=== PATIENT | female | born 1990 | race American Indian/Alaskan Native ===

== ENCOUNTER 2017-01-27 16:36 | Emergency (ER) | payer MEDICAID, OTHER ==
[2017-01-27 17:01] VITALS: BP 126/85
--- NOTE | 2017-01-27 17:51 | Emergency Department Report ---
ED ENT HPI - General Chief complaint: Earache Stated complaint: BILAT EARACHE Time Seen by Provider: 01/27/17 17:47 Source: patient Mode of arrival: Ambulatory Limitations: No Limitations - History of Present Illness Initial comments: Patient complains of bilateral ear pain that started one month ago complaint: ear pain (bilateral) Onset/Timin -: month(s) Location: R ear, L ear Severity: severe Severity scale (0 -10): 9 Quality: aching Consistency: constant Improves with: none Worsens with: swallowing, eating Context-Epistaxis: other (none) Context- Dental: poor dental care, other Context- Ear: other (none) Associated Symptoms: denies: fever, cough, gum swelling, toothache, pain with swallowing, sore throat, tinnitus, hearing loss, discharge from ear, rhinorrhea - Related Data Previous Rx's Medication Instructions Recorded Last Taken Type Ferrous Sulfate [Feosol 325 MG tab] 325 mg PO BID #60 tablet 09/03/15 Unknown Rx HYDROcodone/APAP 5-325 [[place] 1 each PO Q6HR PRN #30 tablet 09/03/15 Unknown Rx 5/325] Ibuprofen [Motrin] 800 mg PO Q8HR PRN #30 tablet 09/03/15 Unknown Rx Vit W-Ca,Fe,FA(<1 mg) 1 each PO DAILY #30 tablet 09/03/15 Unknown Rx [ Vitamins] Acetaminophen/Codeine [Tylenol #3] 1 tab PO Q6H PRN #15 tab 09/10/15 Unknown Rx Penicillin Vk [Veetids TAB] 500 mg PO TID #30 tablet 09/10/15 Unknown Rx Amoxicillin [Amoxicillin TAB] 875 mg PO BID #20 tablet 01/27/17 Unknown Rx Ibuprofen [Motrin 800 MG tab] 800 mg PO Q8HR PRN #30 tablet 01/27/17 Unknown Rx Allergies Allergy/AdvReac Type Severity Reaction Status Date / Time beeswax Allergy Swelling Verified 09/10/15 11:35 sun Allergy Swelling Uncoded 09/10/15 11:35 ED Dental HPI - General Chief complaint: Earache Stated complaint: BILAT EARACHE Source: patient Mode of arrival: Ambulatory Limitations: No Limitations - Related Data Previous Rx's Medication Instructions Recorded Last Taken Type Ferrous Sulfate [Feosol 325 MG tab] 325 mg PO BID #60 tablet 09/03/15 Unknown Rx HYDROcodone/APAP 5-325 [[place] 1 each PO Q6HR PRN #30 tablet 09/03/15 Unknown Rx 5/325] Ibuprofen [Motrin] 800 mg PO Q8HR PRN #30 tablet 09/03/15 Unknown Rx Vit W-Ca,Fe,FA(<1 mg) 1 each PO DAILY #30 tablet 09/03/15 Unknown Rx [ Vitamins] Acetaminophen/Codeine [Tylenol #3] 1 tab PO Q6H PRN #15 tab 09/10/15 Unknown Rx Penicillin Vk [Veetids TAB] 500 mg PO TID #30 tablet 09/10/15 Unknown Rx Amoxicillin [Amoxicillin TAB] 875 mg PO BID #20 tablet 01/27/17 Unknown Rx Ibuprofen [Motrin 800 MG tab] 800 mg PO Q8HR PRN #30 tablet 01/27/17 Unknown Rx Allergies Allergy/AdvReac Type Severity Reaction Status Date / Time beeswax Allergy Swelling Verified 09/10/15 11:35 sun Allergy Swelling Uncoded 09/10/15 11:35 ED Review of Systems ROS: Stated complaint: BILAT EARACHE Other details as noted in HPI Constitutional: denies: chills, diaphoresis, fever, malaise, weakness Eyes: denies: eye pain, eye discharge, vision change ENT: ear pain (bilateral). denies: throat pain, dental pain, hearing loss, epistaxis, congestion Respiratory: denies: cough, orthopnea, shortness of breath, SOB with exertion, SOB at rest, stridor, wheezing Cardiovascular: denies: chest pain, palpitations, dyspnea on exertion, orthopnea , edema, syncope, paroxysmal nocturnal dyspnea Skin: denies: rash, lesions, change in color, change in hair/nails, pruritus Neurological: denies: headache, weakness, numbness, paresthesias, confusion ED Past Medical Hx - Past Medical History Hx Hypertension: Yes (txtd with Labetolol 100mg BID) Hx Diabetes: ("borderline") Hx Deep Vein Thrombosis: No Hx Renal Disease: No Hx Sickle Cell Disease: No Hx Seizures: No Hx Asthma: No Hx HIV: No Additional medical history: anemia - Surgical History Additional Surgical History: csection X 2 - Social History Smoking Status: Never Smoker Substance Use Type: None - Medications Home Medications: Home Medications Medication Instructions Recorded Confirmed Last Taken Type Ferrous Sulfate [Feosol 325 MG tab] 325 mg PO BID #60 tablet 09/03/15 Unknown Rx HYDROcodone/APAP 5-325 [[place] 1 each PO Q6HR PRN #30 tablet 09/03/15 Unknown Rx 5/325] Ibuprofen [Motrin] 800 mg PO Q8HR PRN #30 tablet 09/03/15 Unknown Rx Vit W-Ca,Fe,FA(<1 mg) 1 each PO DAILY #30 tablet 09/03/15 Unknown Rx [ Vitamins] Acetaminophen/Codeine [Tylenol #3] 1 tab PO Q6H PRN #15 tab 09/10/15 Unknown Rx Penicillin Vk [Veetids TAB] 500 mg PO TID #30 tablet 09/10/15 Unknown Rx Amoxicillin [Amoxicillin TAB] 875 mg PO BID #20 tablet 01/27/17 Unknown Rx Ibuprofen [Motrin 800 MG tab] 800 mg PO Q8HR PRN #30 tablet 01/27/17 Unknown Rx ED Physical Exam - General Limitations: No Limitations General appearance: alert, in no apparent distress - Head Head exam: Present: atraumatic, normocephalic, normal inspection - Eye Eye exam: Present: normal appearance, PERRL, EOMI Pupils: Present: normal accommodation - ENT ENT exam: Present: normal orophraynx, mucous membranes moist. Absent: mucous membranes dry - Expanded ENT Exam Expanded Ear exam: Present: normal external inspection. Absent: auricular hematoma, auricular trauma TM/Canal exam: Erythema: Right TM, Canal Tenderness: Left TM Mouth exam: Present: normal external inspection, tongue normal. Absent: drooling, trismus, muffled voice, tongue elevation, laceration Teeth exam: Present: normal inspection Throat exam: Positive: normal inspection. Negative: tonsillar erythema, tonsillomegaly, tonsillar exudate, R peritonsillar mass, L peritonsillar mass - Neck Neck exam: Present: normal inspection, full ROM. Absent: tenderness, meningismus, lymphadenopathy, thyromegaly - Respiratory Respiratory exam: Present: normal lung sounds bilaterally. Absent: respiratory distress, wheezes, rales, rhonchi, stridor, chest wall tenderness, accessory muscle use, decreased breath sounds, prolonged expiratory - Cardiovascular Cardiovascular Exam: Present: regular rate, normal rhythm, normal heart sounds. Absent: systolic murmur, diastolic murmur, rubs, gallop, clicks, JVD, S3 - Extremities Exam Extremities exam: Present: normal inspection, full ROM, normal capillary refill. Absent: pedal edema, joint swelling - Back Exam Back exam: Present: normal inspection, full ROM - Neurological Exam Neurological exam: Present: alert, oriented X3, CN II-XII intact, normal gait, reflexes normal. Absent: motor sensory deficit - Psychiatric Psychiatric exam: Present: normal affect, normal mood. Absent: depressed, agitated - Skin Skin exam: Present: warm, dry, intact, normal color. Absent: rash ED Course Vital Signs 01/27/17 16:59 Temperature 98.3 F Pulse Rate 94 H Respiratory 18 Rate Blood Pressure 126/85 O2 Sat by Pulse 100 Oximetry ED Medical Decision Making - Lab Data Vital Signs 01/27/17 16:59 Temperature 98.3 F Pulse Rate 94 H Respiratory 18 Rate Blood Pressure 126/85 O2 Sat by Pulse 100 Oximetry - Medical Decision Making During the course of ED, all other systems are unremarkable except for documentation in HPI. Patient was sent home with prescriptions for Ibuprofen and Amoxicillin, instructed to follow up with the selective referral given at discharge, she verbalized understanding - Differential Diagnosis Otitis Media, Otitis Externa, URI Critical care attestation.: If time is entered above; I have spent that time in minutes in the direct care of this critically ill patient, excluding procedure time. ED Disposition Clinical Impression: Otitis media Qualifiers: Otitis media type: suppurative Chronicity: acute Laterality: right Recurrence: not specified as recurrent Spontaneous tympanic membrane rupture: without spontaneous rupture Qualified Code(s): H66.001 - Acute suppurative otitis media without spontaneous rupture of ear drum, right ear Otitis externa Qualifiers: Otitis externa type: unspecified type Chronicity: acute Laterality: left Qualified Code(s): H60.502 - Unspecified acute noninfective otitis externa, left ear Disposition: - TO HOME OR SELFCARE Is pt being admited?: No Does the pt Need Aspirin: No Condition: Stable Instructions: Otitis Media (ED), Otitis Externa (ED) Additional Instructions: Take medication as directed. Follow up with the selective referral given at discharge Prescriptions: Amoxicillin [Amoxicillin TAB] 875 mg PO BID #20 tablet Ibuprofen [Motrin 800 MG tab] 800 mg PO Q8HR PRN #30 tablet PRN Reason: Pain Referrals: ANNE DURÁN MD [Staff Physician] - 3-5 Days KATELYN SILVEIRA MD [Staff Physician] - 3-5 Days FREE,JOE Kelsey MD [Staff Physician] - 3-5 Days Forms: Work/School Release Form(ED) Time of Disposition: 17:53
== END 2017-01-27 18:06 | disposition home or self-care (01) ==
LOC: ED 16:36
DX: H66.001 Acute suppurative otitis media without spontaneous rupture of ear drum, right ear (principal); H60.502 Unspecified acute noninfective otitis externa, left ear; E11.9 Type 2 diabetes mellitus without complications; D64.9 Anemia, unspecified; Z88.8 Allergy status to other drugs, medicaments and biological substances
CPT/HCPCS: 99282

== ENCOUNTER 2017-04-21 02:07 | Emergency (ER) | payer SELFPAY ==
[2017-04-21 03:09] LABS: Basophils % (Auto) 0.7 % (0.0-1.8); Eosinophils % (Auto) 2.3 % (0.0-4.3); Hematocrit 38.6 % (30.3-42.9); Hemoglobin 12.9 gm/dl (10.1-14.3); Mean Corpuscular HGB Conc 34 % (30-34); Mean Corpuscular Hemoglobin 28 pg (28-32); Mean Corpuscular Volume 85 fl (79-97); Platelet Count 260 K/mm3 (140-440); Red Blood Count 4.56 M/mm3 (3.65-5.03); Red Cell Distribution Width 15.2 % (13.2-15.2); White Blood Count 5.8 K/mm3 (4.5-11.0)
[2017-04-21 03:22] LABS: Anion Gap 17 mmol/L; BUN/Creatinine Ratio 15; Blood Urea Nitrogen 9 mg/dL (7-17); Carbon Dioxide 22 mmol/L (22-30); Chloride 101.4 mmol/L (98-107); Glucose 106 mg/dL (65-100); Potassium 3.7 mmol/L (3.6-5.0); Sodium 137 mmol/L (137-145)
[2017-04-21 03:51] LABS: Bilirubin,Urine NEG (Negative); Blood,Urine MOD (Negative); Ketones,Urine NEG (Negative); Leukocyte Esterase,Urine SM (Negative); Mucus,Urine FEW /HPF; Nitrite,Urine NEG (Negative); Protein,Urine <15 mg/dL mg/dL (Negative)
--- NOTE | 2017-04-21 06:06 | Ultrasound Report ---
FINAL REPORT PROCEDURE: US OB < = 14 WEEKS FETUS TECHNIQUE: Real-time transabdominal sonography of the uterus, placenta, amniotic fluid, adnexa, and fetus was performed with image documentation. Measurements were obtained to determine age/size. M-mode Doppler was used to document heartbeat. CPT 08343 HISTORY: vag bleeding COMPARISON: No prior studies are available for comparison. FINDINGS: Gestational Sac: Gestational sac measures 10.4 millimeters corresponding to estimated gestational age of 5 weeks and 5 days. There is a yolk sac. There is no visible pole or cardiac activity. Amniotic fluid: Normal. Cervix: Normal. Right Ovary: Normal. Left Ovary: Normal. Estimated delivery date: 12/17/2017 Uterus and adnexa: Normal. IMPRESSION: Probable normal early intrauterine gestation at 5 weeks and 5 days although at this time no pole or cardiac activity is detected. Followup is recommended.
--- NOTE | 2017-04-21 06:11 | Ultrasound Report ---
FINAL REPORT PROCEDURE: US OB TRANSVAGINAL TECHNIQUE: Real-time transvaginal sonography of the uterus, placenta, amniotic fluid, adnexa, and fetus was performed with image documentation. Measurements were obtained to determine age/size. M-mode Doppler was used to document heartbeat. CPT 23960 HISTORY: vag bleeding COMPARISON: No prior studies are available for comparison. FINDINGS: Gestational Sac: Gestational sac measures 10.4 millimeters corresponding to estimated gestational age of 5 weeks and 5 days. There is a yolk sac. There is no visible pole or cardiac activity. Amniotic fluid: Normal. Cervix: Normal. Right Ovary: Normal. Left Ovary: Normal. Estimated delivery date: 12/17/2017 Uterus and adnexa: Normal. IMPRESSION: Probable normal early intrauterine gestation at 5 weeks and 5 days although at this time no pole or cardiac activity is detected. Followup is recommended.
--- NOTE | 2017-04-21 09:23 | Emergency Department Report ---
HPI - General Chief Complaint: Vaginal Bleeding Time Seen by Provider: 04/21/17 09:12 - HPI HPI: Room 8 The patient is a 27-year-old female presenting with a chief complaint of vaginal bleeding. The patient states she is but has not yet seen an OB /[facility] for this . The patient states she had intercourse last night and then developed a small amount of vaginal bleeding. Patient states the vaginal bleeding stopped when she arrived to the ED. Patient denies abdominal pain. Patient currently denies any complaints Location: Pelvis Duration: [See above] Quality: Painless vaginal bleeding Severity: Mild Modifying factors: [see above] Context: [see above] Mode of transportation: Unknown. Visitor at bedside lying on stretcher with patient ED Past Medical Hx - Past Medical History Previous Medical History?: Yes Hx Hypertension: Yes (txtd with Labetolol 100mg BID) Hx Diabetes: ("borderline") Additional medical history: anemia - Surgical History Past Surgical History?: Yes Additional Surgical History: csection X 2 - Family History Family history: no significant - Social History Smoking Status: Current Some Day Smoker Substance Use Type: None (denies illicit drug use) - Medications Home Medications: Home Medications Medication Instructions Recorded Confirmed Last Taken Type Ferrous Sulfate [Feosol 325 MG tab] 325 mg PO BID #60 tablet 09/03/15 Unknown Rx HYDROcodone/APAP 5-325 [[place] 1 each PO Q6HR PRN #30 tablet 09/03/15 Unknown Rx 5/325] Ibuprofen [Motrin] 800 mg PO Q8HR PRN #30 tablet 09/03/15 Unknown Rx Vit Calc,Iron,Folic 1 each PO DAILY #30 tablet 09/03/15 Unknown Rx [ Vitamins] Acetaminophen/Codeine [Tylenol #3] 1 tab PO Q6H PRN #15 tab 09/10/15 Unknown Rx Penicillin Vk [Veetids TAB] 500 mg PO TID #30 tablet 09/10/15 Unknown Rx Amoxicillin [Amoxicillin TAB] 875 mg PO BID #20 tablet 01/27/17 Unknown Rx Ibuprofen [Motrin 800 MG tab] 800 mg PO Q8HR PRN #30 tablet 01/27/17 Unknown Rx ED Review of Systems ROS: Stated complaint: Vaginal Bleeding Other details as noted in HPI Comment: All other systems reviewed and negative Constitutional: denies: chills, fever Eyes: denies: eye pain, eye discharge, vision change ENT: denies: ear pain, throat pain Respiratory: denies: cough, shortness of breath, wheezing Cardiovascular: denies: chest pain, palpitations Endocrine: no symptoms reported Gastrointestinal: denies: abdominal pain Genitourinary: abnormal menses Musculoskeletal: denies: back pain, joint swelling, arthralgia Skin: denies: rash, lesions Neurological: denies: headache, weakness, paresthesias Psychiatric: denies: anxiety, depression Hematological/Lymphatic: denies: easy bleeding, easy bruising Physical Exam - Physical Exam Vital Signs: Vital Signs 04/21/17 04/21/17 02:12 07:24 Temperature 98.7 F 98.4 F Pulse Rate 92 H 74 Respiratory 17 16 Rate Blood Pressure 125/64 Blood Pressure 105/59 [Left] O2 Sat by Pulse 99 100 Oximetry Physical Exam: GENERAL: The patient is well-developed well-nourished female sleeping on stretcher not appearing to be in acute distress. And easily awakened and in no acute distress HEENT: Normocephalic. Atraumatic. Extraocular motions are intact. Patient has moist mucous membranes. NECK: Supple. Trachea midline CHEST/LUNGS: Clear to auscultation. There is no respiratory distress noted. HEART/CARDIOVASCULAR: Regular. There is no tachycardia. There is no gallop rub or murmur. ABDOMEN: Abdomen is soft, nontender. Patient has normal bowel sounds. There is no abdominal distention. SKIN: There is no rash. There is no edema. There is no diaphoresis. NEURO: The patient is awake, alert, and oriented. The patient is cooperative. The patient has normal speech MUSCULOSKELETAL: There is no evidence of acute injury. ED Course Vital Signs 04/21/17 04/21/17 02:12 07:24 Temperature 98.7 F 98.4 F Pulse Rate 92 H 74 Respiratory 17 16 Rate Blood Pressure 125/64 Blood Pressure 105/59 [Left] O2 Sat by Pulse 99 100 Oximetry ED Medical Decision Making - Lab Data Result diagrams: 04/21/17 02:53 04/21/17 02:53 Laboratory Tests 04/21/17 04/21/17 04/21/17 02:53 02:53 02:53 WBC 5.8 RBC 4.56 Hgb 12.9 Hct 38.6 MCV 85 MCH 28 MCHC 34 RDW 15.2 Plt Count 260 Lymph % (Auto) 38.2 H [place] % (Auto) 7.8 H Eos % (Auto) 2.3 Baso % (Auto) 0.7 Lymph # 2.2 [place] # 0.5 Eos # 0.1 Baso # 0.0 Seg Neutrophils % 51.0 Seg Neutrophils # 3.0 Sodium 137 Potassium 3.7 Chloride 101.4 Carbon Dioxide 22 Anion Gap 17 BUN 9 Creatinine 0.6 L Estimated GFR > 60 BUN/Creatinine Ratio 15 Glucose 106 H Calcium 9.0 HCG, Quant 04285 H Urine Color Urine Turbidity Urine pH Ur Specific Brock Urine Protein Urine Glucose (UA) Urine Ketones Urine Blood Urine Nitrite Urine Bilirubin Urine Urobilinogen Ur Leukocyte Esterase Urine WBC (Auto) Urine RBC (Auto) U Epithel Cells (Auto) Urine Mucus Blood Type Antibody Screen 04/21/17 04/21/17 02:53 Unknown WBC RBC Hgb Hct MCV MCH MCHC RDW Plt Count Lymph % (Auto) [place] % (Auto) Eos % (Auto) Baso % (Auto) Lymph # [place] # Eos # Baso # Seg Neutrophils % Seg Neutrophils # Sodium Potassium Chloride Carbon Dioxide Anion Gap BUN Creatinine Estimated GFR BUN/Creatinine Ratio Glucose Calcium HCG, Quant Urine Color Yellow Urine Turbidity Clear Urine pH 5.0 Ur Specific [place] 1.020 Urine Protein <15 mg/dl Urine Glucose (UA) Neg Urine Ketones Neg Urine Blood Mod Urine Nitrite Neg Urine Bilirubin Neg Urine Urobilinogen 2.0 Ur Leukocyte Esterase Sm Urine WBC (Auto) 27.0 H Urine RBC (Auto) 2.0 U Epithel Cells (Auto) 9.0 Urine Mucus Few Blood Type O POSITIVE Antibody Screen Negative - Radiology Data Radiology results: report reviewed (pelvic ultrasound), image reviewed (pelvic ultrasound) FINAL REPORT PROCEDURE: US OB TRANSVAGINAL TECHNIQUE: Real-time transvaginal sonography of the uterus, placenta, amniotic fluid, adnexa, and fetus was performed with image documentation. Measurements were obtained to determine age/size. M-mode Doppler was used to document heartbeat. CPT 08221 HISTORY: vag bleeding COMPARISON: No prior studies are available for comparison. FINDINGS: Gestational Sac: Gestational sac measures 10.4 millimeters corresponding to estimated gestational age of 5 weeks and 5 days. There is a yolk sac. There is no visible pole or cardiac activity. Amniotic fluid: Normal. Cervix: Normal. Right Ovary: Normal. Left Ovary: Normal. Estimated delivery date: 12/17/2017 Uterus and adnexa: Normal. IMPRESSION: Probable normal early intrauterine gestation at 5 weeks and 5 days although at this time no pole or cardiac activity is detected. Followup is recommended. Transcribed By: CO Dictated By: JUSTEN REINA MD Electronically Authenticated By: JUSTEN REINA MD Signed Date/Time: 04/21/17208 DD/ 8 TD/TT: 04/21/17208 - Medical Decision Making Patient was advised to be on bedrest and pelvic rest until cleared by her ARCHIVES DIRECTOR - Differential Diagnosis threatened , spontaneous , missed Critical care attestation.: If time is entered above; I have spent that time in minutes in the direct care of this critically ill patient, excluding procedure time. ED Disposition Clinical Impression: Threatened Disposition: [id number] TO HOME OR SELFCARE Is pt being admited?: No Does the pt Need Aspirin: No Condition: Stable Instructions: Threatened Miscarriage (ED) Additional Instructions: Return to the emergency department immediately should you develop worsening symptoms, fever, inability to tolerate food or liquid or any other concerns. Referrals: [facility] [Provider Group] - 3-5 Days Time of Disposition: 09:23
[2017-04-21 09:35] VITALS: BP 118/51
== END 2017-04-21 09:35 | disposition home or self-care (01) ==
LOC: ED 02:07
DX: O20.0 Threatened abortion (principal); I10 Essential (primary) hypertension; E11.9 Type 2 diabetes mellitus without complications; F17.200 Nicotine dependence, unspecified, uncomplicated; Z3A.01 Less than 8 weeks gestation of pregnancy
CPT/HCPCS: 36415; 76801; 76817; 80048; 81001; 84702; 85025; 86850; 86900; 86901; 87086

== ENCOUNTER 2017-09-21 16:04 | Outpatient (CLI) | payer MEDICAID ==
[2017-09-21] MEDS ORDERED: LACTATED RINGERS 1,000 ML IV ONE (16:19)
[2017-09-21] MEDS ORDERED: ZOFRAN IV STA (16:20)
== END 2017-09-21 17:40 | disposition home or self-care (01) ==
LOC: TRG 16:04 → LD 16:04 → TRG 17:40
PROVIDERS: ATTEND Obstetrics & Gynecology
DX: O47.02 False labor before 37 completed weeks of gestation, second trimester (principal); Z79.899 Other long term (current) drug therapy; Z3A.27 27 weeks gestation of pregnancy
CPT/HCPCS: 59025; 82962; 96360; 96374; J2405; J7120

== ENCOUNTER 2017-11-26 13:57 | Outpatient (CLI) | payer MEDICAID ==
[2017-11-26 14:48] LABS: Bacteria,Urine 1+ /HPF (Negative); Mucus,Urine FEW /HPF
[2017-11-26 14:58] LABS: Bilirubin,Urine NEG (Negative); Blood,Urine NEG (Negative); Color,Urine Yellow (Yellow); Urobilinogen,Urine < 2.0 mg/dL (<2.0)
[2017-11-26 15:37] VITALS: BP 108/61
== END 2017-11-26 15:30 | disposition left against medical advice (07) ==
LOC: TRG 13:57
PROVIDERS: ATTEND Obstetrics & Gynecology
DX: O47.1 False labor at or after 37 completed weeks of gestation (principal); Z3A.37 37 weeks gestation of pregnancy
CPT/HCPCS: 59025; 81001

== ENCOUNTER 2017-12-05 08:20 | Outpatient (CLI) | payer MEDICAID ==
[2017-12-05 08:57] VITALS: BP 104/67
== END 2017-12-05 09:40 | disposition left against medical advice (07) ==
LOC: TRG 08:20
PROVIDERS: ATTEND Obstetrics & Gynecology
DX: O47.1 False labor at or after 37 completed weeks of gestation (principal); Z87.891 Personal history of nicotine dependence; Z3A.38 38 weeks gestation of pregnancy

== ENCOUNTER 2018-10-27 13:41 | Inpatient (IN) | payer MEDICAID ==
[2018-10-27] MEDS ORDERED: XOPENEX IH ONE (13:55)
[2018-10-27] MEDS ORDERED: ATROVENT IH ONE ×3 (13:56→19:31)
[2018-10-27] MEDS ORDERED: PEPCID IV ONE (14:23)
[2018-10-27] MEDS ORDERED: PROVENTIL IH ONE ×2 (14:23→18:54)
[2018-10-27] MEDS ORDERED: SOLU-Medrol IV ONE (14:23)
[2018-10-27] MEDS ORDERED: MAGNESIUM SULFATE 2GM/50ML 2 GM/50 ML BAG IV ONE (14:23)
[2018-10-27] MEDS ORDERED: NACL 0.9% 500 ML 500 ML IV ONE ×2 (14:24→16:26)
--- NOTE | 2018-10-27 14:25 | Emergency Department Report ---
ED General Adult HPI - General Chief complaint: Dyspnea/Respdistress Stated complaint: CHEST PAIN/SOB Time Seen by Provider: 10/27/18 14:14 Source: patient, RN notes reviewed, old records reviewed Mode of arrival: Ambulatory Limitations: No Limitations - History of Present Illness Initial comments: This is a 28-year-old female. The patient is not known to this provider previously. She reports that she is 6, para 5. Last menstrual period is March 13. Reports no chronic medical conditions. Her primary care [employer] doctor is [facility] The patient presents to the emergency room today with complaint of cough, wheezing, shortness of breath, chest wall pain. She does not have a formal diagnosis of asthma. She does not smoke cigarettes. Her symptoms started a day or 2 ago. The cough and wheezing and shortness of breath are constant. It was with physical exertion. It decreased with rest. The chest wall pain is central. It increases with palpation. It decreases with rest. There is no vomiting, diaphoresis. There is no leg pain. There is no leg swelling. No recent aspirin consumption. Patient reports she is approximately 32 weeks and 4 days . Endorses compliance with outpatient medications. -: Gradual Location: chest Severity scale (0 -10): 6 Quality: aching Consistency: intermittent Improves with: rest Worsens with: other (chest wall pain increases with coughing, movement and palpation) Associated Symptoms: chest pain, cough - Related Data Previous Rx's Medication Instructions Recorded Last Taken Type Ferrous Sulfate [Feosol 325 MG tab] 325 mg PO BID #60 tablet 09/03/15 11/26/17 09:00 Rx 1 Vit Calc,Iron,Folic 1 each PO DAILY #30 tablet 09/03/15 11/26/17 09:00 Rx [ Vitamins] Allergies Allergy/AdvReac Type Severity Reaction Status Date / Time beeswax Allergy Swelling Verified 10/27/18 13:41 sun Allergy Swelling Uncoded 09/10/15 11:35 ED Review of Systems ROS: Stated complaint: CHEST PAIN/SOB Other details as noted in HPI Constitutional: malaise. denies: fever ENT: congestion Respiratory: cough, shortness of breath, SOB with exertion, wheezing Cardiovascular: chest pain Gastrointestinal: denies: abdominal pain, nausea, vomiting Genitourinary: denies: dysuria Musculoskeletal: denies: back pain Skin: denies: lesions Neurological: denies: headache, weakness Psychiatric: anxiety ED Past Medical Hx - Past Medical History Hx Hypertension: Yes (dx at 14 yrs old takes lisinopril 10mg d/cd during ) Hx Diabetes: No (?gdm) Hx Deep Vein Thrombosis: No Hx Renal Disease: No Hx Sickle Cell Disease: No Hx Seizures: No Hx Asthma: No Hx COPD: No Hx HIV: No Additional medical history: anemia - Surgical History Additional Surgical History: csection X 2 - Social History Smoking Status: Former Smoker Substance Use Type: None - Medications Home Medications: Home Medications Medication Instructions Recorded Confirmed Last Taken Type Ferrous Sulfate [Feosol 325 MG tab] 325 mg PO BID #60 tablet 09/03/15 11/26/17 11/26/17 09:00 Rx 1 Vit Calc,Iron,Folic 1 each PO DAILY #30 tablet 09/03/15 11/26/17 09:00 Rx [ Vitamins] ED Physical Exam - General Limitations: No Limitations General appearance: alert, in distress, obese - Head Head exam: Present: atraumatic, normocephalic - Eye Eye exam: Present: normal appearance, EOMI. Absent: nystagmus - ENT ENT exam: Present: normal exam, normal orophraynx, mucous membranes moist, normal external ear exam - Neck Neck exam: Present: normal inspection, full ROM. Absent: tenderness, meningismus - Respiratory Respiratory exam: Present: respiratory distress, wheezes, rhonchi - Cardiovascular Cardiovascular Exam: Present: normal rhythm, tachycardia, normal heart sounds. Absent: systolic murmur, diastolic murmur, rubs, gallop - GI/Abdominal GI/Abdominal exam: Present: soft, other (uterus consistent with size and dates.). Absent: distended, tenderness, guarding, rigid, pulsatile mass - Extremities Exam Extremities exam: Present: normal inspection, full ROM, other (2+ pulses noted in the bilateral upper, lower extremities. Compartments soft. No long bony tenderness. The pelvis is stable.). Absent: joint swelling, calf tenderness - Back Exam Back exam: Present: normal inspection, full ROM. Absent: tenderness, CVA tenderness (R), CVA tenderness (L), paraspinal tenderness, vertebral tenderness - Neurological Exam Neurological exam: Present: alert, oriented X3, other (Extraocular movements intact. Tongue midline. No facial droop. Facial sensation intact to light touch in the V1, V2, V3 distribution bilaterally. 5 and 5 strength in 4 extremities.. Sensation is intact to light touch in 4 extremities.). Absent: motor sensory deficit - Psychiatric Psychiatric exam: Present: anxious - Skin Skin exam: Present: warm, dry, intact, normal color. Absent: rash ED Course Vital Signs 10/27/18 10/27/18 10/27/18 13:49 14:00 14:01 Temperature Pulse Rate 129 H 129 H Pulse Rate [ 128 H Anterior Bilateral] Respiratory 21 20 Rate Respiratory 32 H Rate [Anterior Bilateral] Blood Pressure 104/65 O2 Sat by Pulse 97 99 Oximetry 10/27/18 10/27/18 10/27/18 14:09 14:20 14:30 Temperature Pulse Rate 122 H Pulse Rate [ 126 H Anterior Bilateral] Respiratory 32 H Rate Respiratory 32 H Rate [Anterior Bilateral] Blood Pressure 125/72 O2 Sat by Pulse 99 98 Oximetry 10/27/18 10/27/18 10/27/18 14:31 14:46 15:01 Temperature 99 F Pulse Rate 126 H Pulse Rate [ 119 H Anterior Bilateral] Respiratory 30 H Rate Respiratory 24 Rate [Anterior Bilateral] Blood Pressure 132/69 O2 Sat by Pulse 97 Oximetry 10/27/18 10/27/18 10/27/18 15:31 16:01 17:01 Temperature Pulse Rate 123 H 127 H Pulse Rate [ Anterior Bilateral] Respiratory 21 12 Rate Respiratory Rate [Anterior Bilateral] Blood Pressure 132/69 123/67 111/43 O2 Sat by Pulse 97 96 98 Oximetry 10/27/18 18:00 Temperature Pulse Rate 129 H Pulse Rate [ Anterior Bilateral] Respiratory 31 H Rate Respiratory Rate [Anterior Bilateral] Blood Pressure 101/58 O2 Sat by Pulse 95 Oximetry - Reevaluation(s) Reevaluation #1: 10/27/18 17:45 Differential diagnosis, including but not limited to:, bronchitis, asthma, COPD, pneumonia, pulmonary embolus, myocarditis, pericarditis, acute coronary syndrome, costochondritis 10/27/18 17:46 Assessment and plan: 28-year-old female who is , with cough, wheezing, chest wall tenderness, suspect bronchitis with superimposed costochondritis. However, she is very tachycardic, and she reports this is never happened to her before. Therefore, evaluation for pulmonary embolus is indicated. Patient does not endorse any independent or isolated-like symptoms. There before, as per current algorithm make recommendations, imaging is indic ated in the context of an elevated d-dimer. I had extensive discussion with the patient and family present, also with nurse Rodrigue Grace present We discussed the various options of diagnostic workup, including VQ scan versus CT angiogram versus not obtaining any diagnostic imaging. The risks, benefits, alternatives and side effects were discussed with the patient of these particular option. The patient has given informed written and verbal consent for CT angiogram of the chest. She is fairly tachycardic, this may be secondary to albuterol, anxiety, physiologic tachycardia of . We will therefore also treat the patient's pain and give her IV fluids.. Troponin is negative 2. EKG morphologically unchanged 2. Creatinine kinase pending. Clinically do not suspect acute coronary syndrome at this time. 10/27/18 17:53 Reevaluation #2: 10/27/18 18:55 CT scan of the chest unfortunately nondiagnostic. No large pulmonary embolus is identified. Limited evaluation in the distal branches is noted. Question pneumonia/groundglass opacities in the left lung apex. Patient still tachycardic. Still having rhonchi. Appears uncomfortable. We will cover empirically for community-acquired pneumonia. Given the history and physical, I do not clinically suspect significant pulmonary embolus at this time. Given that she has a viable , I will withhold systemic anticoagulation at this time. We will withhold aspirin, given that her chest pain is likely coming from possible early pneumonia, and presumed costochondritis. Hospital team was paged to arrange admission. In addition, given her vital sign abnormalities, the patient is meeting criteria for systemic inflammatory response syndrome. 10/27/18 19:05 Reevaluation #3: 10/27/18 19:13 Dr. Escalona accepts to the medical service. ED Medical Decision Making - Lab Data Result diagrams: 10/27/18 14:37 10/27/18 14:37 Vital Signs 10/27/18 10/27/18 10/27/18 13:49 14:00 14:01 Temperature Pulse Rate 129 H 129 H Pulse Rate [ 128 H Anterior Bilateral] Respiratory 21 20 Rate Respiratory 32 H Rate [Anterior Bilateral] Blood Pressure 104/65 O2 Sat by Pulse 97 99 Oximetry 05/27/19 05/27/19 05/27/19 14:09 14:20 14:30 Temperature Pulse Rate 122 H Pulse Rate [ 126 H Anterior Bilateral] Respiratory 32 H Rate Respiratory 32 H Rate [Anterior Bilateral] Blood Pressure 125/72 O2 Sat by Pulse 99 98 Oximetry 10/27/18 10/27/18 10/27/18 14:31 14:46 15:01 Temperature 99 F Pulse Rate 126 H Pulse Rate [ 119 H Anterior Bilateral] Respiratory 30 H Rate Respiratory 24 Rate [Anterior Bilateral] Blood Pressure 132/69 O2 Sat by Pulse 97 Oximetry 10/27/18 10/27/18 10/27/18 15:31 16:01 17:01 Temperature Pulse Rate 123 H 127 H Pulse Rate [ Anterior Bilateral] Respiratory 21 12 Rate Respiratory Rate [Anterior Bilateral] Blood Pressure 132/69 123/67 111/43 O2 Sat by Pulse 97 96 98 Oximetry Lab Results 10/27/18 10/27/18 10/27/18 Range/Units 14:37 14:37 14:37 WBC 6.3 (4.5-11.0) K/mm3 RBC 4.10 (3.65-5.03) M/mm3 Hgb 9.0 L (10.1-14.3) gm/dl Hct 28.9 L (30.3-42.9) % MCV 71 L (79-97) fl MCH 22 L (28-32) pg MCHC 31 (30-34) % RDW 20.7 H (13.2-15.2) % Plt Count 198 (140-440) K/mm3 Lymph % (Auto) 23.3 (13.4-35.0) % [place] % (Auto) 12.3 H (0.0-7.3) % Eos % (Auto) 0.4 (0.0-4.3) % Baso % (Auto) 0.2 (0.0-1.8) % Lymph # 1.5 (1.2-5.4) K/mm3 [place] # 0.8 (0.0-0.8) K/mm3 Eos # 0.0 (0.0-0.4) K/mm3 Baso # 0.0 (0.0-0.1) K/mm3 Seg Neutrophils % 63.8 (40.0-70.0) % Seg Neutrophils # 4.0 (1.8-7.7) K/mm3 PT 13.2 (12.2-14.9) Sec. INR 0.95 (0.87-1.13) D-Dimer 612.61 H (0-234) ng/mlDDU Sodium 136 L (137-145) mmol/L Potassium 3.5 L (3.6-5.0) mmol/L Chloride 103.3 (98-107) mmol/L Carbon Dioxide 19 L (22-30) mmol/L Anion Gap 17 mmol/L BUN 4 L (7-17) mg/dL Creatinine 0.4 L (0.7-1.2) mg/dL Estimated GFR > 60 ml/min BUN/Creatinine Ratio 10 % Glucose 86 (65-100) mg/dL Calcium 8.8 (8.4-10.2) mg/dL Magnesium (1.7-2.3) mg/dL Total Bilirubin (0.1-1.2) mg/dL Direct Bilirubin (0-0.2) mg/dL Indirect Bilirubin mg/dL AST (5-40) units/L ALT (7-56) units/L Alkaline Phosphatase (35-129) units/L Troponin T (0.00-0.029) ng/mL NT-Pro-B Natriuret Pep (0-450) pg/mL Total Protein (6.3-8.2) g/dL Albumin (3.9-5) g/dL Albumin/Globulin Ratio % Urine Color (Yellow) Urine Turbidity (Clear) Urine pH (5.0-7.0) Ur Specific [place] (1.003-1.030) Urine Protein (Negative) mg/dL Urine Glucose (UA) (Negative) mg/dL Urine Ketones (Negative) mg/dL Urine Blood (Negative) Urine Nitrite (Negative) Urine Bilirubin (Negative) Urine Urobilinogen (<2.0) mg/dL Ur Leukocyte Esterase (Negative) Urine WBC (Auto) (0.0-6.0) /HPF Urine RBC (Auto) (0.0-6.0) /HPF U Epithel Cells (Auto) (0-13.0) /HPF Urine Mucus /HPF 10/27/18 10/27/18 10/27/18 Range/Units 14:37 15:46 16:32 WBC (4.5-11.0) K/mm3 RBC (3.65-5.03) M/mm3 Hgb (10.1-14.3) gm/dl Hct (30.3-42.9) % MCV (79-97) fl MCH (28-32) pg MCHC (30-34) % RDW (13.2-15.2) % Plt Count (140-440) K/mm3 Lymph % (Auto) (13.4-35.0) % [place] % (Auto) (0.0-7.3) % Eos % (Auto) (0.0-4.3) % Baso % (Auto) (0.0-1.8) % Lymph # (1.2-5.4) K/mm3 [place] # (0.0-0.8) K/mm3 Eos # (0.0-0.4) K/mm3 Baso # (0.0-0.1) K/mm3 Seg Neutrophils % (40.0-70.0) % Seg Neutrophils # (1.8-7.7) K/mm3 PT (12.2-14.9) Sec. INR (0.87-1.13) D-Dimer (0-234) ng/mlDDU Sodium (137-145) mmol/L Potassium (3.6-5.0) mmol/L Chloride (98-107) mmol/L Carbon Dioxide (22-30) mmol/L Anion Gap mmol/L BUN (7-17) mg/dL Creatinine (0.7-1.2) mg/dL Estimated GFR ml/min BUN/Creatinine Ratio % Glucose (65-100) mg/dL Calcium (8.4-10.2) mg/dL Magnesium 1.80 (1.7-2.3) mg/dL Total Bilirubin 0.60 (0.1-1.2) mg/dL Direct Bilirubin < 0.2 (0-0.2) mg/dL Indirect Bilirubin 0.4 mg/dL AST 34 (5-40) units/L ALT 16 (7-56) units/L Alkaline Phosphatase 189 H (35-129) units/L Troponin T < 0.010 < 0.010 (0.00-0.029) ng/mL NT-Pro-B Natriuret Pep 76.90 (0-450) pg/mL Total Protein 6.8 (6.3-8.2) g/dL Albumin 3.6 L (3.9-5) g/dL Albumin/Globulin Ratio 1.1 % Urine Color Yellow (Yellow) Urine Turbidity Slightly-cloudy (Clear) Urine pH 6.0 (5.0-7.0) Ur Specific [place] 1.017 (1.003-1.030) Urine Protein 30 mg/dl (Negative) mg/dL Urine Glucose (UA) Neg (Negative) mg/dL Urine Ketones 20 (Negative) mg/dL Urine Blood Neg (Negative) Urine Nitrite Neg (Negative) Urine Bilirubin Neg (Negative) Urine Urobilinogen < 2.0 (<2.0) mg/dL Ur Leukocyte Esterase Sm (Negative) Urine WBC (Auto) 15.0 H (0.0-6.0) /HPF Urine RBC (Auto) 3.0 (0.0-6.0) /HPF U Epithel Cells (Auto) 5.0 (0-13.0) /HPF Urine Mucus 2+ /HPF - EKG Data -: EKG Interpreted by Ok - EKG Data 10/27/18 17:56 EKG #1 shows a sinus tachycardia, normal axis, normal intervals, motion artifact, QTC within normal limits, not consistent with ST elevation myocardial infarction. EKG #2 appears to be unchanged. - Radiology Data Radiology results: pending, report reviewed, image reviewed CT scan of the chest shows no large pulmonary embolus. Limited evaluation of the mid to distal branches. Few focal ground glass opacities in the left apex, nonspecific, may be related to early infiltrate. Critical care attestation.: If time is entered above; I have spent that time in minutes in the direct care of this critically ill patient, excluding procedure time. ED Disposition Clinical Impression: Chest wall pain, Costochondritis, , SIRS (systemic inflammatory response syndrome) Disposition: OP ADMIT IP TO THIS HOSP Is pt being admited?: Yes Condition: Good Instructions: Chest Pain (ED) Referrals: BENEDICT FREEMAN MD [Primary Care Provider] - 3-5 Days
[2018-10-27 14:44] LABS: Basophils % (Auto) 0.2 % (0.0-1.8); Eosinophils % (Auto) 0.4 % (0.0-4.3); Hematocrit 28.9 % (30.3-42.9); Lymphocytes # (Auto) 1.5 K/mm3 (1.2-5.4); Lymphocytes % (Auto) 23.3 % (13.4-35.0); Mean Corpuscular HGB Conc 31 % (30-34); Mean Corpuscular Volume 71 fl (79-97); Monocytes # (Auto) 0.8 K/mm3 (0.0-0.8); Monocytes % (Auto) 12.3 % (0.0-7.3); Platelet Count 198 K/mm3 (140-440); Red Cell Distribution Width 20.7 % (13.2-15.2)
[2018-10-27 15:02] LABS: BUN/Creatinine Ratio 10; Blood Urea Nitrogen 4 mg/dL (7-17); Calcium 8.8 mg/dL (8.4-10.2); Hemolysis Index 25
[2018-10-27 15:03] LABS: INR 0.95 (0.87-1.13)
[2018-10-27 15:06] LABS: Alanine Aminotransferase 16 units/L (7-56); Albumin 3.6 g/dL (3.9-5)
[2018-10-27 15:08] LABS: Bilirubin,Direct < 0.2 mg/dL (0-0.2)
[2018-10-27 16:09] LABS: Bilirubin,Urine NEG (Negative); Blood,Urine NEG (Negative); Color,Urine Yellow (Yellow); Mucus,Urine 2+ /HPF; Urobilinogen,Urine < 2.0 mg/dL (<2.0)
[2018-10-27] MEDS ORDERED: TYLENOL PO ONE (17:45)
[2018-10-27] MEDS ORDERED: ROCEPHIN/NS 1 GM/50 ML 1 GM/50 ML BAG IV ONE (18:39)
[2018-10-27] MEDS ORDERED: NACL 0.9% 1000 ML 2,000 ML IV ONE (19:03)
[2018-10-27] MEDS ORDERED: NACL 0.9% 1000 ML 1,000 ML IV ONE (19:03)
[2018-10-27] MEDS ORDERED: SODIUM CHLORIDE FLUSH SYRINGE 10 ML IV PRN (19:37)
[2018-10-27] MEDS ORDERED: ZOFRAN IV PRN (19:37)
--- NOTE | 2018-10-27 19:52 | History and Physical Report ---
History of Present Illness Date of examination: 10/27/18 History of present illness: 28 year old woman with a history of hypertension, 32 weeks comes emergency room with complaints of shortness of breath and wheezing that started yesterday. Also complaining of cough productive of ratliff phlegm. She's been using her 's nebulizer treatments without any improvement in her symptoms. Also complaining of pain in the upper chest when she coughs. Former smoker prior to the Review of systems Constitutional: no weight loss, chills, fever Ears, eyes, nose, mouth and throat: no nasal congestion, no nasal discharge, no sinus pressure, no vision change, no red eye. Neck: No neck pain or rigidity. Cardiovascular: no palpitations Respiratory:+ cough, shortness of breath Gastrointestinal: no hematochezia, abdominal pain Genitourinary : no frequency , no hematuria Musculoskeletal: no joint swelling or muscle ache Integumentary: no rash, no pruritis Neurological: no parathesias, no focal weakness Endocrine: no cold or heat intolerance, no polyuria or polydipsia Hematologic/Lymphatic: no easy bruising, no easy bleeding, no gland swelling Allergic/Immunologic: no urticaria, no angioedema. PAST MEDICAL HISTORY:hypertension, PAST SURGICAL HISTORY: 2 SOCIAL HISTORY: Denies alcohol, drugs, tobacco FAMILY HISTORY: Hypertension Medications and Allergies Allergies Allergy/AdvReac Type Severity Reaction Status Date / Time beeswax Allergy Swelling Verified 10/27/18 13:41 sun Allergy Swelling Uncoded 09/10/15 11:35 Home Medications Medication Instructions Recorded Confirmed Last Taken Type Ferrous Sulfate [Feosol 325 MG tab] 325 mg PO BID #60 tablet 09/03/15 11/26/17 11/26/17 09:00 Rx 1 Vit Calc,Iron,Folic 1 each PO DAILY #30 tablet 09/03/15 11/26/17 09:00 Rx [ Vitamins] Active Meds: Active Medications Acetaminophen (Tylenol) 650 mg PO Q4H PRN PRN Reason: Pain MILD(1-3)/Fever >100.5/CHAKRABORTY Enoxaparin Sodium (Lovenox) 30 mg SUB-Q QDAY AMIE Sodium Chloride (Nacl 0.9% 1000 Ml) 1,000 mls @ 999 mls/hr IV BOLUS ONE Stop: 10/27/18 20:03 Last Admin: 10/27/18 19:43 Dose: 999 mls/hr Documented by: Ceftriaxone Sodium (Rocephin/Ns 1 Gm/50 Ml) 1 gm in 50 mls @ 100 mls/hr IV Q24HR AMIE; Protocol Azithromycin 500 mg/ Sodium (Chloride) 250 mls @ 250 mls/hr IV Q24HR AMIE; Protocol Ondansetron HCl (Zofran) 4 mg IV Q4H PRN PRN Reason: Nausea And Vomiting Sodium Chloride (Sodium Chloride Flush Syringe 10 Ml) 10 ml IV BID AMIE Sodium Chloride (Sodium Chloride Flush Syringe 10 Ml) 10 ml IV PRN PRN PRN Reason: LINE FLUSH Exam - Physical Exam Narrative exam: General Apperance: The patient lying in bed, breathing comfortable HEENT: Normocephalic, atraumatic. Pupils equally round and reactive to light, EOMI, no sclericterus or JVD or thyromegaly or nodule. , no carotid bruit, mucous membranes moist, no exudate or erythema Heart: S1-S2, regular is rhythm Lungs: Crackles bilaterally, breathing comfortable Abdomen: Positive bowel sounds, soft, nontender, nondistended, no organomegaly Extremities: No edema cyanosis clubbing Skin: no rash, nodule, warm and dry Neuro: cranial nerves 2-12 intact, speech is fluent, motor/sensory intact - Constitutional Vitals: Temp Pulse Resp BP Pulse Ox 98.1 F 128 H 26 H 116/61 95 10/27/18 19:36 10/27/18 19:36 10/27/18 19:36 10/27/18 19:36 10/27/18 18:00 Results - Labs CBC & Chem 7: 10/27/18 14:37 10/27/18 14:37 Labs: Abnormal lab results 10/27/18 10/27/18 10/27/18 Range/Units 14:37 14:37 14:37 Hgb 9.0 L (10.1-14.3) gm/dl Hct 28.9 L (30.3-42.9) % MCV 71 L (79-97) fl MCH 22 L (28-32) pg RDW 20.7 H (13.2-15.2) % [place] % (Auto) 12.3 H (0.0-7.3) % D-Dimer 612.61 H (0-234) ng/mlDDU Sodium 136 L (137-145) mmol/L Potassium 3.5 L (3.6-5.0) mmol/L Carbon Dioxide 19 L (22-30) mmol/L BUN 4 L (7-17) mg/dL Creatinine 0.4 L (0.7-1.2) mg/dL Alkaline Phosphatase (35-129) units/L Total Creatine Kinase (30-135) units/L Albumin (3.9-5) g/dL Urine WBC (Auto) (0.0-6.0) /HPF 10/27/18 10/27/18 10/27/18 Range/Units 14:37 15:46 17:49 Hgb (10.1-14.3) gm/dl Hct (30.3-42.9) % MCV (79-97) fl MCH (28-32) pg RDW (13.2-15.2) % [place] % (Auto) (0.0-7.3) % D-Dimer (0-234) ng/mlDDU Sodium (137-145) mmol/L Potassium (3.6-5.0) mmol/L Carbon Dioxide (22-30) mmol/L BUN (7-17) mg/dL Creatinine (0.7-1.2) mg/dL Alkaline Phosphatase 189 H (35-129) units/L Total Creatine Kinase 349 H (30-135) units/L Albumin 3.6 L (3.9-5) g/dL Urine WBC (Auto) 15.0 H (0.0-6.0) /HPF - Imaging and Cardiology CT scan - chest: report reviewed Assessment and Plan Assessment Community-acquired pneumonia Plan Admit to medicine Start IV Rocephin, azithromycin, steroids Breathing treatments DVT prophylaxis
[2018-10-27] MEDS: SODIUM CHLORIDE FLUSH SYRINGE 10 ML IV SCH (22:10)
[2018-10-28] MEDS: TYLENOL PO PRN ×3 (01:07→20:33)
[2018-10-28] MEDS: ATROVENT IH PRN ×3 (05:52→14:30)
[2018-10-28 06:26] LABS: Basophils % (Auto) 0.2 % (0.0-1.8); Eosinophils % (Auto) 0.1 % (0.0-4.3); Hematocrit 27.5 % (30.3-42.9); Hemoglobin 8.5 gm/dl (10.1-14.3); Lymphocytes # (Auto) 1.1 K/mm3 (1.2-5.4); Lymphocytes % (Auto) 15.5 % (13.4-35.0); Mean Corpuscular HGB Conc 31 % (30-34); Mean Corpuscular Volume 70 fl (79-97); Monocytes # (Auto) 0.6 K/mm3 (0.0-0.8); Monocytes % (Auto) 9.2 % (0.0-7.3); Platelet Count 207 K/mm3 (140-440)
[2018-10-28 06:52] LABS: BUN/Creatinine Ratio 8; Blood Urea Nitrogen 3 mg/dL (7-17); Calcium 8.5 mg/dL (8.4-10.2); Hemolysis Index 0
[2018-10-28] MEDS ORDERED: LOVENOX SUB-Q SCH ×3 (10:00→13:30)
[2018-10-28] MEDS ORDERED: NACL 0.9% 1000 ML 1,000 ML IV SCH (10:00)
--- NOTE | 2018-10-28 10:14 | Consultation ---
History of Present Illness Consult date: 10/28/18 Reason for consult: other (32weeks 6/7days, dyspnea, tachycardia, tachypneic) History of present illness: 28yo 32wks 6/7days being managed for pneumonia based on CTA finding of focal ground glass opacities. She was started on Cetriaxone and Azithromycin for community-acquired pneumonia. The patient states she experienced dyspnea while at a cookout yesterday. She had coughing and describes pleuritic chest pain. Cardiac enzymes have been normal. EKG reveals sinus tachycardia 120- 130s. She was tachypneic 32 on admission. The CTA was not diagnostic for pulmonary emoblus however it reflected suboptimal evaluation of the pulmonary arteries. She reports good movement, no loss of fluid and no vaginal bleeding. The patient states the nebulizer treatments help for one hour then she returns to baseline dyspnea. She states she has received 5 respiratory treatments since admission. Her has been complicated by morbid obesity (274# at first visit, 10weeks), hypertension - no medications (baseleine 110s/70s), HSV2, Trichomoniasis, Enterococcus faecalis UTI, positive antibody screen and mild anemia. SHE IS A PREVIOUS CSECTION WITH . Patient had a baby in 2018 with FARHEEN one year to the date of her current FARHEEN 12/07/18. 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 History: herpes, trichomonas (negative test of cure) - Obstetrical History : 6 Medications and Allergies Allergies Allergy/AdvReac Type Severity Reaction Status Date / Time beeswax Allergy Swelling Verified 10/27/18 13:41 sun Allergy Swelling Uncoded 09/10/15 11:35 Home Medications Medication Instructions Recorded Confirmed Last Taken Type Ferrous Sulfate [Feosol 325 MG tab] 325 mg PO BID #60 tablet 09/03/15 10/28/18 10/27/18 Rx Vit Calc,Iron,Folic 1 each PO DAILY #30 tablet 09/03/15 10/28/18 10/27/18 Rx [ Vitamins] Active Meds: Active Medications Acetaminophen (Tylenol) 650 mg PO Q4H PRN PRN Reason: Pain MILD(1-3)/Fever >100.5/CHAKRABORTY Last Admin: 10/28/18 08:24 Dose: 650 mg Documented by: Ferrous Sulfate (Feosol) 325 mg PO BID [facility] Ceftriaxone Sodium (Rocephin/Ns 1 Gm/50 Ml) 1 gm in 50 mls @ 100 mls/hr IV Q24HR [facility]; Protocol Azithromycin 500 mg/ Sodium (Chloride) 250 mls @ 250 mls/hr IV Q24HR [facility]; Protocol Sodium Chloride (Nacl 0.9% 1000 Ml) 1,000 mls @ 100 mls/hr IV DIRECT [facility] Ipratropium [place] (Atrovent) 0.5 mg IH Q4H PRN PRN Reason: Wheezing Last Admin: 10/28/18 09:26 Dose: 0.5 mg Documented by: Multivitamins/Iron/Calcium ( Vitamin) 1 each PO DAILY [facility] Ondansetron HCl (Zofran) 4 mg IV Q4H PRN PRN Reason: Nausea And Vomiting Sodium Chloride (Sodium Chloride Flush Syringe 10 Ml) 10 ml IV BID [facility] Last Admin: 10/27/18 22:10 Dose: 10 ml Documented by: Sodium Chloride (Sodium Chloride Flush Syringe 10 Ml) 10 ml IV PRN PRN PRN Reason: LINE FLUSH - Vital Signs Vital signs: Vital Signs Pulse Resp Pulse Ox 129 H 21 97 10/27/18 13:49 10/27/18 13:49 10/27/18 13:49 Temp Pulse Resp BP Pulse Ox 98.2 F 112 H 18 104/56 94 10/28/18 04:09 10/28/18 09:29 10/28/18 09:29 10/28/18 04:08 10/28/18 04:08 - Obstetrical FHR: category 1 Results Result Diagrams: 10/28/18 06:06 10/28/18 06:06 Abnormal lab results 10/27/18 10/27/18 10/27/18 Range/Units 14:37 14:37 14:37 Hgb 9.0 L (10.1-14.3) gm/dl Hct 28.9 L (30.3-42.9) % MCV 71 L (79-97) fl MCH 22 L (28-32) pg RDW 20.7 H (13.2-15.2) % Leon % (Auto) 12.3 H (0.0-7.3) % Lymph # (1.2-5.4) K/mm3 Seg Neutrophils % (40.0-70.0) % D-Dimer 612.61 H (0-234) ng/mlDDU Sodium 136 L (137-145) mmol/L Potassium 3.5 L (3.6-5.0) mmol/L Chloride (98-107) mmol/L Carbon Dioxide 19 L (22-30) mmol/L BUN 4 L (7-17) mg/dL Creatinine 0.4 L (0.7-1.2) mg/dL Glucose (65-100) mg/dL Lactic Acid (0.7-2.0) mmol/L Alkaline Phosphatase (35-129) units/L Total Creatine Kinase (30-135) units/L Albumin (3.9-5) g/dL Urine WBC (Auto) (0.0-6.0) /HPF 10/27/18 10/27/18 10/27/18 Range/Units 14:37 15:46 17:49 Hgb (10.1-14.3) gm/dl Hct (30.3-42.9) % MCV (79-97) fl MCH (28-32) pg RDW (13.2-15.2) % Leon % (Auto) (0.0-7.3) % Lymph # (1.2-5.4) K/mm3 Seg Neutrophils % (40.0-70.0) % D-Dimer (0-234) ng/mlDDU Sodium (137-145) mmol/L Potassium (3.6-5.0) mmol/L Chloride (98-107) mmol/L Carbon Dioxide (22-30) mmol/L BUN (7-17) mg/dL Creatinine (0.7-1.2) mg/dL Glucose (65-100) mg/dL Lactic Acid (0.7-2.0) mmol/L Alkaline Phosphatase 189 H (35-129) units/L Total Creatine Kinase 349 H (30-135) units/L Albumin 3.6 L (3.9-5) g/dL Urine WBC (Auto) 15.0 H (0.0-6.0) /HPF 10/27/18 10/27/18 10/27/18 Range/Units 19:20 20:51 21:30 Hgb (10.1-14.3) gm/dl Hct (30.3-42.9) % MCV (79-97) fl MCH (28-32) pg RDW (13.2-15.2) % Leon % (Auto) (0.0-7.3) % Lymph # (1.2-5.4) K/mm3 Seg Neutrophils % (40.0-70.0) % D-Dimer (0-234) ng/mlDDU Sodium (137-145) mmol/L Potassium (3.6-5.0) mmol/L Chloride (98-107) mmol/L Carbon Dioxide (22-30) mmol/L BUN (7-17) mg/dL Creatinine (0.7-1.2) mg/dL Glucose (65-100) mg/dL Lactic Acid 4.10 H* 4.10 H* 4.10 H* (0.7-2.0) mmol/L Alkaline Phosphatase (35-129) units/L Total Creatine Kinase (30-135) units/L Albumin (3.9-5) g/dL Urine WBC (Auto) (0.0-6.0) /HPF 10/28/18 10/28/18 10/28/18 Range/Units 06:06 06:06 06:06 Hgb 8.5 L (10.1-14.3) gm/dl Hct 27.5 L (30.3-42.9) % MCV 70 L (79-97) fl MCH 22 L (28-32) pg RDW 20.0 H (13.2-15.2) % Leon % (Auto) 9.2 H (0.0-7.3) % Lymph # 1.1 L (1.2-5.4) K/mm3 Seg Neutrophils % 75.0 H (40.0-70.0) % D-Dimer (0-234) ng/mlDDU Sodium (137-145) mmol/L Potassium 3.5 L (3.6-5.0) mmol/L Chloride 107.2 H (98-107) mmol/L Carbon Dioxide 18 L (22-30) mmol/L BUN 3 L (7-17) mg/dL Creatinine 0.4 L (0.7-1.2) mg/dL Glucose 133 H (65-100) mg/dL Lactic Acid 2.30 H* (0.7-2.0) mmol/L Alkaline Phosphatase (35-129) units/L Total Creatine Kinase (30-135) units/L Albumin (3.9-5) g/dL Urine WBC (Auto) (0.0-6.0) /HPF 10/28/18 Range/Units 08:09 Hgb (10.1-14.3) gm/dl Hct (30.3-42.9) % MCV (79-97) fl MCH (28-32) pg RDW (13.2-15.2) % Leon % (Auto) (0.0-7.3) % Lymph # (1.2-5.4) K/mm3 Seg Neutrophils % (40.0-70.0) % D-Dimer (0-234) ng/mlDDU Sodium (137-145) mmol/L Potassium (3.6-5.0) mmol/L Chloride (98-107) mmol/L Carbon Dioxide (22-30) mmol/L BUN (7-17) mg/dL Creatinine (0.7-1.2) mg/dL Glucose (65-100) mg/dL Lactic Acid 2.30 H* (0.7-2.0) mmol/L Alkaline Phosphatase (35-129) units/L Total Creatine Kinase (30-135) units/L Albumin (3.9-5) g/dL Urine WBC (Auto) (0.0-6.0) /HPF All other labs normal. Assessment and Plan - Patient Problems (1) 32 weeks gestation of Current Visit: Yes Status: Acute Plan to address problem: History of previous csection. Reassurring status BPP 01/08 (2) Pneumonia Current Visit: Yes Status: Acute Plan to address problem: Comanaged with internal medicine Afebrile No leukocytosis Continue antibiotics as prescribed. (3) Tachycardia Current Visit: Yes Status: Acute Plan to address problem: Based on clinical presentation of tachycardia, tachypnea, dyspnea and suboptimal evaluation of pulmonary arteries on CTA will start therapeutic dose of Lovenox. Dr. Khan, maternal medicine, agrees with plan. He also recommends ordering Nuclear Medicine Perfusion ONLY scan as recommended by radiation and pulmonary
[2018-10-28] MEDS ORDERED: COLACE PO PRN (10:15)
--- NOTE | 2018-10-28 11:16 | Ultrasound Report ---
ULTRASOUND BIOPHYSICAL PROFILE: History: well being Technique: Transabdominal ultrasound with Doppler interrogation. 2 - breathing movements 2 - movements 2 - posture and tone 2 - Qualitative amniotic fluid volume 8 - TOTAL SCORE OF POSSIBLE 8 Heart Rate (bpm) 131
--- NOTE | 2018-10-28 11:18 | Ultrasound Report ---
OB ULTRASOUND History: Estimated weight, JOS, presentation. Technique: Transabdominal ultrasound with Doppler interrogation. Gestation: Single Position: Cephalic Amniotic Fluid: Normal JOS = 8.9 cm Heart Rate: 131 BPM BPD: 8.3 cm = 33 w 3 d HC: 29.9 cm = 33 w 1 d AC: 29.8 cm = 33 w 6 d FL: 6.0 cm = 31 w 2 d HC/AC Ratio: 1.0 Cephalic Index: 82.7 Estimated Weight: 2097 grams Clinical age = 32 w 5 d EDC: 12/18/18 US Gest. Age = 33 w 0 d EDC: 12/16/18 IMPRESSION: Viable, single intrauterine as described.
[2018-10-28] MEDS: ROCEPHIN/NS 1 GM/50 ML 1 GM/50 ML BAG IV SCH (12:10)
[2018-10-28] MEDS: FEOSOL PO SCH ×2 (12:11→23:11)
[2018-10-28] MEDS: PRENATAL VITAMIN PO SCH (12:11)
[2018-10-28] MEDS: SODIUM CHLORIDE FLUSH SYRINGE 10 ML IV SCH (12:12)
[2018-10-28] MEDS: ZITHROMAX 500 MG in NACL 0.9% 250ML 250 ML IV SCH (13:35)
[2018-10-28] MEDS: PROVENTIL IH SCH (14:31)
[2018-10-28] MEDS: SOLU-Medrol IV SCH ×2 (14:41→23:11)
--- NOTE | 2018-10-28 15:41 | Progress Note ---
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 Medical records and medication list reviewed. No acute event overnight noted by the RN. Complains of wheezing cough and pleuritic chest pain. Patient is tolerating diet. Discussed plan of care at bedside with patient. Objective - Constitutional Vitals: Vital Signs - 12hr 10/28/18 10/28/18 10/28/18 04:08 04:09 04:27 Temperature 98.2 F Pulse Rate 108 H 108 H Pulse Rate [ Anterior Bilateral] Pulse Rate [ Throughout] Respiratory 20 Rate Respiratory Rate [Anterior Bilateral] Respiratory Rate [ Throughout] Blood Pressure 104/56 O2 Sat by Pulse 94 Oximetry 10/28/18 10/28/18 10/28/18 05:55 06:01 09:00 Temperature Pulse Rate Pulse Rate [ 118 H 118 H Anterior Bilateral] Pulse Rate [ Throughout] Respiratory 20 Rate Respiratory 26 H 25 H Rate [Anterior Bilateral] Respiratory Rate [ Throughout] Blood Pressure O2 Sat by Pulse Oximetry 10/28/18 10/28/18 10/28/18 09:29 12:00 14:31 Temperature Pulse Rate 120 H Pulse Rate [ 112 H 124 H Anterior Bilateral] Pulse Rate [ 117 H 125 H Throughout] Respiratory Rate Respiratory 18 20 Rate [Anterior Bilateral] Respiratory 18 20 Rate [ Throughout] Blood Pressure O2 Sat by Pulse Oximetry General appearance: Present: no acute distress, well-nourished - EENT Eyes: PERRL, EOM intact ENT: hearing intact, clear oral mucosa Ears: bilateral: normal - Neck Neck: supple, normal ROM - Respiratory Respiratory: bilateral: wheezing - Cardiovascular Heart Sounds: Present: S1 & S2. Absent: gallop, rub Extremities: pulses intact, No edema, normal color, Full ROM - Gastrointestinal General gastrointestinal: Present: soft, non-tender, non-distended, normal bowel sounds - Integumentary Integumentary: clear, warm, dry - Musculoskeletal Musculoskeletal: 1, strength equal bilaterally - Neurologic Neurologic: moves all extremities - Psychiatric Psychiatric: memory intact, appropriate mood/affect, intact judgment & insight - Labs CBC & Chem 7: 10/29/18 09:43 10/29/18 09:43 Labs: Abnormal lab results 10/27/18 10/27/18 10/27/18 Range/Units 15:46 17:49 19:20 Hgb (10.1-14.3) gm/dl Hct (30.3-42.9) % MCV (79-97) fl MCH (28-32) pg RDW (13.2-15.2) % [place] % (Auto) (0.0-7.3) % Lymph # (1.2-5.4) K/mm3 Seg Neutrophils % (40.0-70.0) % Potassium (3.6-5.0) mmol/L Chloride (98-107) mmol/L Carbon Dioxide (22-30) mmol/L BUN (7-17) mg/dL Creatinine (0.7-1.2) mg/dL Glucose (65-100) mg/dL Lactic Acid 4.10 H* (0.7-2.0) mmol/L Total Creatine Kinase 349 H (30-135) units/L Urine WBC (Auto) 15.0 H (0.0-6.0) /HPF 10/27/18 10/27/18 10/28/18 Range/Units 20:51 21:30 06:06 Hgb (10.1-14.3) gm/dl Hct (30.3-42.9) % MCV (79-97) fl MCH (28-32) pg RDW (13.2-15.2) % [place] % (Auto) (0.0-7.3) % Lymph # (1.2-5.4) K/mm3 Seg Neutrophils % (40.0-70.0) % Potassium (3.6-5.0) mmol/L Chloride (98-107) mmol/L Carbon Dioxide (22-30) mmol/L BUN (7-17) mg/dL Creatinine (0.7-1.2) mg/dL Glucose (65-100) mg/dL Lactic Acid 4.10 H* 4.10 H* 2.30 H* (0.7-2.0) mmol/L Total Creatine Kinase (30-135) units/L Urine WBC (Auto) (0.0-6.0) /HPF 10/28/18 10/28/18 10/28/18 Range/Units 06:06 06:06 08:09 Hgb 8.5 L (10.1-14.3) gm/dl Hct 27.5 L (30.3-42.9) % MCV 70 L (79-97) fl MCH 22 L (28-32) pg RDW 20.0 H (13.2-15.2) % [place] % (Auto) 9.2 H (0.0-7.3) % Lymph # 1.1 L (1.2-5.4) K/mm3 Seg Neutrophils % 75.0 H (40.0-70.0) % Potassium 3.5 L (3.6-5.0) mmol/L Chloride 107.2 H (98-107) mmol/L Carbon Dioxide 18 L (22-30) mmol/L BUN 3 L (7-17) mg/dL Creatinine 0.4 L (0.7-1.2) mg/dL Glucose 133 H (65-100) mg/dL Lactic Acid 2.30 H* (0.7-2.0) mmol/L Total Creatine Kinase (30-135) units/L Urine WBC (Auto) (0.0-6.0) /HPF
--- NOTE | 2018-10-28 16:20 | Event Note ---
Arrived to room to evaluate patient and she is clinically patient dyspneic and gasping for air. Spoke with Dr. Ascencio, radiology, CTA report faxed to 4th floor. Upon further discussion he agrees that CTA is suboptimal due to inability to visualize distal pulmonary arteries/veins. He states in cases of low suspicion of PE he recommends a Nuclear Medicine Perfusion ONLY scan. I discussed this with patient and the risk of radiation and the patient at this time declines the nuclear scan. I discussed with her the low suspicion of pulmonary embolism and the limitation of the previous CTA. Due to her risk factors of and morbid obesity with signs and symptoms of dyspena, tachycardia and tachypnea will start therapeutic dose of heparin. Will also place consult to maternal medicine. Transfer patient to L&D for continuous monitoring and continuous pulse oximetry.
--- NOTE | 2018-10-28 16:45 | Consultation ---
History of Present Illness Reason for consult: dyspnea, other (wheezing,IUP) History of present illness: Came to see patient , after paged from 4th floor . Staff could not explained reason of the call on the phone, before my arrival. Tried to access record remotely, limited information on chart showed a consult for PE and Chest CTA with negative preliminary report for PE, questionable for pneumonia. Patient's . Patient moved to [facility]. Briefly, 28 y/o A, iup 33 WKS [place], admitted with 2 days HX of coughing episodes and wheezing. Denies fever or chills. Cough non productive. Denies nasal congestion or drainage. Reportedly with central chest pain at ED, but none to us. No legs pain or edema. No PMH of DVT. Denies PMH of asthma, but reports FMH of asthma in 2 siblings, plus 3 or her kids. Claims to be a nonsmoker Medications and Allergies Allergies Allergy/AdvReac Type Severity Reaction Status Date / Time beeswax Allergy Swelling Verified 10/27/18 13:41 sun Allergy Swelling Uncoded 09/10/15 11:35 Home Medications Medication Instructions Recorded Confirmed Last Taken Type Ferrous Sulfate [Feosol 325 MG tab] 325 mg PO BID #60 tablet 09/03/15 10/28/18 10/27/18 Rx Vit Calc,Iron,Folic 1 each PO DAILY #30 tablet 09/03/15 10/28/18 10/27/18 Rx [ Vitamins] Active Meds: Active Medications Acetaminophen (Tylenol) 650 mg PO Q4H PRN PRN Reason: Pain MILD(1-3)/Fever >100.5/CHAKRABORTY Last Admin: 10/28/18 08:24 Dose: 650 mg Documented by: Albuterol (Proventil) 2.5 mg IH Q6HRT [facility] Last Admin: 10/28/18 14:31 Dose: Not Given Documented by: Docusate Sodium (Colace) 100 mg PO Q12H PRN PRN Reason: Constipation Enoxaparin Sodium (Lovenox) 135 mg SUB-Q BID [facility] [place] Last Admin: 10/28/18 14:36 Dose: 135 mg Documented by: Ferrous Sulfate (Feosol) 325 mg PO BID [facility] [place] Last Admin: 10/28/18 12:11 Dose: 325 mg Documented by: Ceftriaxone Sodium (Rocephin/Ns 1 Gm/50 Ml) 1 gm in 50 mls @ 100 mls/hr IV Q24HR [facility]; Protocol Last Admin: 10/28/18 12:10 Dose: 100 mls/hr Documented by: Azithromycin 500 mg/ Sodium (Chloride) 250 mls @ 250 mls/hr IV Q24HR [facility]; Protocol Last Admin: 10/28/18 13:35 Dose: 250 mls/hr Documented by: Sodium Chloride (Nacl 0.9% 1000 Ml) 1,000 mls @ 100 mls/hr IV DIRECT [facility] [place] Last Admin: 10/28/18 12:09 Dose: 100 mls/hr Documented by: Ipratropium [place] (Atrovent) 0.5 mg IH Q4H PRN PRN Reason: Wheezing Last Admin: 10/28/18 14:30 Dose: 0.5 mg Documented by: Methylprednisolone Sodium Succinate (Solu-Medrol) 40 mg IV Q8HR [facility] Last Admin: 10/28/18 14:41 Dose: 40 mg Documented by: Multivitamins/Iron/Calcium ( Vitamin) 1 each PO DAILY [facility] Last Admin: 10/28/18 12:11 Dose: 1 each Documented by: Ondansetron HCl (Zofran) 4 mg IV Q4H PRN PRN Reason: Nausea And Vomiting Sodium Chloride (Sodium Chloride Flush Syringe 10 Ml) 10 ml IV BID [facility] Last Admin: 10/28/18 12:12 Dose: 10 ml Documented by: Sodium Chloride (Sodium Chloride Flush Syringe 10 Ml) 10 ml IV PRN PRN PRN Reason: LINE FLUSH Physical Examination Vital signs: Vital Signs Pulse Resp Pulse Ox 129 H 21 97 10/27/18 13:49 10/27/18 13:49 10/27/18 13:49 General appearance: no acute distress, alert, other (morbidly obese) ENT: oropharynx moist Neck: supple Ascultation: Bilateral: clear, diminished breath sounds, wheezes (faint ( just had neb [place])) Cardiovascular: other (tachycardic) Gastrointestinal: normoactive bowel sounds, non-distended, other (IUP) Integumentary: normal Musculoskeletal: no deformities, other (Jennifer's negative) normal mental status, non-focal exam, pupils equal and round, CN II-XII normal, motor strength normal and mood appropriate Results - Laboratory Findings CBC and BMP: 10/29/18 09:43 10/29/18 09:43 PT/INR, D-dimer PT 13.2 Sec. (12.2-14.9) 10/27/18 14:37 INR 0.95 (0.87-1.13) 10/27/18 14:37 612.61 ng/mlDDU (0-234) H 10/27/18 14:37 Abnormal lab findings: Abnormal Labs 10/27/18 10/27/18 10/27/18 14:37 14:37 14:37 Hgb 9.0 L Hct 28.9 L MCV 71 L MCH 22 L RDW 20.7 H [place] % (Auto) 12.3 H Lymph # Seg Neutrophils % D-Dimer 612.61 H Sodium 136 L Potassium 3.5 L Chloride Carbon Dioxide 19 L BUN 4 L Creatinine 0.4 L Glucose Lactic Acid Alkaline Phosphatase Total Creatine Kinase Albumin Urine WBC (Auto) 10/27/18 10/27/18 10/27/18 14:37 15:46 17:49 Hgb Hct MCV MCH RDW [place] % (Auto) Lymph # Seg Neutrophils % D-Dimer Sodium Potassium Chloride Carbon Dioxide BUN Creatinine Glucose Lactic Acid Alkaline Phosphatase 189 H Total Creatine Kinase 349 H Albumin 3.6 L Urine WBC (Auto) 15.0 H 10/27/18 10/27/18 10/27/18 19:20 20:51 21:30 Hgb Hct MCV MCH RDW [place] % (Auto) Lymph # Seg Neutrophils % D-Dimer Sodium Potassium Chloride Carbon Dioxide BUN Creatinine Glucose Lactic Acid 4.10 H* 4.10 H* 4.10 H* Alkaline Phosphatase Total Creatine Kinase Albumin Urine WBC (Auto) 10/28/18 10/28/18 10/28/18 06:06 06:06 06:06 Hgb 8.5 L Hct 27.5 L MCV 70 L MCH 22 L RDW 20.0 H [place] % (Auto) 9.2 H Lymph # 1.1 L Seg Neutrophils % 75.0 H D-Dimer Sodium Potassium 3.5 L Chloride 107.2 H Carbon Dioxide 18 L BUN 3 L Creatinine 0.4 L Glucose 133 H Lactic Acid 2.30 H* Alkaline Phosphatase Total Creatine Kinase Albumin Urine WBC (Auto) 10/28/18 08:09 Hgb Hct MCV MCH RDW [place] % (Auto) Lymph # Seg Neutrophils % D-Dimer Sodium Potassium Chloride Carbon Dioxide BUN Creatinine Glucose Lactic Acid 2.30 H* Alkaline Phosphatase Total Creatine Kinase Albumin Urine WBC (Auto) - Diagnostic Findings CT scan - chest: report reviewed, image reviewed Assessment and Plan Clinical impression: Asthmatic bronchitis. No PMH of asthma, but strong family Hx ( children's, siblings) No gross PE on Chest CTA- see report, comments Questionable pneumonia UTI Lactic acidemia High D dimer- IUP,UTI, low probability Weels for both PE and DVT Recommendations Agree with ABX UC Gentle fluids Oxygen support for O2 sat < 92% Albuterol 2.5 mg nebs Q 4-6 HRS,monitor acidemia/lactate If OK with OBGYN Solumedrol 40-60 mg IV q 8 hrs heparin or LMWH per OB- see event note Will order bilat lower extremities venous US, out of an abundance of caution. If negative together with Q scan, no indication for anticoagulation Discussed with patient in detail.All questions answered.
--- NOTE | 2018-10-28 19:28 | Nuclear Medicine Report ---
PROCEDURE: Nuclear medicine perfusion lung scan. TECHNIQUE: Perfusion imaging was done in multiple projections using 2.5 mCi of technetium 99m MAA. HISTORY: evaluate for pulmonary embolism, 33 weeks COMPARISONS: None. FINDINGS: There is only mild inhomogeneity of perfusion bilaterally. There are no significant perfusion defects identified. The scan carries a very low probability of pulmonary embolism. IMPRESSION: Very low probability of pulmonary embolism. This document is electronically signed by Andrew Julio MD., Oct 28 2018 07:26:15 PM ET
--- NOTE | 2018-10-28 20:22 | XRay Report ---
PROCEDURE: XR CHEST 1V AP TECHNIQUE: Chest radiograph single view. HISTORY: EVAL FOR PE,SOB COMPARISONS: None . FINDINGS: Heart: Normal. Mediastinum/Vessels: Normal. Lungs/Pleural space: Lungs are expanded. There are no infiltrates, effusions or pneumothoraces.. Bony thorax: No acute osseous abnormality. Life support devices: None. IMPRESSION: No acute cardiopulmonary abnormality. This document is electronically signed by Wade Baker MD., Oct 28 2018 08:20:45 PM ET
--- NOTE | 2018-10-28 20:55 | Event Note ---
Reviewed old records. Patient has had 3 visits this . Had discussion with patient concerning limited care and no visits for 2 months. She states she had transportation problems. Discussed with patient due to tachycardia, recommend urine drug screen. Patient acknowledges understanding.
--- NOTE | 2018-10-28 21:31 | Event Note ---
Date: 10/28/18 VQ scan negative for PE Noted pulmonary recommendation will stop therapeutic dose of lovenox and change to DVT Px only
[2018-10-28 21:33] LABS: Amphetamine Screen,Urine PRESUMPTIVE NEGATIVE; Benzodiazepines Screen,Urine PRESUMPTIVE NEGATIVE; Cannabinoid Screen,Urine PRESUMPTIVE NEGATIVE; Cocaine Screen,Urine PRESUMPTIVE NEGATIVE; Methadone Screen,Urine PRESUMPTIVE NEGATIVE; Opiate Screen,Urine PRESUMPTIVE NEGATIVE
[2018-10-28] MEDS: LOVENOX SUB-Q SCH (23:16)
--- NOTE | 2018-10-29 09:05 | Vascular Lab Report ---
PROCEDURE: VL VENOUS DUPLEX LE BILAT TECHNIQUE: Grayscale, color and spectral Doppler ultrasound evaluation of the deep veins in both low er extremities for thrombosis with compression and augmentation performed HISTORY: evaluate for deep vein thrombosis COMPARISONS: None FINDINGS: The deep veins in the right lower extremity demonstrate normal compression, color Doppler appearance and spectral Doppler waveforms. Normal respiratory variation and response to augmentation (where perf ormed.) The deep veins in the left lower extremity demonstrate normal compression, color Doppler appearance a nd spectral Doppler waveforms. Normal respiratory variation and response to augmentation (where perfo rmed.) IMPRESSION: No sonographic evidence of DVT in the imaged portions of the right and left lower extremities. This document is electronically signed by Andrew Ponce MD., Oct 29 2018 09:02:35 AM ET
[2018-10-29 10:16] LABS: Hematocrit 27.3 % (30.3-42.9); Hemoglobin 8.7 gm/dl (10.1-14.3)
[2018-10-29 10:34] LABS: BUN/Creatinine Ratio 5; Blood Urea Nitrogen 2 mg/dL (7-17); Calcium 8.6 mg/dL (8.4-10.2); Hemolysis Index 9
[2018-10-29] MEDS: ROCEPHIN/NS 1 GM/50 ML 1 GM/50 ML BAG IV SCH (10:47)
[2018-10-29] MEDS: PRENATAL VITAMIN PO SCH (10:47)
[2018-10-29] MEDS: FEOSOL PO SCH ×2 (10:47→21:32)
[2018-10-29] MEDS: PROVENTIL IH SCH ×3 (11:02→19:55)
--- NOTE | 2018-10-29 11:09 | Progress Note ---
Assessment and Plan Clinical impression: Asthmatic bronchitis. No PMH of asthma, but strong family Hx ( children's, siblings) No gross PE , DVT on Chest CTA, VQ scan or Doppler- see reports Questionable pneumonia UTI Lactic acidemia. VASHTI therapy? High D dimer- IUP,UTI Recommendations Complete ABX UC Gentle fluids Oxygen support for O2 sat < 92% Albuterol 2.5 mg nebs Q 4-6 HRS,monitor acidemia/lactate Start on prednisone 30 mg today with 5 days taper for wheezing DVT prophylaxis Needs to be followed outpatient for asthma at pulmonary office Discussed with patient in detail.All questions answered. Subjective Date of service: 10/29/18 Principal diagnosis: asthmatic bronchitis,IUP Interval history: No events overnight. Still some cough and no active expectoration. No fever. No chest pain or wheezing Objective Vital Signs - 12hr 10/28/18 10/28/18 10/28/18 23:10 23:15 23:20 Temperature Pulse Rate 121 H 120 H 112 H Respiratory Rate Blood Pressure O2 Sat by Pulse 97 97 96 Oximetry 10/28/18 10/28/18 10/28/18 23:25 23:30 23:31 Temperature Pulse Rate 114 H 117 H 118 H Respiratory Rate Blood Pressure 126/69 O2 Sat by Pulse 97 96 Oximetry 10/28/18 10/28/18 10/28/18 23:35 23:40 23:45 Temperature Pulse Rate 116 H 111 H 105 H Respiratory Rate Blood Pressure O2 Sat by Pulse 97 97 97 Oximetry 10/28/18 10/28/18 10/29/18 23:50 23:55 00:00 Temperature 97.5 F L Pulse Rate 110 H 128 H 113 H Respiratory 20 Rate Blood Pressure O2 Sat by Pulse 96 98 95 Oximetry 10/29/18 10/29/18 10/29/18 00:01 00:04 00:05 Temperature Pulse Rate 112 H 112 H 119 H Respiratory Rate Blood Pressure 106/58 O2 Sat by Pulse 94 96 Oximetry 10/29/18 10/29/18 10/29/18 00:23 00:25 00:28 Temperature Pulse Rate 112 H 111 H 103 H Respiratory Rate Blood Pressure O2 Sat by Pulse 96 93 95 Oximetry 10/29/18 10/29/18 10/29/18 00:31 00:32 00:33 Temperature Pulse Rate 103 H 104 H 103 H Respiratory Rate Blood Pressure 111/53 O2 Sat by Pulse 94 96 Oximetry 10/29/18 10/29/18 10/29/18 00:37 00:38 00:43 Temperature Pulse Rate 107 H 109 H 100 H Respiratory Rate Blood Pressure O2 Sat by Pulse 94 95 99 Oximetry 10/29/18 10/29/18 10/29/18 00:48 00:53 00:58 Temperature Pulse Rate 96 H 102 H 100 H Respiratory Rate Blood Pressure O2 Sat by Pulse 99 99 99 Oximetry 10/29/18 10/29/18 10/29/18 01:03 01:04 01:08 Temperature Pulse Rate 99 H 100 H 105 H Respiratory Rate Blood Pressure 119/56 O2 Sat by Pulse 98 98 Oximetry 10/29/18 10/29/18 10/29/18 01:13 01:18 01:23 Temperature Pulse Rate 105 H 106 H 100 H Respiratory Rate Blood Pressure O2 Sat by Pulse 98 98 98 Oximetry 10/29/18 10/29/18 10/29/18 01:28 01:32 01:33 Temperature Pulse Rate 102 H 109 H 105 H Respiratory Rate Blood Pressure 99/57 O2 Sat by Pulse 98 98 Oximetry 10/29/18 10/29/18 10/29/18 01:38 01:43 01:48 Temperature Pulse Rate 103 H 99 H 99 H Respiratory Rate Blood Pressure O2 Sat by Pulse 98 98 99 Oximetry 10/29/18 10/29/18 10/29/18 01:53 01:58 02:02 Temperature Pulse Rate 104 H 104 H 110 H Respiratory Rate Blood Pressure 119/65 O2 Sat by Pulse 98 99 Oximetry 10/29/18 10/29/18 10/29/18 02:03 02:07 02:08 Temperature Pulse Rate 106 H 110 H 105 H Respiratory Rate Blood Pressure O2 Sat by Pulse 96 94 95 Oximetry 10/29/18 10/29/18 10/29/18 02:23 02:28 02:31 Temperature Pulse Rate 112 H 109 H 109 H Respiratory Rate Blood Pressure O2 Sat by Pulse 93 91 94 Oximetry 10/29/18 10/29/18 10/29/18 02:33 02:34 02:38 Temperature Pulse Rate 111 H 105 H 106 H Respiratory Rate Blood Pressure 104/52 O2 Sat by Pulse 94 94 Oximetry 10/29/18 10/29/18 10/29/18 02:43 02:48 02:53 Temperature Pulse Rate 105 H 106 H 108 H Respiratory Rate Blood Pressure O2 Sat by Pulse 93 93 93 Oximetry 10/29/18 10/29/18 10/29/18 02:58 03:03 03:08 Temperature Pulse Rate 109 H 104 H 103 H Respiratory Rate Blood Pressure 99/50 O2 Sat by Pulse 93 94 94 Oximetry 10/29/18 10/29/18 10/29/18 03:13 03:18 03:23 Temperature Pulse Rate 106 H 104 H 106 H Respiratory Rate Blood Pressure O2 Sat by Pulse 94 93 93 Oximetry 10/29/18 10/29/18 10/29/18 03:28 03:32 03:33 Temperature Pulse Rate 106 H 108 H 106 H Respiratory Rate Blood Pressure 98/54 O2 Sat by Pulse 93 77 L 94 Oximetry 10/29/18 10/29/18 10/29/18 03:38 03:43 03:45 Temperature Pulse Rate 107 H 106 H 106 H Respiratory Rate Blood Pressure O2 Sat by Pulse 95 95 93 Oximetry 10/29/18 10/29/18 10/29/18 03:48 03:53 03:55 Temperature Pulse Rate 101 H 105 H 110 H Respiratory Rate Blood Pressure O2 Sat by Pulse 94 94 94 Oximetry 10/29/18 10/29/18 10/29/18 03:58 04:00 04:02 Temperature Pulse Rate 104 H 102 H 108 H Respiratory Rate Blood Pressure 99/50 O2 Sat by Pulse 96 94 Oximetry 10/29/18 10/29/18 10/29/18 04:03 04:08 04:09 Temperature Pulse Rate 110 H 108 H 107 H Respiratory Rate Blood Pressure O2 Sat by Pulse 93 95 94 Oximetry 10/29/18 10/29/18 10/29/18 04:13 04:15 04:18 Temperature 98.3 F Pulse Rate 109 H 103 H Respiratory 18 Rate Blood Pressure O2 Sat by Pulse 96 99 Oximetry 10/29/18 10/29/18 10/29/18 04:23 04:28 04:32 Temperature Pulse Rate 100 H 103 H 103 H Respiratory Rate Blood Pressure 101/53 O2 Sat by Pulse 98 98 Oximetry 10/29/18 10/29/18 10/29/18 04:33 04:38 04:43 Temperature Pulse Rate 102 H 108 H 109 H Respiratory Rate Blood Pressure O2 Sat by Pulse 98 98 98 Oximetry 10/29/18 10/29/18 10/29/18 04:48 04:53 04:58 Temperature Pulse Rate 109 H 104 H 107 H Respiratory Rate Blood Pressure O2 Sat by Pulse 98 98 98 Oximetry 10/29/18 10/29/18 10/29/18 05:03 05:08 05:13 Temperature Pulse Rate 109 H 107 H 111 H Respiratory Rate Blood Pressure O2 Sat by Pulse 98 97 98 Oximetry 10/29/18 10/29/18 10/29/18 05:18 05:21 05:23 Temperature Pulse Rate 105 H 107 H 91 H Respiratory Rate Blood Pressure O2 Sat by Pulse 97 94 95 Oximetry 10/29/18 10/29/18 10/29/18 05:27 05:29 05:34 Temperature Pulse Rate 103 H 106 H 108 H Respiratory Rate Blood Pressure O2 Sat by Pulse 94 98 97 Oximetry 10/29/18 10/29/18 10/29/18 05:39 05:44 06:05 Temperature Pulse Rate 110 H 111 H 117 H Respiratory Rate Blood Pressure 105/57 O2 Sat by Pulse 96 97 98 Oximetry 10/29/18 10/29/18 10/29/18 06:06 06:10 06:15 Temperature Pulse Rate 118 H 113 H 105 H Respiratory Rate Blood Pressure O2 Sat by Pulse 93 95 96 Oximetry 10/29/18 10/29/18 10/29/18 06:20 06:24 06:25 Temperature Pulse Rate 107 H 104 H 105 H Respiratory Rate Blood Pressure O2 Sat by Pulse 95 94 95 Oximetry 10/29/18 10/29/18 10/29/18 06:30 06:32 06:35 Temperature Pulse Rate 106 H 104 H 108 H Respiratory Rate Blood Pressure 96/55 O2 Sat by Pulse 95 94 95 Oximetry 10/29/18 10/29/18 10/29/18 06:40 06:44 06:45 Temperature Pulse Rate 108 H 113 H 107 H Respiratory Rate Blood Pressure O2 Sat by Pulse 95 94 96 Oximetry 10/29/18 10/29/18 10/29/18 06:50 06:55 06:57 Temperature Pulse Rate 115 H 112 H 104 H Respiratory Rate Blood Pressure O2 Sat by Pulse 96 94 94 Oximetry 10/29/18 10/29/18 10/29/18 07:00 07:02 07:03 Temperature Pulse Rate 106 H 103 H 105 H Respiratory Rate Blood Pressure 121/64 O2 Sat by Pulse 96 94 Oximetry 10/29/18 10/29/18 10/29/18 07:05 07:10 07:15 Temperature Pulse Rate 103 H 105 H 105 H Respiratory Rate Blood Pressure O2 Sat by Pulse 94 95 95 Oximetry 10/29/18 10/29/18 10/29/18 07:20 07:25 07:27 Temperature Pulse Rate 105 H 105 H 117 H Respiratory Rate Blood Pressure O2 Sat by Pulse 93 93 92 Oximetry 10/29/18 10/29/18 10/29/18 07:30 07:33 07:35 Temperature Pulse Rate 103 H 103 H 108 H Respiratory Rate Blood Pressure O2 Sat by Pulse 95 94 95 Oximetry 10/29/18 10/29/18 10/29/18 07:38 07:40 07:43 Temperature Pulse Rate 108 H 111 H 111 H Respiratory Rate Blood Pressure O2 Sat by Pulse 94 94 94 Oximetry 10/29/18 10/29/18 10/29/18 07:45 07:50 07:54 Temperature Pulse Rate 103 H 109 H 110 H Respiratory Rate Blood Pressure O2 Sat by Pulse 95 95 94 Oximetry 10/29/18 10/29/18 10/29/18 07:55 08:00 08:02 Temperature Pulse Rate 111 H 111 H 122 H Respiratory Rate Blood Pressure O2 Sat by Pulse 95 95 94 Oximetry 10/29/18 10/29/18 10/29/18 08:05 08:22 10:06 Temperature Pulse Rate 105 H 118 H 115 H Respiratory Rate Blood Pressure 133/68 O2 Sat by Pulse 96 92 Oximetry 10/29/18 10/29/18 10/29/18 10:07 10:11 10:13 Temperature Pulse Rate 113 H 111 H 107 H Respiratory Rate Blood Pressure 101/53 O2 Sat by Pulse 95 94 Oximetry 10/29/18 10/29/18 10/29/18 10:16 10:18 10:21 Temperature Pulse Rate 111 H 108 H 112 H Respiratory Rate Blood Pressure O2 Sat by Pulse 96 94 94 Oximetry 10/29/18 10/29/18 10/29/18 10:26 10:31 10:36 Temperature Pulse Rate 112 H 114 H 113 H Respiratory Rate Blood Pressure O2 Sat by Pulse 95 95 95 Oximetry 10/29/18 10/29/18 10/29/18 10:41 10:42 10:46 Temperature Pulse Rate 115 H 120 H 112 H Respiratory Rate Blood Pressure O2 Sat by Pulse 95 94 96 Oximetry 10/29/18 10/29/18 10:48 10:59 Temperature Pulse Rate 120 H 114 H Respiratory Rate Blood Pressure O2 Sat by Pulse 94 97 Oximetry Constitutional: no acute distress, alert, other (morbidly obese) ENT: oropharynx moist Neck: supple Ascultation: Bilateral: clear, diminished breath sounds, wheezes (faint ( just had neb [place])) Cardiovascular: other (tachycardic) Gastrointestinal: normoactive bowel sounds, non-distended, other (IUP) Integumentary: normal Neurologic: normal mental status, non-focal exam, pupils equal and round, CN II- XII normal, motor strength normal and Psychiatric: mood appropriate CBC and BMP: 10/29/18 09:43 10/29/18 09:43 ABG, PT/INR, D-dimer: PT/INR, D-dimer PT 13.2 Sec. (12.2-14.9) 10/27/18 14:37 INR 0.95 (0.87-1.13) 10/27/18 14:37 612.61 ng/mlDDU (0-234) H 10/27/18 14:37 Abnormal lab findings: Abnormal Labs 10/27/18 10/27/18 10/27/18 14:37 14:37 14:37 Hgb 9.0 L Hct 28.9 L MCV 71 L MCH 22 L RDW 20.7 H [place] % (Auto) 12.3 H Lymph # Seg Neutrophils % D-Dimer 612.61 H Sodium 136 L Potassium 3.5 L Chloride Carbon Dioxide 19 L BUN 4 L Creatinine 0.4 L Glucose Lactic Acid Alkaline Phosphatase Total Creatine Kinase Albumin Urine WBC (Auto) 10/27/18 10/27/18 10/27/18 14:37 15:46 17:49 Hgb Hct MCV MCH RDW [place] % (Auto) Lymph # Seg Neutrophils % D-Dimer Sodium Potassium Chloride Carbon Dioxide BUN Creatinine Glucose Lactic Acid Alkaline Phosphatase 189 H Total Creatine Kinase 349 H Albumin 3.6 L Urine WBC (Auto) 15.0 H 10/27/18 10/27/18 10/27/18 19:20 20:51 21:30 Hgb Hct MCV MCH RDW [place] % (Auto) Lymph # Seg Neutrophils % D-Dimer Sodium Potassium Chloride Carbon Dioxide BUN Creatinine Glucose Lactic Acid 4.10 H* 4.10 H* 4.10 H* Alkaline Phosphatase Total Creatine Kinase Albumin Urine WBC (Auto) 10/28/18 10/28/18 10/28/18 06:06 06:06 06:06 Hgb 8.5 L Hct 27.5 L MCV 70 L MCH 22 L RDW 20.0 H [place] % (Auto) 9.2 H Lymph # 1.1 L Seg Neutrophils % 75.0 H D-Dimer Sodium Potassium 3.5 L Chloride 107.2 H Carbon Dioxide 18 L BUN 3 L Creatinine 0.4 L Glucose 133 H Lactic Acid 2.30 H* Alkaline Phosphatase Total Creatine Kinase Albumin Urine WBC (Auto) 10/28/18 10/29/18 10/29/18 08:09 09:43 09:43 Hgb 8.7 L Hct 27.3 L MCV MCH RDW [place] % (Auto) Lymph # Seg Neutrophils % D-Dimer Sodium Potassium 3.2 L Chloride Carbon Dioxide 20 L BUN 2 L Creatinine 0.4 L Glucose 108 H Lactic Acid 2.30 H* Alkaline Phosphatase Total Creatine Kinase Albumin Urine WBC (Auto)
[2018-10-29] MEDS: ZITHROMAX 500 MG in NACL 0.9% 250ML 250 ML IV SCH (11:25)
--- NOTE | 2018-10-29 12:32 | Progress Note ---
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 PE, suspect it on admission but now ruled out - CTA non-confirmatory but VQ scan results negative, - will stop therapeutic dose of Lovenox Acute bronchospasm/asthmatic bronchitis - Could be from pneumonia -Changed IV to by mouth steroid and continue scheduled breathing treatments for now along with IV antibiotics UTI, cont abx Bacteremia, one out of two cx growing gm +ve cocci in cluster - possible contamination - will repeat cx hypokalemia, replete and monitor DVT prophylaxis, Lovenox Will need outpatient follow-up with hemodialysis technician will follow Subjective Date of service: 10/29/18 Principal diagnosis: asthmatic bronchitis,IUP Interval history: Patient seen and examined. Medical records and medication list reviewed. No acute event overnight noted by the RN. Breathing much improved. Patient is tolerating diet. Discussed plan of care at bedside with patient. Objective - Exam Narrative Exam: General appearance: Present: no acute distress, well-nourished - EENT Eyes: PERRL, EOM intact ENT: hearing intact, clear oral mucosa Ears: bilateral: normal - Neck Neck: supple, normal ROM - Respiratory Respiratory: bilateral: very few wheezing - Cardiovascular Heart Sounds: Present: S1 & S2. Absent: gallop, rub Extremities: pulses intact, No edema, normal color, Full ROM - Gastrointestinal General gastrointestinal: Present: soft, non-tender, non-distended, normal bowel sounds - Integumentary Integumentary: clear, warm, dry - Musculoskeletal Musculoskeletal: 1, strength equal bilaterally - Neurologic Neurologic: moves all extremities - Psychiatric Psychiatric: memory intact, appropriate mood/affect, intact judgment & insight - Constitutional Vitals: Vital Signs - 12hr 10/29/18 10/29/18 10/29/18 00:31 00:32 00:33 Temperature Pulse Rate 103 H 104 H 103 H Pulse Rate [ Throughout] Respiratory Rate Respiratory Rate [ Throughout] Blood Pressure 111/53 O2 Sat by Pulse 94 96 Oximetry 10/29/18 10/29/18 10/29/18 00:37 00:38 00:43 Temperature Pulse Rate 107 H 109 H 100 H Pulse Rate [ Throughout] Respiratory Rate Respiratory Rate [ Throughout] Blood Pressure O2 Sat by Pulse 94 95 99 Oximetry 10/29/18 10/29/18 10/29/18 00:48 00:53 00:58 Temperature Pulse Rate 96 H 102 H 100 H Pulse Rate [ Throughout] Respiratory Rate Respiratory Rate [ Throughout] Blood Pressure O2 Sat by Pulse 99 99 99 Oximetry 10/29/18 10/29/18 10/29/18 01:03 01:04 01:08 Temperature Pulse Rate 99 H 100 H 105 H Pulse Rate [ Throughout] Respiratory Rate Respiratory Rate [ Throughout] Blood Pressure 119/56 O2 Sat by Pulse 98 98 Oximetry 10/29/18 10/29/18 10/29/18 01:13 01:18 01:23 Temperature Pulse Rate 105 H 106 H 100 H Pulse Rate [ Throughout] Respiratory Rate Respiratory Rate [ Throughout] Blood Pressure O2 Sat by Pulse 98 98 98 Oximetry 10/29/18 10/29/18 10/29/18 01:28 01:32 01:33 Temperature Pulse Rate 102 H 109 H 105 H Pulse Rate [ Throughout] Respiratory Rate Respiratory Rate [ Throughout] Blood Pressure 99/57 O2 Sat by Pulse 98 98 Oximetry 10/29/18 10/29/18 10/29/18 01:38 01:43 01:48 Temperature Pulse Rate 103 H 99 H 99 H Pulse Rate [ Throughout] Respiratory Rate Respiratory Rate [ Throughout] Blood Pressure O2 Sat by Pulse 98 98 99 Oximetry 10/29/18 10/29/18 10/29/18 01:53 01:58 02:02 Temperature Pulse Rate 104 H 104 H 110 H Pulse Rate [ Throughout] Respiratory Rate Respiratory Rate [ Throughout] Blood Pressure 119/65 O2 Sat by Pulse 98 99 Oximetry 10/29/18 10/29/18 10/29/18 02:03 02:07 02:08 Temperature Pulse Rate 106 H 110 H 105 H Pulse Rate [ Throughout] Respiratory Rate Respiratory Rate [ Throughout] Blood Pressure O2 Sat by Pulse 96 94 95 Oximetry 10/29/18 10/29/18 10/29/18 02:23 02:28 02:31 Temperature Pulse Rate 112 H 109 H 109 H Pulse Rate [ Throughout] Respiratory Rate Respiratory Rate [ Throughout] Blood Pressure O2 Sat by Pulse 93 91 94 Oximetry 10/29/18 10/29/18 10/29/18 02:33 02:34 02:38 Temperature Pulse Rate 111 H 105 H 106 H Pulse Rate [ Throughout] Respiratory Rate Respiratory Rate [ Throughout] Blood Pressure 104/52 O2 Sat by Pulse 94 94 Oximetry 10/29/18 10/29/18 10/29/18 02:43 02:48 02:53 Temperature Pulse Rate 105 H 106 H 108 H Pulse Rate [ Throughout] Respiratory Rate Respiratory Rate [ Throughout] Blood Pressure O2 Sat by Pulse 93 93 93 Oximetry 10/29/18 10/29/18 10/29/18 02:58 03:03 03:08 Temperature Pulse Rate 109 H 104 H 103 H Pulse Rate [ Throughout] Respiratory Rate Respiratory Rate [ Throughout] Blood Pressure 99/50 O2 Sat by Pulse 93 94 94 Oximetry 10/29/18 10/29/18 10/29/18 03:13 03:18 03:23 Temperature Pulse Rate 106 H 104 H 106 H Pulse Rate [ Throughout] Respiratory Rate Respiratory Rate [ Throughout] Blood Pressure O2 Sat by Pulse 94 93 93 Oximetry 10/29/18 10/29/18 10/29/18 03:28 03:32 03:33 Temperature Pulse Rate 106 H 108 H 106 H Pulse Rate [ Throughout] Respiratory Rate Respiratory Rate [ Throughout] Blood Pressure 98/54 O2 Sat by Pulse 93 77 L 94 Oximetry 10/29/18 10/29/18 10/29/18 03:38 03:43 03:45 Temperature Pulse Rate 107 H 106 H 106 H Pulse Rate [ Throughout] Respiratory Rate Respiratory Rate [ Throughout] Blood Pressure O2 Sat by Pulse 95 95 93 Oximetry 10/29/18 10/29/18 10/29/18 03:48 03:53 03:55 Temperature Pulse Rate 101 H 105 H 110 H Pulse Rate [ Throughout] Respiratory Rate Respiratory Rate [ Throughout] Blood Pressure O2 Sat by Pulse 94 94 94 Oximetry 10/29/18 10/29/18 10/29/18 03:58 04:00 04:02 Temperature Pulse Rate 104 H 102 H 108 H Pulse Rate [ Throughout] Respiratory Rate Respiratory Rate [ Throughout] Blood Pressure 99/50 O2 Sat by Pulse 96 94 Oximetry 10/29/18 10/29/18 10/29/18 04:03 04:08 04:09 Temperature Pulse Rate 110 H 108 H 107 H Pulse Rate [ Throughout] Respiratory Rate Respiratory Rate [ Throughout] Blood Pressure O2 Sat by Pulse 93 95 94 Oximetry 10/29/18 10/29/18 10/29/18 04:13 04:15 04:18 Temperature 98.3 F Pulse Rate 109 H 103 H Pulse Rate [ Throughout] Respiratory 18 Rate Respiratory Rate [ Throughout] Blood Pressure O2 Sat by Pulse 96 99 Oximetry 10/29/18 10/29/18 10/29/18 04:23 04:28 04:32 Temperature Pulse Rate 100 H 103 H 103 H Pulse Rate [ Throughout] Respiratory Rate Respiratory Rate [ Throughout] Blood Pressure 101/53 O2 Sat by Pulse 98 98 Oximetry 10/29/18 10/29/18 10/29/18 04:33 04:38 04:43 Temperature Pulse Rate 102 H 108 H 109 H Pulse Rate [ Throughout] Respiratory Rate Respiratory Rate [ Throughout] Blood Pressure O2 Sat by Pulse 98 98 98 Oximetry 10/29/18 10/29/18 10/29/18 04:48 04:53 04:58 Temperature Pulse Rate 109 H 104 H 107 H Pulse Rate [ Throughout] Respiratory Rate Respiratory Rate [ Throughout] Blood Pressure O2 Sat by Pulse 98 98 98 Oximetry 10/29/18 10/29/18 10/29/18 05:03 05:08 05:13 Temperature Pulse Rate 109 H 107 H 111 H Pulse Rate [ Throughout] Respiratory Rate Respiratory Rate [ Throughout] Blood Pressure O2 Sat by Pulse 98 97 98 Oximetry 10/29/18 10/29/18 10/29/18 05:18 05:21 05:23 Temperature Pulse Rate 105 H 107 H 91 H Pulse Rate [ Throughout] Respiratory Rate Respiratory Rate [ Throughout] Blood Pressure O2 Sat by Pulse 97 94 95 Oximetry 10/29/18 10/29/18 10/29/18 05:27 05:29 05:34 Temperature Pulse Rate 103 H 106 H 108 H Pulse Rate [ Throughout] Respiratory Rate Respiratory Rate [ Throughout] Blood Pressure O2 Sat by Pulse 94 98 97 Oximetry 10/29/18 10/29/18 10/29/18 05:39 05:44 06:05 Temperature Pulse Rate 110 H 111 H 117 H Pulse Rate [ Throughout] Respiratory Rate Respiratory Rate [ Throughout] Blood Pressure 105/57 O2 Sat by Pulse 96 97 98 Oximetry 10/29/18 10/29/18 10/29/18 06:06 06:10 06:15 Temperature Pulse Rate 118 H 113 H 105 H Pulse Rate [ Throughout] Respiratory Rate Respiratory Rate [ Throughout] Blood Pressure O2 Sat by Pulse 93 95 96 Oximetry 10/29/18 10/29/18 10/29/18 06:20 06:24 06:25 Temperature Pulse Rate 107 H 104 H 105 H Pulse Rate [ Throughout] Respiratory Rate Respiratory Rate [ Throughout] Blood Pressure O2 Sat by Pulse 95 94 95 Oximetry 10/29/18 10/29/18 10/29/18 06:30 06:32 06:35 Temperature Pulse Rate 106 H 104 H 108 H Pulse Rate [ Throughout] Respiratory Rate Respiratory Rate [ Throughout] Blood Pressure 96/55 O2 Sat by Pulse 95 94 95 Oximetry 10/29/18 10/29/18 10/29/18 06:40 06:44 06:45 Temperature Pulse Rate 108 H 113 H 107 H Pulse Rate [ Throughout] Respiratory Rate Respiratory Rate [ Throughout] Blood Pressure O2 Sat by Pulse 95 94 96 Oximetry 10/29/18 10/29/18 10/29/18 06:50 06:55 06:57 Temperature Pulse Rate 115 H 112 H 104 H Pulse Rate [ Throughout] Respiratory Rate Respiratory Rate [ Throughout] Blood Pressure O2 Sat by Pulse 96 94 94 Oximetry 10/29/18 10/29/18 10/29/18 07:00 07:02 07:03 Temperature Pulse Rate 106 H 103 H 105 H Pulse Rate [ Throughout] Respiratory Rate Respiratory Rate [ Throughout] Blood Pressure 121/64 O2 Sat by Pulse 96 94 Oximetry 10/29/18 10/29/18 10/29/18 07:05 07:10 07:15 Temperature Pulse Rate 103 H 105 H 105 H Pulse Rate [ Throughout] Respiratory Rate Respiratory Rate [ Throughout] Blood Pressure O2 Sat by Pulse 94 95 95 Oximetry 10/29/18 10/29/18 10/29/18 07:20 07:25 07:27 Temperature Pulse Rate 105 H 105 H 117 H Pulse Rate [ Throughout] Respiratory Rate Respiratory Rate [ Throughout] Blood Pressure O2 Sat by Pulse 93 93 92 Oximetry 10/29/18 10/29/18 10/29/18 07:30 07:33 07:35 Temperature Pulse Rate 103 H 103 H 108 H Pulse Rate [ Throughout] Respiratory Rate Respiratory Rate [ Throughout] Blood Pressure O2 Sat by Pulse 95 94 95 Oximetry 10/29/18 10/29/18 10/29/18 07:38 07:40 07:43 Temperature Pulse Rate 108 H 111 H 111 H Pulse Rate [ Throughout] Respiratory Rate Respiratory Rate [ Throughout] Blood Pressure O2 Sat by Pulse 94 94 94 Oximetry 10/29/18 10/29/18 10/29/18 07:45 07:50 07:54 Temperature Pulse Rate 103 H 109 H 110 H Pulse Rate [ Throughout] Respiratory Rate Respiratory Rate [ Throughout] Blood Pressure O2 Sat by Pulse 95 95 94 Oximetry 10/29/18 10/29/18 10/29/18 07:55 08:00 08:02 Temperature Pulse Rate 111 H 111 H 122 H Pulse Rate [ Throughout] Respiratory Rate Respiratory Rate [ Throughout] Blood Pressure O2 Sat by Pulse 95 95 94 Oximetry 10/29/18 10/29/18 10/29/18 08:05 08:22 10:06 Temperature Pulse Rate 105 H 118 H 115 H Pulse Rate [ Throughout] Respiratory Rate Respiratory Rate [ Throughout] Blood Pressure 133/68 O2 Sat by Pulse 96 92 Oximetry 10/29/18 10/29/18 10/29/18 10:07 10:11 10:13 Temperature Pulse Rate 113 H 111 H 107 H Pulse Rate [ Throughout] Respiratory Rate Respiratory Rate [ Throughout] Blood Pressure 101/53 O2 Sat by Pulse 95 94 Oximetry 10/29/18 10/29/18 10/29/18 10:16 10:18 10:21 Temperature Pulse Rate 111 H 108 H 112 H Pulse Rate [ Throughout] Respiratory Rate Respiratory Rate [ Throughout] Blood Pressure O2 Sat by Pulse 96 94 94 Oximetry 10/29/18 10/29/18 10/29/18 10:26 10:31 10:36 Temperature Pulse Rate 112 H 114 H 113 H Pulse Rate [ Throughout] Respiratory Rate Respiratory Rate [ Throughout] Blood Pressure O2 Sat by Pulse 95 95 95 Oximetry 10/29/18 10/29/18 10/29/18 10:41 10:42 10:46 Temperature Pulse Rate 115 H 120 H 112 H Pulse Rate [ Throughout] Respiratory Rate Respiratory Rate [ Throughout] Blood Pressure O2 Sat by Pulse 95 94 96 Oximetry 10/29/18 10/29/18 10/29/18 10:48 10:59 11:02 Temperature Pulse Rate 120 H 114 H Pulse Rate [ 116 H Throughout] Respiratory Rate Respiratory 17 Rate [ Throughout] Blood Pressure O2 Sat by Pulse 94 97 Oximetry 10/29/18 10/29/18 10/29/18 11:04 11:09 11:14 Temperature Pulse Rate 115 H 117 H 119 H Pulse Rate [ 116 H Throughout] Respiratory Rate Respiratory 18 Rate [ Throughout] Blood Pressure O2 Sat by Pulse 96 95 95 Oximetry 10/29/18 10/29/18 10/29/18 11:19 11:24 11:29 Temperature Pulse Rate 124 H 129 H 119 H Pulse Rate [ Throughout] Respiratory Rate Respiratory Rate [ Throughout] Blood Pressure O2 Sat by Pulse 97 99 97 Oximetry 10/29/18 10/29/18 10/29/18 11:34 11:39 11:44 Temperature Pulse Rate 116 H 121 H 118 H Pulse Rate [ Throughout] Respiratory Rate Respiratory Rate [ Throughout] Blood Pressure O2 Sat by Pulse 97 97 97 Oximetry 10/29/18 11:58 Temperature Pulse Rate 126 H Pulse Rate [ Throughout] Respiratory Rate Respiratory Rate [ Throughout] Blood Pressure 125/58 O2 Sat by Pulse Oximetry - Labs CBC & Chem 7: 10/29/18 09:43 10/29/18 09:43 Labs: Abnormal lab results 10/29/18 10/29/18 Range/Units 09:43 09:43 Hgb 8.7 L (10.1-14.3) gm/dl Hct 27.3 L (30.3-42.9) % Potassium 3.2 L (3.6-5.0) mmol/L Carbon Dioxide 20 L (22-30) mmol/L BUN 2 L (7-17) mg/dL Creatinine 0.4 L (0.7-1.2) mg/dL Glucose 108 H (65-100) mg/dL
--- NOTE | 2018-10-29 13:22 | Consultation ---
<CLIFTON WELCH - Last Filed: 10/29/18 15:11> History of Present Illness Reason for consult: other (Patient is a 28 year old , LMP, EDC 12/07/18 at 32 weeks and 6 days gestation who was admitted with SOB, cough, chest pain. The patient states she experienced dyspnea while at a cookout prior to admission .She had coughing and describes pleuritic chest pain. Cardiac enzymes have been normal. EKG reveals sinus tachycardia 120-130s. She was tachypneic 32 on admission. She reports good movement, no loss of fluid and no vaginal bleeding. The patient states the nebulizer treatments help for one hour then she returns to baseline dyspnea. She states she has received 5 respiratory treatments since admission CXR revealed lung opacities. CT scan was done and showed no PE in the proximal lungs but the distal branches were suboptimal Perfusion scan was done and showed low probability of PE. S/P Pulmonary consult. Patient is on lovenox and albuterol. S/P Medical consult- started her on treatment for pneumonia with Rocephin and Zithromax. Blood culture is pending. During [facility] consult patient reports feeling better; however , " I still short of breathe when I walk around ." Denies sxs of PreEclampsia , CTX, LOF, DFM , and chest/calf pain .) Past History Past Medical History: hypertension, hematologic disorders (anemia, positive antibody screen) Past Surgical History: section [employer] History: herpes, trichomonas (negative test of cure) - Obstetrical History : 6 Medications and Allergies Allergies Allergy/AdvReac Type Severity Reaction Status Date / Time beeswax Allergy Swelling Verified 10/27/18 13:41 sun Allergy Swelling Uncoded 09/10/15 11:35 Home Medications Medication Instructions Recorded Confirmed Last Taken Type Ferrous Sulfate [Feosol 325 MG tab] 325 mg PO BID #60 tablet 09/03/15 10/28/18 10/27/18 Rx Vit Calc,Iron,Folic 1 each PO DAILY #30 tablet 09/03/15 10/28/18 10/27/18 Rx [ Vitamins] Active Meds: Active Medications Acetaminophen (Tylenol) 650 mg PO Q4H PRN PRN Reason: Pain MILD(1-3)/Fever >100.5/CHAKRABORTY Last Admin: 10/28/18 20:33 Dose: 650 mg Documented by: Albuterol (Proventil) 2.5 mg IH Q6HRT [facility] Last Admin: 10/29/18 11:02 Dose: 2.5 mg Documented by: Docusate Sodium (Colace) 100 mg PO Q12H PRN PRN Reason: Constipation Enoxaparin Sodium (Lovenox) 40 mg SUB-Q QDAY@2200 [facility] Last Admin: 10/28/18 23:16 Dose: 40 mg Documented by: Ferrous Sulfate (Feosol) 325 mg PO BID [facility] Last Admin: 10/29/18 10:47 Dose: 325 mg Documented by: Ceftriaxone Sodium (Rocephin/Ns 1 Gm/50 Ml) 1 gm in 50 mls @ 100 mls/hr IV Q24HR [facility]; Protocol Last Admin: 10/29/18 10:47 Dose: 100 mls/hr Documented by: Azithromycin 500 mg/ Sodium (Chloride) 250 mls @ 250 mls/hr IV Q24HR [facility]; Pro tocol Last Admin: 10/29/18 11:25 Dose: 250 mls/hr Documented by: Sodium Chloride (Nacl 0.9% 1000 Ml) 1,000 mls @ 100 mls/hr IV DIRECT [facility] Last Admin: 10/28/18 12:09 Dose: 100 mls/hr Documented by: Ipratropium [place] (Atrovent) 0.5 mg IH Q4H PRN PRN Reason: Wheezing Last Admin: 10/28/18 14:30 Dose: 0.5 mg Documented by: Methylprednisolone Sodium Succinate (Solu-Medrol) 40 mg IV Q8HR [facility] Last Admin: 10/28/18 23:11 Dose: 40 mg Documented by: Multivitamins/Iron/Calcium ( Vitamin) 1 each PO DAILY [facility] Last Admin: 10/29/18 10:47 Dose: 1 each Documented by: Ondansetron HCl (Zofran) 4 mg IV Q4H PRN PRN Reason: Nausea And Vomiting Sodium Chloride (Sodium Chloride Flush Syringe 10 Ml) 10 ml IV BID [facility] Last Admin: 10/28/18 12:12 Dose: 10 ml Documented by: Sodium Chloride (Sodium Chloride Flush Syringe 10 Ml) 10 ml IV PRN PRN PRN Reason: LINE FLUSH Review of Systems Constitutional: no fever, no chills, no sweats Eyes: deferred Ears, nose, mouth and throat: deferred Cardiovascular: shortness of breath ("only when sitting up and moving around"), dyspnea on exertion, high blood pressure (history of HTN since age of 15 . Currently under no medical therapy ), no chest pain, no palpitations, no edema Respiratory: cough (non productive ), shortness of breath, dyspnea on exertion, other (denies history of asthma ) Breasts: deferred Gastrointestinal: no nausea, no vomiting, no diarrhea, no indigestion Genitourinary: genital sores (hx of HSV ), no vaginal bleeding, no vaginal discharge, no leakage of fluid, no pelvic pain, no contractions Rectal Exam: deferred Musculoskeletal: no low back pain Integumentary: no rash Neurological: no seizures, no headaches, no migraines Endocrine: recent glucocorticoid use (currently under Solumedrol therapy ) Hematologic/Lymphatic: no easy bruising, no thrombophilia (denies history ) Allergic/Immunologic: no wheezing (during today's consult ) - Vital Signs Vital signs: Vital Signs Pulse Resp Pulse Ox 129 H 21 97 10/27/18 13:49 10/27/18 13:49 10/27/18 13:49 Temp Pulse Resp BP Pulse Ox 98.3 F 122 H 18 125/58 97 10/29/18 04:15 10/29/18 13:13 10/29/18 11:14 10/29/18 11:58 10/29/18 13:13 - Physical Exam Cardiovascular: Other (maternal pulse 100's -110's) Lungs: Positive: Normal air movement Abdomen: Negative: tenderness, guarding Uterus: Positive: other (gravid). Negative: tender Extremities: Negative: tenderness (Neg kirby's ), edema Deep Tendon Reflex Grade: Normal +2 - Obstetrical FHR: category 1 (per RN ) Uterine Contraction Pattern: Absent Results Result Diagrams: 10/29/18 09:43 10/29/18 09:43 Abnormal lab results 10/29/18 10/29/18 Range/Units 09:43 09:43 Hgb 8.7 L (10.1-14.3) gm/dl Hct 27.3 L (30.3-42.9) % Potassium 3.2 L (3.6-5.0) mmol/L Carbon Dioxide 20 L (22-30) mmol/L BUN 2 L (7-17) mg/dL Creatinine 0.4 L (0.7-1.2) mg/dL Glucose 108 H (65-100) mg/dL All other labs normal. Ultrasound: report reviewed (See 10/28/18 full OB report ) Assessment and Plan Impression: IUP 32.6 weeks 10/27/18 Admission for dyspnea, SOB, and tachycradia -improved per patient Continued dyspnea - O2 sat on RA -99% - Maternal pulse of 100-110's Limited PNC History of HTN since the age of 15 y.o. Stable BP currently under no medical therapy with NO STRIPPER SOFT PLASTIC features Anemia History of C/S with successful Morbid obesity [facility] OB US from 10/28/18 33.0 weeks EGA (AUA) VTX JOS of 8.9 cm EFW 2097 grams ( reassuring ) [facility] BPP of 8/8 [facility] 10/28/18 : No sono evidence of DVT of the right/left lower extremity Blood culture pending Pulmomary team : -Asthmatic bronchitis. No PMH of asthma, but strong family Hx ( children's, siblings) -No gross PE on Chest CTA- see report, comments -Questionable pneumonia under antibiotic regimen - UTI under medical therapy - Lactic acidemia - High D dimer- IUP,UTI Internal medicine team : - VQ scan negative for PE - CTA non-confirmatory but VQ scan results negative, - Therapeutic dose of Lovenox was discontinued currently DVT prophylaxis, Lovenox Recommendations: Maternal ECHO 10/27/18 ??? report Document TSH level Continuous monitoring Blood culture pending As per medical team -Complete ABX -UC -Gentle fluids -Oxygen support for O2 sat < 92% -Albuterol 2.5 mg nebs Q 4-6 HRS,monitor acidemia/lactate -prednisone 30 mg today with 5 days taper for wheezing -DVT prophylaxis - Needs to be followed outpatient for asthma at pulmonary office <MARCO A FLORES I - Last Filed: 10/29/18 15:16> Medications and Allergies Active Meds: Active Medications Acetaminophen (Tylenol) 650 mg PO Q4H PRN PRN Reason: Pain MILD(1-3)/Fever >100.5/CHAKRABORTY Last Admin: 10/28/18 20:33 Dose: 650 mg Documented by: Albuterol (Proventil) 2.5 mg IH Q6HRT [facility] Last Admin: 10/29/18 11:02 Dose: 2.5 mg Documented by: Docusate Sodium (Colace) 100 mg PO Q12H PRN PRN Reason: Constipation Enoxaparin Sodium (Lovenox) 40 mg SUB-Q QDAY@2200 [facility] Last Admin: 10/28/18 23:16 Dose: 40 mg Documented by: Ferrous Sulfate (Feosol) 325 mg PO BID [facility] Last Admin: 10/29/18 10:47 Dose: 325 mg Documented by: Ceftriaxone Sodium (Rocephin/Ns 1 Gm/50 Ml) 1 gm in 50 mls @ 100 mls/hr IV Q24HR [facility]; Protocol Last Admin: 10/29/18 10:47 Dose: 100 mls/hr Documented by: Azithromycin 500 mg/ Sodium (Chloride) 250 mls @ 250 mls/hr IV Q24HR [facility]; Protocol Last Admin: 10/29/18 11:25 Dose: 250 mls/hr Documented by: Sodium Chloride (Nacl 0.9% 1000 Ml) 1,000 mls @ 100 mls/hr IV DIRECT [facility] Last Admin: 10/28/18 12:09 Dose: 100 mls/hr Documented by: Ipratropium [place] (Atrovent) 0.5 mg IH Q4H PRN PRN Reason: Wheezing Last Admin: 10/28/18 14:30 Dose: 0.5 mg Documented by: Methylprednisolone Sodium Succinate (Solu-Medrol) 40 mg IV Q8HR [facility] Last Admin: 10/28/18 23:11 Dose: 40 mg Documented by: Multivitamins/Iron/Calcium ( Vitamin) 1 each PO DAILY [facility] Last Admin: 10/29/18 10:47 Dose: 1 each Documented by: Ondansetron HCl (Zofran) 4 mg IV Q4H PRN PRN Reason: Nausea And Vomiting Sodium Chloride (Sodium Chloride Flush Syringe 10 Ml) 10 ml IV BID [facility] Last Admin: 10/28/18 12:12 Dose: 10 ml Documented by: Sodium Chloride (Sodium Chloride Flush Syringe 10 Ml) 10 ml IV PRN PRN PRN Reason: LINE FLUSH - Vital Signs Vital signs: Vital Signs Pulse Resp Pulse Ox 129 H 21 97 10/27/18 13:49 10/27/18 13:49 10/27/18 13:49 Temp Pulse Resp BP Pulse Ox 98.3 F 122 H 18 125/58 97 10/29/18 04:15 10/29/18 13:13 10/29/18 11:14 10/29/18 11:58 10/29/18 13:13 Results Result Diagrams: 10/29/18 09:43 10/29/18 09:43 Abnormal lab results 10/29/18 10/29/18 Range/Units 09:43 09:43 Hgb 8.7 L (10.1-14.3) gm/dl Hct 27.3 L (30.3-42.9) % Potassium 3.2 L (3.6-5.0) mmol/L Carbon Dioxide 20 L (22-30) mmol/L BUN 2 L (7-17) mg/dL Creatinine 0.4 L (0.7-1.2) mg/dL Glucose 108 H (65-100) mg/dL All other labs normal. Assessment and Plan AGREE WITH THE CURRENT FINDINGS. NO CURRENT EVIDENCE OF PULMONARY EMBOLISM. IF PATIENT' REMAINS STABLE SHE MAY BE A CANDIDATE FOR DISCHARGE AND FOLLOW-UP WITH PULMONARY AN OUTPATIENT. PROVIDE WITH ALBUTEROL AND COMPLETE PREDNISONE DIRECTED. CONTACT [facility] WITH ANY QUESTIONS. Marco A Flores MD, FACOG
--- NOTE | 2018-10-29 13:27 | Progress Note ---
Assessment and Plan - Patient Problems (1) 32 weeks gestation of Current Visit: Yes Status: Acute (2) Pneumonia Current Visit: Yes Status: Acute Plan to address problem: Patient is on rocephin and zithromax. F/U blood cultures. (3) Tachycardia Current Visit: Yes Status: Acute Plan to address problem: Spiral CT ruled out PE. Perfusion scan showed low probability of PE. Lovenox prophylactic dose was given. Subjective - Subjective Date of service: 10/29/18 Principal diagnosis: SIUP at 32 weeks gestation with pneumonia, SOB, tach r/o PE Interval history: Patient is a 28 year old , LMP, EDC 12/07/18 at 32 weeks and 6 days gestation who was admitted with SOB, cough, chest pain. Vitals signs showed tachycardia. CXR showed lung opacities. CT scan was done and showed no PE in the proximal lungs but the distal branches were not seen. Perfusion scan was done and showed low probability of PE. Pulmonary consult showed was done. Patient is on lovenox and albuterol. Medical consult was also done and started her on treatment for pneumonia with Rocephin and zithromax. Blood culture is pending. Today, she says that she is feeling better. She is has SOB but only when she walks around. Her O2 sat is 97% on RA. Objective - Vital Signs Vital Signs: Vital Signs - 12hr 10/29/18 10/29/18 10/29/18 01:23 01:28 01:32 Temperature Pulse Rate 100 H 102 H 109 H Pulse Rate [ Throughout] Respiratory Rate Respiratory Rate [ Throughout] Blood Pressure 99/57 O2 Sat by Pulse 98 98 Oximetry 10/29/18 10/29/18 10/29/18 01:33 01:38 01:43 Temperature Pulse Rate 105 H 103 H 99 H Pulse Rate [ Throughout] Respiratory Rate Respiratory Rate [ Throughout] Blood Pressure O2 Sat by Pulse 98 98 98 Oximetry 10/29/18 10/29/18 10/29/18 01:48 01:53 01:58 Temperature Pulse Rate 99 H 104 H 104 H Pulse Rate [ Throughout] Respiratory Rate Respiratory Rate [ Throughout] Blood Pressure O2 Sat by Pulse 99 98 99 Oximetry 10/29/18 10/29/18 10/29/18 02:02 02:03 02:07 Temperature Pulse Rate 110 H 106 H 110 H Pulse Rate [ Throughout] Respiratory Rate Respiratory Rate [ Throughout] Blood Pressure 119/65 O2 Sat by Pulse 96 94 Oximetry 10/29/18 10/29/18 10/29/18 02:08 02:23 02:28 Temperature Pulse Rate 105 H 112 H 109 H Pulse Rate [ Throughout] Respiratory Rate Respiratory Rate [ Throughout] Blood Pressure O2 Sat by Pulse 95 93 91 Oximetry 10/29/18 10/29/18 10/29/18 02:31 02:33 02:34 Temperature Pulse Rate 109 H 111 H 105 H Pulse Rate [ Throughout] Respiratory Rate Respiratory Rate [ Throughout] Blood Pressure 104/52 O2 Sat by Pulse 94 94 Oximetry 10/29/18 10/29/18 10/29/18 02:38 02:43 02:48 Temperature Pulse Rate 106 H 105 H 106 H Pulse Rate [ Throughout] Respiratory Rate Respiratory Rate [ Throughout] Blood Pressure O2 Sat by Pulse 94 93 93 Oximetry 10/29/18 10/29/18 10/29/18 02:53 02:58 03:03 Temperature Pulse Rate 108 H 109 H 104 H Pulse Rate [ Throughout] Respiratory Rate Respiratory Rate [ Throughout] Blood Pressure 99/50 O2 Sat by Pulse 93 93 94 Oximetry 10/29/18 10/29/18 10/29/18 03:08 03:13 03:18 Temperature Pulse Rate 103 H 106 H 104 H Pulse Rate [ Throughout] Respiratory Rate Respiratory Rate [ Throughout] Blood Pressure O2 Sat by Pulse 94 94 93 Oximetry 10/29/18 10/29/18 10/29/18 03:23 03:28 03:32 Temperature Pulse Rate 106 H 106 H 108 H Pulse Rate [ Throughout] Respiratory Rate Respiratory Rate [ Throughout] Blood Pressure 98/54 O2 Sat by Pulse 93 93 77 L Oximetry 10/29/18 10/29/18 10/29/18 03:33 03:38 03:43 Temperature Pulse Rate 106 H 107 H 106 H Pulse Rate [ Throughout] Respiratory Rate Respiratory Rate [ Throughout] Blood Pressure O2 Sat by Pulse 94 95 95 Oximetry 10/29/18 10/29/18 10/29/18 03:45 03:48 03:53 Temperature Pulse Rate 106 H 101 H 105 H Pulse Rate [ Throughout] Respiratory Rate Respiratory Rate [ Throughout] Blood Pressure O2 Sat by Pulse 93 94 94 Oximetry 10/29/18 10/29/18 10/29/18 03:55 03:58 04:00 Temperature Pulse Rate 110 H 104 H 102 H Pulse Rate [ Throughout] Respiratory Rate Respiratory Rate [ Throughout] Blood Pressure O2 Sat by Pulse 94 96 94 Oximetry 10/29/18 10/29/18 10/29/18 04:02 04:03 04:08 Temperature Pulse Rate 108 H 110 H 108 H Pulse Rate [ Throughout] Respiratory Rate Respiratory Rate [ Throughout] Blood Pressure 99/50 O2 Sat by Pulse 93 95 Oximetry 10/29/18 10/29/18 10/29/18 04:09 04:13 04:15 Temperature 98.3 F Pulse Rate 107 H 109 H Pulse Rate [ Throughout] Respiratory 18 Rate Respiratory Rate [ Throughout] Blood Pressure O2 Sat by Pulse 94 96 Oximetry 10/29/18 10/29/18 10/29/18 04:18 04:23 04:28 Temperature Pulse Rate 103 H 100 H 103 H Pulse Rate [ Throughout] Respiratory Rate Respiratory Rate [ Throughout] Blood Pressure O2 Sat by Pulse 99 98 98 Oximetry 10/29/18 10/29/18 10/29/18 04:32 04:33 04:38 Temperature Pulse Rate 103 H 102 H 108 H Pulse Rate [ Throughout] Respiratory Rate Respiratory Rate [ Throughout] Blood Pressure 101/53 O2 Sat by Pulse 98 98 Oximetry 10/29/18 10/29/18 10/29/18 04:43 04:48 04:53 Temperature Pulse Rate 109 H 109 H 104 H Pulse Rate [ Throughout] Respiratory Rate Respiratory Rate [ Throughout] Blood Pressure O2 Sat by Pulse 98 98 98 Oximetry 10/29/18 10/29/18 10/29/18 04:58 05:03 05:08 Temperature Pulse Rate 107 H 109 H 107 H Pulse Rate [ Throughout] Respiratory Rate Respiratory Rate [ Throughout] Blood Pressure O2 Sat by Pulse 98 98 97 Oximetry 10/29/18 10/29/18 10/29/18 05:13 05:18 05:21 Temperature Pulse Rate 111 H 105 H 107 H Pulse Rate [ Throughout] Respiratory Rate Respiratory Rate [ Throughout] Blood Pressure O2 Sat by Pulse 98 97 94 Oximetry 10/29/18 10/29/18 10/29/18 05:23 05:27 05:29 Temperature Pulse Rate 91 H 103 H 106 H Pulse Rate [ Throughout] Respiratory Rate Respiratory Rate [ Throughout] Blood Pressure O2 Sat by Pulse 95 94 98 Oximetry 10/29/18 10/29/18 10/29/18 05:34 05:39 05:44 Temperature Pulse Rate 108 H 110 H 111 H Pulse Rate [ Throughout] Respiratory Rate Respiratory Rate [ Throughout] Blood Pressure O2 Sat by Pulse 97 96 97 Oximetry 10/29/18 10/29/18 10/29/18 06:05 06:06 06:10 Temperature Pulse Rate 117 H 118 H 113 H Pulse Rate [ Throughout] Respiratory Rate Respiratory Rate [ Throughout] Blood Pressure 105/57 O2 Sat by Pulse 98 93 95 Oximetry 10/29/18 10/29/18 10/29/18 06:15 06:20 06:24 Temperature Pulse Rate 105 H 107 H 104 H Pulse Rate [ Throughout] Respiratory Rate Respiratory Rate [ Throughout] Blood Pressure O2 Sat by Pulse 96 95 94 Oximetry 10/29/18 10/29/18 10/29/18 06:25 06:30 06:32 Temperature Pulse Rate 105 H 106 H 104 H Pulse Rate [ Throughout] Respiratory Rate Respiratory Rate [ Throughout] Blood Pressure 96/55 O2 Sat by Pulse 95 95 94 Oximetry 10/29/18 10/29/18 10/29/18 06:35 06:40 06:44 Temperature Pulse Rate 108 H 108 H 113 H Pulse Rate [ Throughout] Respiratory Rate Respiratory Rate [ Throughout] Blood Pressure O2 Sat by Pulse 95 95 94 Oximetry 10/29/18 10/29/18 10/29/18 06:45 06:50 06:55 Temperature Pulse Rate 107 H 115 H 112 H Pulse Rate [ Throughout] Respiratory Rate Respiratory Rate [ Throughout] Blood Pressure O2 Sat by Pulse 96 96 94 Oximetry 10/29/18 10/29/18 10/29/18 06:57 07:00 07:02 Temperature Pulse Rate 104 H 106 H 103 H Pulse Rate [ Throughout] Respiratory Rate Respiratory Rate [ Throughout] Blood Pressure 121/64 O2 Sat by Pulse 94 96 Oximetry 10/29/18 10/29/18 10/29/18 07:03 07:05 07:10 Temperature Pulse Rate 105 H 103 H 105 H Pulse Rate [ Throughout] Respiratory Rate Respiratory Rate [ Throughout] Blood Pressure O2 Sat by Pulse 94 94 95 Oximetry 10/29/18 10/29/18 10/29/18 07:15 07:20 07:25 Temperature Pulse Rate 105 H 105 H 105 H Pulse Rate [ Throughout] Respiratory Rate Respiratory Rate [ Throughout] Blood Pressure O2 Sat by Pulse 95 93 93 Oximetry 10/29/18 10/29/18 10/29/18 07:27 07:30 07:33 Temperature Pulse Rate 117 H 103 H 103 H Pulse Rate [ Throughout] Respiratory Rate Respiratory Rate [ Throughout] Blood Pressure O2 Sat by Pulse 92 95 94 Oximetry 10/29/18 10/29/18 10/29/18 07:35 07:38 07:40 Temperature Pulse Rate 108 H 108 H 111 H Pulse Rate [ Throughout] Respiratory Rate Respiratory Rate [ Throughout] Blood Pressure O2 Sat by Pulse 95 94 94 Oximetry 10/29/18 10/29/18 10/29/18 07:43 07:45 07:50 Temperature Pulse Rate 111 H 103 H 109 H Pulse Rate [ Throughout] Respiratory Rate Respiratory Rate [ Throughout] Blood Pressure O2 Sat by Pulse 94 95 95 Oximetry 10/29/18 10/29/18 10/29/18 07:54 07:55 08:00 Temperature Pulse Rate 110 H 111 H 111 H Pulse Rate [ Throughout] Respiratory Rate Respiratory Rate [ Throughout] Blood Pressure O2 Sat by Pulse 94 95 95 Oximetry 10/29/18 10/29/18 10/29/18 08:02 08:05 08:22 Temperature Pulse Rate 122 H 105 H 118 H Pulse Rate [ Throughout] Respiratory Rate Respiratory Rate [ Throughout] Blood Pressure 133/68 O2 Sat by Pulse 94 96 Oximetry 10/29/18 10/29/18 10/29/18 10:06 10:07 10:11 Temperature Pulse Rate 115 H 113 H 111 H Pulse Rate [ Throughout] Respiratory Rate Respiratory Rate [ Throughout] Blood Pressure 101/53 O2 Sat by Pulse 92 95 Oximetry 10/29/18 10/29/18 10/29/18 10:13 10:16 10:18 Temperature Pulse Rate 107 H 111 H 108 H Pulse Rate [ Throughout] Respiratory Rate Respiratory Rate [ Throughout] Blood Pressure O2 Sat by Pulse 94 96 94 Oximetry 10/29/18 10/29/18 10/29/18 10:21 10:26 10:31 Temperature Pulse Rate 112 H 112 H 114 H Pulse Rate [ Throughout] Respiratory Rate Respiratory Rate [ Throughout] Blood Pressure O2 Sat by Pulse 94 95 95 Oximetry 10/29/18 10/29/18 10/29/18 10:36 10:41 10:42 Temperature Pulse Rate 113 H 115 H 120 H Pulse Rate [ Throughout] Respiratory Rate Respiratory Rate [ Throughout] Blood Pressure O2 Sat by Pulse 95 95 94 Oximetry 10/29/18 10/29/18 10/29/18 10:46 10:48 10:59 Temperature Pulse Rate 112 H 120 H 114 H Pulse Rate [ Throughout] Respiratory Rate Respiratory Rate [ Throughout] Blood Pressure O2 Sat by Pulse 96 94 97 Oximetry 10/29/18 10/29/18 10/29/18 11:02 11:04 11:09 Temperature Pulse Rate 115 H 117 H Pulse Rate [ 116 H Throughout] Respiratory Rate Respiratory 17 Rate [ Throughout] Blood Pressure O2 Sat by Pulse 96 95 Oximetry 10/29/18 10/29/18 10/29/18 11:14 11:19 11:24 Temperature Pulse Rate 119 H 124 H 129 H Pulse Rate [ 116 H Throughout] Respiratory Rate Respiratory 18 Rate [ Throughout] Blood Pressure O2 Sat by Pulse 95 97 99 Oximetry 10/29/18 10/29/18 10/29/18 11:29 11:34 11:39 Temperature Pulse Rate 119 H 116 H 121 H Pulse Rate [ Throughout] Respiratory Rate Respiratory Rate [ Throughout] Blood Pressure O2 Sat by Pulse 97 97 97 Oximetry 10/29/18 10/29/18 10/29/18 11:44 11:58 12:36 Temperature Pulse Rate 118 H 126 H 122 H Pulse Rate [ Throughout] Respiratory Rate Respiratory Rate [ Throughout] Blood Pressure 125/58 O2 Sat by Pulse 97 98 Oximetry 10/29/18 10/29/18 13:08 13:13 Temperature Pulse Rate 125 H 122 H Pulse Rate [ Throughout] Respiratory Rate Respiratory Rate [ Throughout] Blood Pressure O2 Sat by Pulse 97 97 Oximetry - Labs Labs: Abnormal Labs 10/27/18 10/27/18 10/27/18 14:37 14:37 14:37 Hgb 9.0 L Hct 28.9 L MCV 71 L MCH 22 L RDW 20.7 H [place] % (Auto) 12.3 H Lymph # Seg Neutrophils % D-Dimer 612.61 H Sodium 136 L Potassium 3.5 L Chloride Carbon Dioxide 19 L BUN 4 L Creatinine 0.4 L Glucose Lactic Acid Alkaline Phosphatase Total Creatine Kinase Albumin Urine WBC (Auto) 10/27/18 10/27/18 10/27/18 14:37 15:46 17:49 Hgb Hct MCV MCH RDW [place] % (Auto) Lymph # Seg Neutrophils % D-Dimer Sodium Potassium Chloride Carbon Dioxide BUN Creatinine Glucose Lactic Acid Alkaline Phosphatase 189 H Total Creatine Kinase 349 H Albumin 3.6 L Urine WBC (Auto) 15.0 H 10/27/18 10/27/18 10/27/18 19:20 20:51 21:30 Hgb Hct MCV MCH RDW [place] % (Auto) Lymph # Seg Neutrophils % D-Dimer Sodium Potassium Chloride Carbon Dioxide BUN Creatinine Glucose Lactic Acid 4.10 H* 4.10 H* 4.10 H* Alkaline Phosphatase Total Creatine Kinase Albumin Urine WBC (Auto) 10/28/18 10/28/18 10/28/18 06:06 06:06 06:06 Hgb 8.5 L Hct 27.5 L MCV 70 L MCH 22 L RDW 20.0 H [place] % (Auto) 9.2 H Lymph # 1.1 L Seg Neutrophils % 75.0 H D-Dimer Sodium Potassium 3.5 L Chloride 107.2 H Carbon Dioxide 18 L BUN 3 L Creatinine 0.4 L Glucose 133 H Lactic Acid 2.30 H* Alkaline Phosphatase Total Creatine Kinase Albumin Urine WBC (Auto) 10/28/18 10/29/18 10/29/18 08:09 09:43 09:43 Hgb 8.7 L Hct 27.3 L MCV MCH RDW [place] % (Auto) Lymph # Seg Neutrophils % D-Dimer Sodium Potassium 3.2 L Chloride Carbon Dioxide 20 L BUN 2 L Creatinine 0.4 L Glucose 108 H Lactic Acid 2.30 H* Alkaline Phosphatase Total Creatine Kinase Albumin Urine WBC (Auto) Laboratory Results - last 24 hr 10/28/18 10/29/18 10/29/18 Unknown 09:43 09:43 Hgb 8.7 L Hct 27.3 L Sodium 137 Potassium 3.2 L Chloride 101.7 Carbon Dioxide 20 L Anion Gap 19 BUN 2 L Creatinine 0.4 L Estimated GFR > 60 BUN/Creatinine Ratio 5 Glucose 108 H Calcium 8.6 Urine Opiates Screen Presumptive negative Urine Methadone Screen Presumptive negative Ur Barbiturates Screen Presumptive negative Ur Phencyclidine Scrn Presumptive negative Ur Amphetamines Screen Presumptive negative U Benzodiazepines Scrn Presumptive negative Urine Cocaine Screen Presumptive negative U Marijuana (THC) Screen Presumptive negative Drugs of Abuse Note Disclamer
[2018-10-29] MEDS: SOLU-Medrol IV SCH (15:24)
--- NOTE | 2018-10-29 17:15 | Event Note ---
Date: 10/29/18 Patient is being treated for pneumonia. She has been afebrile. Lab called and said that her blood culture grew gram + cocci in clusters. Sensitivity is pending. ID consult called. Continue rocephin and zithromax.
[2018-10-30] MEDS: PROVENTIL IH SCH ×4 (02:25→09:03)
[2018-10-30 09:53] LABS: Hematocrit 28.5 % (30.3-42.9); Hemoglobin 8.9 gm/dl (10.1-14.3)
[2018-10-30 10:08] LABS: BUN/Creatinine Ratio 8; Blood Urea Nitrogen 3 mg/dL (7-17); Calcium 8.5 mg/dL (8.4-10.2); Hemolysis Index 9
--- NOTE | 2018-10-30 10:18 | Progress Note ---
Assessment and Plan Clinical impression: Asthmatic bronchitis. Still active but improving. No PMH of asthma, but strong family Hx ( children's, siblings) No gross PE on Chest CTA- see report, comments Questionable pneumonia UTI Lactic acidemia High D dimer- IUP,UTI, low probability Weels for both PE and DVT, Scabs normal Recommendations Complete ABX. Looks like BC may be contaminant,been repeated Ambulate OOB,monitor tolerance and oximetry Switch to DouNeb q 4 hr Pulmicort nebs Watch for GERD Sx's Oxygen support for O2 sat < 92% Prednisone 40 mg qd Discussed with patient in detail.All questions answered. Subjective Date of service: 10/30/18 Principal diagnosis: asthmatic bronchitis,IUP Interval history: No events overnight. Still some cough and wheezing walking. No fever. No chest pain,bleeding Objective Vital Signs - 12hr 10/30/18 08:51 Pulse Rate 103 H Blood Pressure 125/73 Constitutional: no acute distress, alert, other (morbidly obese) ENT: oropharynx moist Neck: supple, no JVD Ascultation: Bilateral: clear, wheezes (mild) Cardiovascular: other (tachycardic) Gastrointestinal: normoactive bowel sounds, non-distended, other (IUP) Integumentary: normal Neurologic: normal mental status, non-focal exam, pupils equal and round, CN II- XII normal, motor strength normal and Psychiatric: mood appropriate CBC and BMP: 10/30/18 09:19 10/30/18 09:19 ABG, PT/INR, D-dimer: PT/INR, D-dimer PT 13.2 Sec. (12.2-14.9) 10/27/18 14:37 INR 0.95 (0.87-1.13) 10/27/18 14:37 612.61 ng/mlDDU (0-234) H 10/27/18 14:37 Abnormal lab findings: Abnormal Labs 10/27/18 10/27/18 10/27/18 14:37 14:37 14:37 Hgb 9.0 L Hct 28.9 L MCV 71 L MCH 22 L RDW 20.7 H [place] % (Auto) 12.3 H Lymph # Seg Neutrophils % D-Dimer 612.61 H Sodium 136 L Potassium 3.5 L Chloride Carbon Dioxide 19 L BUN 4 L Creatinine 0.4 L Glucose Lactic Acid Alkaline Phosphatase Total Creatine Kinase Albumin Urine WBC (Auto) 10/27/18 10/27/18 10/27/18 14:37 15:46 17:49 Hgb Hct MCV MCH RDW [place] % (Auto) Lymph # Seg Neutrophils % D-Dimer Sodium Potassium Chloride Carbon Dioxide BUN Creatinine Glucose Lactic Acid Alkaline Phosphatase 189 H Total Creatine Kinase 349 H Albumin 3.6 L Urine WBC (Auto) 15.0 H 10/27/18 10/27/18 10/27/18 19:20 20:51 21:30 Hgb Hct MCV MCH RDW [place] % (Auto) Lymph # Seg Neutrophils % D-Dimer Sodium Potassium Chloride Carbon Dioxide BUN Creatinine Glucose Lactic Acid 4.10 H* 4.10 H* 4.10 H* Alkaline Phosphatase Total Creatine Kinase Albumin Urine WBC (Auto) 10/28/18 10/28/18 10/28/18 06:06 06:06 06:06 Hgb 8.5 L Hct 27.5 L MCV 70 L MCH 22 L RDW 20.0 H [place] % (Auto) 9.2 H Lymph # 1.1 L Seg Neutrophils % 75.0 H D-Dimer Sodium Potassium 3.5 L Chloride 107.2 H Carbon Dioxide 18 L BUN 3 L Creatinine 0.4 L Glucose 133 H Lactic Acid 2.30 H* Alkaline Phosphatase Total Creatine Kinase Albumin Urine WBC (Auto) 10/28/18 10/29/18 10/29/18 08:09 09:43 09:43 Hgb 8.7 L Hct 27.3 L MCV MCH RDW [place] % (Auto) Lymph # Seg Neutrophils % D-Dimer Sodium Potassium 3.2 L Chloride Carbon Dioxide 20 L BUN 2 L Creatinine 0.4 L Glucose 108 H Lactic Acid 2.30 H* Alkaline Phosphatase Total Creatine Kinase Albumin Urine WBC (Auto) 10/30/18 10/30/18 09:19 09:19 Hgb 8.9 L Hct 28.5 L MCV MCH RDW [place] % (Auto) Lymph # Seg Neutrophils % D-Dimer Sodium Potassium 3.1 L Chloride Carbon Dioxide 21 L BUN 3 L Creatinine 0.4 L Glucose 115 H Lactic Acid Alkaline Phosphatase Total Creatine Kinase Albumin Urine WBC (Auto) Additional Studies: Echo- normal, see report.
[2018-10-30] MEDS: FEOSOL PO SCH ×2 (10:48→22:49)
[2018-10-30] MEDS: ROCEPHIN/NS 1 GM/50 ML 1 GM/50 ML BAG IV SCH ×2 (10:49→13:12)
[2018-10-30] MEDS: PRENATAL VITAMIN PO SCH (10:49)
[2018-10-30] MEDS: DUONEB *Not for PRN Use IH SCH ×4 (12:27→23:53)
[2018-10-30] MEDS: PULMICORT IH SCH ×2 (12:35→23:53)
--- NOTE | 2018-10-30 13:03 | Progress Note ---
Assessment and Plan - Patient Problems (1) 32 weeks gestation of Current Visit: Yes Status: Acute (2) Pneumonia Current Visit: Yes Status: Acute (3) Tachycardia Current Visit: Yes Status: Acute Subjective - Subjective Date of service: 10/30/18 Principal diagnosis: asthmatic bronchitis,IUP Interval history: Patient is a 28 year old , LMP, EDC 12/07/18 at 32 weeks and 6 days gestation who was admitted with SOB, cough, chest pain. Vitals signs showed tachycardia. CXR showed lung opacities. CT scan was done and showed no PE in the proximal lungs but the distal branches were not seen. Perfusion scan was done and showed low probability of PE. Pulmonary consult showed was done. Patient is on lovenox and albuterol. Medical consult was also done and started her on treatment for pneumonia with Rocephin and zithromax. Blood culture is pending. Today, she says that she is feeling better. She is has SOB but only when she walks around. Her O2 sat is 97% on RA. Objective - Vital Signs Vital Signs: Vital Signs - 12hr 10/30/18 10/30/18 10/30/18 08:51 12:29 12:33 Pulse Rate 103 H Pulse Rate [ 107 H 110 H Throughout] Respiratory 18 18 Rate [ Throughout] Blood Pressure 125/73 - Labs Labs: Abnormal Labs 10/27/18 10/27/18 10/27/18 14:37 14:37 14:37 Hgb 9.0 L Hct 28.9 L MCV 71 L MCH 22 L RDW 20.7 H [place] % (Auto) 12.3 H Lymph # Seg Neutrophils % D-Dimer 612.61 H Sodium 136 L Potassium 3.5 L Chloride Carbon Dioxide 19 L BUN 4 L Creatinine 0.4 L Glucose Lactic Acid Alkaline Phosphatase Total Creatine Kinase Albumin Urine WBC (Auto) 10/27/18 10/27/18 10/27/18 14:37 15:46 17:49 Hgb Hct MCV MCH RDW [place] % (Auto) Lymph # Seg Neutrophils % D-Dimer Sodium Potassium Chloride Carbon Dioxide BUN Creatinine Glucose Lactic Acid Alkaline Phosphatase 189 H Total Creatine Kinase 349 H Albumin 3.6 L Urine WBC (Auto) 15.0 H 10/27/18 10/27/18 10/27/18 19:20 20:51 21:30 Hgb Hct MCV MCH RDW [place] % (Auto) Lymph # Seg Neutrophils % D-Dimer Sodium Potassium Chloride Carbon Dioxide BUN Creatinine Glucose Lactic Acid 4.10 H* 4.10 H* 4.10 H* Alkaline Phosphatase Total Creatine Kinase Albumin Urine WBC (Auto) 10/28/18 10/28/18 10/28/18 06:06 06:06 06:06 Hgb 8.5 L Hct 27.5 L MCV 70 L MCH 22 L RDW 20.0 H [place] % (Auto) 9.2 H Lymph # 1.1 L Seg Neutrophils % 75.0 H D-Dimer Sodium Potassium 3.5 L Chloride 107.2 H Carbon Dioxide 18 L BUN 3 L Creatinine 0.4 L Glucose 133 H Lactic Acid 2.30 H* Alkaline Phosphatase Total Creatine Kinase Albumin Urine WBC (Auto) 10/28/18 10/29/18 10/29/18 08:09 09:43 09:43 Hgb 8.7 L Hct 27.3 L MCV MCH RDW [place] % (Auto) Lymph # Seg Neutrophils % D-Dimer Sodium Potassium 3.2 L Chloride Carbon Dioxide 20 L BUN 2 L Creatinine 0.4 L Glucose 108 H Lactic Acid 2.30 H* Alkaline Phosphatase Total Creatine Kinase Albumin Urine WBC (Auto) 10/30/18 10/30/18 09:19 09:19 Hgb 8.9 L Hct 28.5 L MCV MCH RDW [place] % (Auto) Lymph # Seg Neutrophils % D-Dimer Sodium Potassium 3.1 L Chloride Carbon Dioxide 21 L BUN 3 L Creatinine 0.4 L Glucose 115 H Lactic Acid Alkaline Phosphatase Total Creatine Kinase Albumin Urine WBC (Auto) Laboratory Results - last 24 hr 10/29/18 10/29/18 10/30/18 19:12 19:12 09:19 Hgb 8.9 L Hct 28.5 L Sodium Potassium Chloride Carbon Dioxide Anion Gap BUN Creatinine Estimated GFR BUN/Creatinine Ratio Glucose Calcium TSH 2.390 Free T4 0.77 10/30/18 09:19 Hgb Hct Sodium 139 Potassium 3.1 L Chloride 103.2 Carbon Dioxide 21 L Anion Gap 18 BUN 3 L Creatinine 0.4 L Estimated GFR > 60 BUN/Creatinine Ratio 8 Glucose 115 H Calcium 8.5 TSH Free T4
[2018-10-30] MEDS ORDERED: SOLU-Medrol IV SCH (14:00)
--- NOTE | 2018-10-30 14:01 | Progress Note ---
Assessment and Plan Community-acquired LLL pneumonia - Continue IV Rocephin, azithromycin, and Breathing treatments, - need to change po abx on discharge -33 weeks - obg/instructional supervisor following ?? PE, suspect it on admission but now ruled out - CTA non-confirmatory but VQ scan results negative, - off therapeutic dose of Lovenox Acute bronchospasm/asthmatic bronchitis - Could be from pneumonia -Changed IV to by mouth steroid and continue scheduled breathing treatments for now along with IV antibiotics UTI, cont abx Bacteremia, one out of two cx growing staph coag - possible contamination - ordered repeat cx. no need for additional abx hypokalemia, replete and monitor DVT prophylaxis, Lovenox Will need outpatient follow-up with attendant self service store medically stable, d/c planning per instructional supervisor will follow Subjective Date of service: 10/30/18 Principal diagnosis: asthmatic bronchitis,IUP Interval history: Patient seen and examined. Medical records and medication list reviewed. No acute event overnight noted by the RN. Breathing much improved. Patient is tolerating diet. Discussed plan of care at bedside with patient. Objective - Exam Narrative Exam: General appearance: Present: no acute distress, well-nourished - EENT Eyes: PERRL, EOM intact ENT: hearing intact, clear oral mucosa Ears: bilateral: normal - Neck Neck: supple, normal ROM - Respiratory Respiratory: bilateral: very few wheezing - Cardiovascular Heart Sounds: Present: S1 & S2. Absent: gallop, rub Extremities: pulses intact, No edema, normal color, Full ROM - Gastrointestinal General gastrointestinal: Present: soft, non-tender, non-distended, normal bowel sounds - Integumentary Integumentary: clear, warm, dry - Musculoskeletal Musculoskeletal: 1, strength equal bilaterally - Neurologic Neurologic: moves all extremities - Psychiatric Psychiatric: memory intact, appropriate mood/affect, intact judgment & insight - Constitutional Vitals: Vital Signs - 12hr 10/30/18 10/30/18 10/30/18 08:51 12:29 12:33 Pulse Rate 103 H Pulse Rate [ 107 H 110 H Throughout] Respiratory 18 18 Rate [ Throughout] Blood Pressure 125/73 O2 Sat by Pulse Oximetry 10/30/18 10/30/18 10/30/18 13:09 13:14 13:19 Pulse Rate 110 H 110 H 112 H Pulse Rate [ Throughout] Respiratory Rate [ Throughout] Blood Pressure O2 Sat by Pulse 97 96 97 Oximetry 10/30/18 10/30/18 13:24 13:29 Pulse Rate 110 H 112 H Pulse Rate [ Throughout] Respiratory Rate [ Throughout] Blood Pressure O2 Sat by Pulse 96 97 Oximetry - Labs CBC & Chem 7: 10/30/18 09:19 10/31/18 05:41 Labs: Abnormal lab results 10/30/18 10/30/18 Range/Units 09:19 09:19 Hgb 8.9 L (10.1-14.3) gm/dl Hct 28.5 L (30.3-42.9) % Potassium 3.1 L (3.6-5.0) mmol/L Carbon Dioxide 21 L (22-30) mmol/L BUN 3 L (7-17) mg/dL Creatinine 0.4 L (0.7-1.2) mg/dL Glucose 115 H (65-100) mg/dL
[2018-10-30] MEDS: K-DUR PO SCH (19:25)
[2018-10-30] MEDS: LOVENOX SUB-Q SCH (22:50)
[2018-10-31] MEDS: DUONEB *Not for PRN Use IH SCH ×4 (04:35→17:41)
[2018-10-31 06:30] LABS: BUN/Creatinine Ratio 8; Blood Urea Nitrogen 3 mg/dL (7-17); Calcium 8.4 mg/dL (8.4-10.2); Hemolysis Index 12
[2018-10-31] MEDS: PULMICORT IH SCH (08:15)
[2018-10-31] MEDS: SODIUM CHLORIDE FLUSH SYRINGE 10 ML IV SCH (10:30)
[2018-10-31] MEDS: PRENATAL VITAMIN PO SCH (10:35)
[2018-10-31] MEDS: FEOSOL PO SCH (10:35)
[2018-10-31] MEDS: ROCEPHIN/NS 1 GM/50 ML 1 GM/50 ML BAG IV SCH (10:40)
--- NOTE | 2018-10-31 10:50 | Progress Note ---
Assessment and Plan - Patient Problems (1) Pneumonia Current Visit: Yes Status: Acute Plan to address problem: Community acquired pneumonia- blood cultures x2; negative 10/29; appears previous isolate was contaminated. Per pulmonology recommendations will continue prednisone x 5 days Plan to discontinue IV antibiotics, start PO antibiotics and evaluate for discharge in 24-48hrs. Outpatient PO meds prescribed Symicort [place] Albuterol Peak Flow Monitor Will instruct to f/u with Dr. Teran in 2 weeks after discharge. (2) Tachycardia Current Visit: Yes Status: Acute Plan to address problem: Tachycardia - improved Tachypnea - resolved. (3) 33 weeks gestation of Current Visit: Yes Status: Acute Plan to address problem: status reassurring. NST reactive. Subjective - Subjective Principal diagnosis: asthmatic bronchitis,IUP Objective - Vital Signs Vital Signs: Vital Signs - 12hr 10/30/18 10/31/18 10/31/18 23:53 00:05 02:45 Temperature 97.0 F L Pulse Rate [ 112 H 114 H Anterior Bilateral] Pulse Rate [ Posterior Bilateral] Respiratory 18 Rate Respiratory 20 20 Rate [Anterior Bilateral] Respiratory Rate [Posterior Bilateral] 10/31/18 04:47 Temperature Pulse Rate [ 109 H Anterior Bilateral] Pulse Rate [ 110 H Posterior Bilateral] Respiratory Rate Respiratory 18 Rate [Anterior Bilateral] Respiratory 18 Rate [Posterior Bilateral] - Labs Labs: Abnormal Labs 10/27/18 10/27/18 10/27/18 14:37 14:37 14:37 Hgb 9.0 L Hct 28.9 L MCV 71 L MCH 22 L RDW 20.7 H [place] % (Auto) 12.3 H Lymph # Seg Neutrophils % D-Dimer 612.61 H Sodium 136 L Potassium 3.5 L Chloride Carbon Dioxide 19 L BUN 4 L Creatinine 0.4 L Glucose Lactic Acid Alkaline Phosphatase Total Creatine Kinase Albumin Urine WBC (Auto) 10/27/18 10/27/18 10/27/18 14:37 15:46 17:49 Hgb Hct MCV MCH RDW [place] % (Auto) Lymph # Seg Neutrophils % D-Dimer Sodium Potassium Chloride Carbon Dioxide BUN Creatinine Glucose Lactic Acid Alkaline Phosphatase 189 H Total Creatine Kinase 349 H Albumin 3.6 L Urine WBC (Auto) 15.0 H 10/27/18 10/27/18 10/27/18 19:20 20:51 21:30 Hgb Hct MCV MCH RDW [place] % (Auto) Lymph # Seg Neutrophils % D-Dimer Sodium Potassium Chloride Carbon Dioxide BUN Creatinine Glucose Lactic Acid 4.10 H* 4.10 H* 4.10 H* Alkaline Phosphatase Total Creatine Kinase Albumin Urine WBC (Auto) 10/28/18 10/28/18 10/28/18 06:06 06:06 06:06 Hgb 8.5 L Hct 27.5 L MCV 70 L MCH 22 L RDW 20.0 H [place] % (Auto) 9.2 H Lymph # 1.1 L Seg Neutrophils % 75.0 H D-Dimer Sodium Potassium 3.5 L Chloride 107.2 H Carbon Dioxide 18 L BUN 3 L Creatinine 0.4 L Glucose 133 H Lactic Acid 2.30 H* Alkaline Phosphatase Total Creatine Kinase Albumin Urine WBC (Auto) 10/28/18 10/29/18 10/29/18 08:09 09:43 09:43 Hgb 8.7 L Hct 27.3 L MCV MCH RDW [place] % (Auto) Lymph # Seg Neutrophils % D-Dimer Sodium Potassium 3.2 L Chloride Carbon Dioxide 20 L BUN 2 L Creatinine 0.4 L Glucose 108 H Lactic Acid 2.30 H* Alkaline Phosphatase Total Creatine Kinase Albumin Urine WBC (Auto) 10/30/18 10/30/18 10/31/18 09:19 09:19 05:41 Hgb 8.9 L Hct 28.5 L MCV MCH RDW [place] % (Auto) Lymph # Seg Neutrophils % D-Dimer Sodium Potassium 3.1 L Chloride Carbon Dioxide 21 L 21 L BUN 3 L 3 L Creatinine 0.4 L 0.4 L Glucose 115 H 111 H Lactic Acid Alkaline Phosphatase Total Creatine Kinase Albumin Urine WBC (Auto) Laboratory Results - last 24 hr 10/31/18 05:41 Sodium 140 Potassium 3.7 Chloride 104.8 Carbon Dioxide 21 L Anion Gap 18 BUN 3 L Creatinine 0.4 L Estimated GFR > 60 BUN/Creatinine Ratio 8 Glucose 111 H Calcium 8.4
--- NOTE | 2018-10-31 10:58 | Progress Note ---
Assessment and Plan Clinical impression: Asthmatic bronchitis. Resolved Bronchial asthma. To be evaluated outpatient No gross PE on Chest CTA- see report, comments Questionable pneumonia UTI Lactic acidemia High D dimer- IUP,UTI, low probability Weels for both PE and DVT, Scabs normal Recommendations Complete ABX. Prednisone 40 mg qd x 5 days and discontinue Ambulate patient and monitor oximetry. Add portable oxygen 2 L/m if oximetry below 89% on room air. Inhaler therapy including LABA/ICS/LTRE therapy, recommend Symbicort 160/4.5 mg 2 inhalations twice a day plus montelukast 10 mg daily at bedtime. Albuterol MDI for breakthrough symptoms Give patient peak flow monitor and asked to record two-week log after discharge Nutritional support, weight reduction diet. Advised patient to follow with Dr. Teran at the office in 2 weeks for asthma f ollow-up and workup Discussed with patient in detail.All questions answered. We'll sign off Subjective Date of service: 10/31/18 Principal diagnosis: asthmatic bronchitis,IUP,LRTI ? Interval history: No events overnight. Denies cough or shortness of breath this morning. She was able to walk today without any respiratory limitation or complaints. Objective Vital Signs - 12hr 10/30/18 10/31/18 10/31/18 23:53 00:05 02:45 Temperature 97.0 F L Pulse Rate [ 112 H 114 H Anterior Bilateral] Pulse Rate [ Posterior Bilateral] Respiratory 18 Rate Respiratory 20 20 Rate [Anterior Bilateral] Respiratory Rate [Posterior Bilateral] 10/31/18 04:47 Temperature Pulse Rate [ 109 H Anterior Bilateral] Pulse Rate [ 110 H Posterior Bilateral] Respiratory Rate Respiratory 18 Rate [Anterior Bilateral] Respiratory 18 Rate [Posterior Bilateral] Constitutional: no acute distress, alert, other (morbidly obese) ENT: oropharynx moist Neck: supple, no JVD Ascultation: Bilateral: clear Cardiovascular: regular rate and rhythm Gastrointestinal: normoactive bowel sounds, non-distended, other (obese) Integumentary: normal Neurologic: normal mental status, non-focal exam, pupils equal and round, CN II- XII normal, motor strength normal and Psychiatric: mood appropriate, affect normal CBC and BMP: 10/30/18 09:19 10/31/18 05:41 ABG, PT/INR, D-dimer: PT/INR, D-dimer PT 13.2 Sec. (12.2-14.9) 10/27/18 14:37 INR 0.95 (0.87-1.13) 10/27/18 14:37 612.61 ng/mlDDU (0-234) H 10/27/18 14:37 Abnormal lab findings: Abnormal Labs 10/27/18 10/27/18 10/27/18 14:37 14:37 14:37 Hgb 9.0 L Hct 28.9 L MCV 71 L MCH 22 L RDW 20.7 H [place] % (Auto) 12.3 H Lymph # Seg Neutrophils % D-Dimer 612.61 H Sodium 136 L Potassium 3.5 L Chloride Carbon Dioxide 19 L BUN 4 L Creatinine 0.4 L Glucose Lactic Acid Alkaline Phosphatase Total Creatine Kinase Albumin Urine WBC (Auto) 10/27/18 10/27/18 10/27/18 14:37 15:46 17:49 Hgb Hct MCV MCH RDW [place] % (Auto) Lymph # Seg Neutrophils % D-Dimer Sodium Potassium Chloride Carbon Dioxide BUN Creatinine Glucose Lactic Acid Alkaline Phosphatase 189 H Total Creatine Kinase 349 H Albumin 3.6 L Urine WBC (Auto) 15.0 H 10/27/18 10/27/18 10/27/18 19:20 20:51 21:30 Hgb Hct MCV MCH RDW [place] % (Auto) Lymph # Seg Neutrophils % D-Dimer Sodium Potassium Chloride Carbon Dioxide BUN Creatinine Glucose Lactic Acid 4.10 H* 4.10 H* 4.10 H* Alkaline Phosphatase Total Creatine Kinase Albumin Urine WBC (Auto) 10/28/18 10/28/18 10/28/18 06:06 06:06 06:06 Hgb 8.5 L Hct 27.5 L MCV 70 L MCH 22 L RDW 20.0 H [place] % (Auto) 9.2 H Lymph # 1.1 L Seg Neutrophils % 75.0 H D-Dimer Sodium Potassium 3.5 L Chloride 107.2 H Carbon Dioxide 18 L BUN 3 L Creatinine 0.4 L Glucose 133 H Lactic Acid 2.30 H* Alkaline Phosphatase Total Creatine Kinase Albumin Urine WBC (Auto) 10/28/18 10/29/18 10/29/18 08:09 09:43 09:43 Hgb 8.7 L Hct 27.3 L MCV MCH RDW [place] % (Auto) Lymph # Seg Neutrophils % D-Dimer Sodium Potassium 3.2 L Chloride Carbon Dioxide 20 L BUN 2 L Creatinine 0.4 L Glucose 108 H Lactic Acid 2.30 H* Alkaline Phosphatase Total Creatine Kinase Albumin Urine WBC (Auto) 10/30/18 10/30/18 10/31/18 09:19 09:19 05:41 Hgb 8.9 L Hct 28.5 L MCV MCH RDW [place] % (Auto) Lymph # Seg Neutrophils % D-Dimer Sodium Potassium 3.1 L Chloride Carbon Dioxide 21 L 21 L BUN 3 L 3 L Creatinine 0.4 L 0.4 L Glucose 115 H 111 H Lactic Acid Alkaline Phosphatase Total Creatine Kinase Albumin Urine WBC (Auto)
[2018-10-31] MEDS: ZITHROMAX 500 MG in NACL 0.9% 250ML 250 ML IV SCH (11:45)
[2018-10-31] MEDS: K-DUR PO SCH (12:04)
[2018-10-31] MEDS ORDERED: PEPCID IV ONE ×2 (13:33→14:35)
[2018-10-31] MEDS ORDERED: LACTATED RINGERS 1,000 ML ONE (13:47)
--- NOTE | 2018-10-31 16:31 | Progress Note ---
Assessment and Plan Community-acquired LLL pneumonia - s/p IV Rocephin and azithromycin, and Breathing treatments, - ok to change po abx now and complete regimen on discharge -33 weeks - obg/slab installer is following ?? PE, suspect it on admission but now ruled out - CTA non-confirmatory but VQ scan results negative, - off therapeutic dose of Lovenox Acute bronchospasm/asthmatic bronchitis - Could be from pneumonia -Changed IV to by mouth steroid and continue scheduled breathing treatments for now along with IV antibiotics UTI, cont abx Bacteremia, one out of two cx growing staph coag - possible contamination - ordered repeat cx. no need for additional abx hypokalemia, repleted and monitor DVT prophylaxis, Lovenox Will need outpatient follow-up with stylist apprentice medically stable, d/c planning per slab installer Subjective Date of service: 10/31/18 Principal diagnosis: asthmatic bronchitis,IUP Interval history: Patient seen and examined. Medical records and medication list reviewed. No acute event overnight noted by the RN. Breathing improved. Patient is tolerating diet. Discussed plan of care at bedside with patient. Plan for d/c today Objective - Exam Narrative Exam: General appearance: Present: no acute distress, well-nourished - EENT Eyes: PERRL, EOM intact ENT: hearing intact, clear oral mucosa Ears: bilateral: normal - Neck Neck: supple, normal ROM - Respiratory Respiratory: bilateral: very few wheezing - Cardiovascular Heart Sounds: Present: S1 & S2. Absent: gallop, rub Extremities: pulses intact, No edema, normal color, Full ROM - Gastrointestinal General gastrointestinal: Present: soft, non-tender, non-distended, normal bowel sounds - Integumentary Integumentary: clear, warm, dry - Musculoskeletal Musculoskeletal: 1, strength equal bilaterally - Neurologic Neurologic: moves all extremities - Psychiatric Psychiatric: memory intact, appropriate mood/affect, intact judgment & insight - Constitutional Vitals: Vital Signs - 12hr 10/31/18 10/31/18 10/31/18 04:47 13:35 13:44 Pulse Rate 114 H 119 H Pulse Rate [ 109 H Anterior Bilateral] Pulse Rate [ 110 H Posterior Bilateral] Respiratory 18 Rate [Anterior Bilateral] Respiratory 18 Rate [Posterior Bilateral] Blood Pressure O2 Sat by Pulse 97 97 Oximetry 10/31/18 10/31/18 10/31/18 13:49 13:54 13:57 Pulse Rate 120 H 120 H 119 H Pulse Rate [ Anterior Bilateral] Pulse Rate [ Posterior Bilateral] Respiratory Rate [Anterior Bilateral] Respiratory Rate [Posterior Bilateral] Blood Pressure O2 Sat by Pulse 97 96 94 Oximetry 10/31/18 10/31/18 10/31/18 13:59 14:04 14:09 Pulse Rate 108 H 110 H 111 H Pulse Rate [ Anterior Bilateral] Pulse Rate [ Posterior Bilateral] Respiratory Rate [Anterior Bilateral] Respiratory Rate [Posterior Bilateral] Blood Pressure 99/53 O2 Sat by Pulse 96 97 96 Oximetry 10/31/18 10/31/18 10/31/18 14:14 14:19 14:24 Pulse Rate 112 H 120 H 113 H Pulse Rate [ Anterior Bilateral] Pulse Rate [ Posterior Bilateral] Respiratory Rate [Anterior Bilateral] Respiratory Rate [Posterior Bilateral] Blood Pressure O2 Sat by Pulse 95 96 96 Oximetry 10/31/18 10/31/18 10/31/18 14:29 14:32 14:34 Pulse Rate 106 H 109 H 102 H Pulse Rate [ Anterior Bilateral] Pulse Rate [ Posterior Bilateral] Respiratory Rate [Anterior Bilateral] Respiratory Rate [Posterior Bilateral] Blood Pressure O2 Sat by Pulse 98 94 94 Oximetry 10/31/18 10/31/18 10/31/18 14:39 14:44 14:49 Pulse Rate 107 H 106 H 111 H Pulse Rate [ Anterior Bilateral] Pulse Rate [ Posterior Bilateral] Respiratory Rate [Anterior Bilateral] Respiratory Rate [Posterior Bilateral] Blood Pressure O2 Sat by Pulse 98 96 96 Oximetry 10/31/18 10/31/18 10/31/18 14:54 14:59 15:04 Pulse Rate 110 H 109 H 102 H Pulse Rate [ Anterior Bilateral] Pulse Rate [ Posterior Bilateral] Respiratory Rate [Anterior Bilateral] Respiratory Rate [Posterior Bilateral] Blood Pressure O2 Sat by Pulse 97 97 98 Oximetry 10/31/18 15:09 Pulse Rate 101 H Pulse Rate [ Anterior Bilateral] Pulse Rate [ Posterior Bilateral] Respiratory Rate [Anterior Bilateral] Respiratory Rate [Posterior Bilateral] Blood Pressure O2 Sat by Pulse 96 Oximetry - Labs CBC & Chem 7: 10/30/18 09:19 10/31/18 05:41 Labs: Abnormal lab results 10/31/18 Range/Units 05:41 Carbon Dioxide 21 L (22-30) mmol/L BUN 3 L (7-17) mg/dL Creatinine 0.4 L (0.7-1.2) mg/dL Glucose 111 H (65-100) mg/dL
[2018-10-31 17:51] VITALS: BP 126/67
[2018-10-31] MEDS ORDERED: SINGULAIR PO SCH (22:00)
== END 2018-10-31 17:10 | disposition home or self-care (01) | DRG 781 ==
LOC: ED 13:41 → 4A 19:37 → LD 10-28 16:20
PROVIDERS: ADMIT Internal Medicine; ATTEND Obstetrics & Gynecology
DX: O99.513 Diseases of the respiratory system complicating pregnancy, third trimester (principal); O10.913 Unspecified pre-existing hypertension complicating pregnancy, third trimester; R65.10 Systemic inflammatory response syndrome (SIRS) of non-infectious origin without acute organ dysfunction; R00.0 Tachycardia, unspecified; O75.89 Other specified complications of labor and delivery; M94.0 Chondrocostal junction syndrome [Tietze]; E66.01 Morbid (severe) obesity due to excess calories; O98.513 Other viral diseases complicating pregnancy, third trimester; B00.9 Herpesviral infection, unspecified; O99.013 Anemia complicating pregnancy, third trimester; D64.9 Anemia, unspecified; O23.43 Unspecified infection of urinary tract in pregnancy, third trimester; B95.2 Enterococcus as the cause of diseases classified elsewhere; B96.89 Other specified bacterial agents as the cause of diseases classified elsewhere; J45.909 Unspecified asthma, uncomplicated; J18.1 Lobar pneumonia, unspecified organism; O99.283 Endocrine, nutritional and metabolic diseases complicating pregnancy, third trimester; O99.213 Obesity complicating pregnancy, third trimester; E87.6 Hypokalemia; Z3A.32 32 weeks gestation of pregnancy; Z82.49 Family history of ischemic heart disease and other diseases of the circulatory system; Z79.899 Other long term (current) drug therapy
CPT/HCPCS: 36415; 71045; 71275; 76816; 76819; 78580; 80048; 80076; 80307; 81001; 82140; 82550; 83735; 83880; 84439; 84443; 84484; 85014; 85018; 85025; 85379; 85610; 87040; 93005; 93010; 93306; 93970; 94640; 96361; 96365; 96367; 96375; G0378; A9540; J0456; J0696; J1650; J2405; J2920; J2930; J3475; J7030; J7040; J7050; J7120; Q9967

== ENCOUNTER 2018-11-27 23:03 | Outpatient (CLI) | payer MEDICAID ==
[2018-11-28 01:14] VITALS: BP 111/68
== END 2018-11-28 02:00 | disposition home or self-care (01) ==
LOC: TRG 23:03
PROVIDERS: ATTEND Obstetrics & Gynecology
DX: O47.03 False labor before 37 completed weeks of gestation, third trimester (principal); O13.3 Gestational [pregnancy-induced] hypertension without significant proteinuria, third trimester; Z3A.37 37 weeks gestation of pregnancy
CPT/HCPCS: 59025

== ENCOUNTER 2018-11-30 15:48 | Inpatient (IN) | payer MEDICAID ==
[2018-11-30 17:14] LABS: Bacteria,Urine 1+ /HPF (Negative); Bilirubin,Urine NEG (Negative); Blood,Urine NEG (Negative); Color,Urine Yellow (Yellow); Mucus,Urine FEW /HPF; Protein,Urine <15 mg/dL mg/dL (Negative); Urobilinogen,Urine < 2.0 mg/dL (<2.0)
[2018-11-30] MEDS ORDERED: DEXMEDETOMIDINE IV ONE (19:53)
[2018-11-30] MEDS ORDERED: BICITRA PO SCH (19:57)
[2018-11-30] MEDS ORDERED: REGLAN IV SCH (19:57)
[2018-11-30] MEDS ORDERED: PEPCID IV SCH (19:57)
[2018-11-30] MEDS ORDERED: LACTATED RINGERS 1,000 ML IV SCH (20:00)
[2018-11-30] MEDS ORDERED: ANCEF/STERILE WATER 2 GM/20 ML 2 GM/20 ML SYRINGE IV NR (20:00)
[2018-11-30] MEDS ORDERED: PITOCin/NS 20 UNIT/1000ML DRIP 20 UNITS/1,000 ML BAG IV SCH ×2 (20:00→23:45)
[2018-11-30 20:11] LABS: Hematocrit 30.5 % (30.3-42.9); Hemoglobin 9.7 gm/dl (10.1-14.3); Mean Corpuscular HGB Conc 32 % (30-34); Mean Corpuscular Volume 71 fl (79-97); Platelet Count 206 K/mm3 (140-440); Red Blood Count 4.32 M/mm3 (3.65-5.03); Red Cell Distribution Width 22.5 % (13.2-15.2)
[2018-11-30] MEDS: LACTATED RINGERS 1,000 ML IV SCH ×2 (20:13→20:40)
[2018-11-30] MEDS ORDERED: ZOFRAN IV PRN ×2 (20:26→23:03)
[2018-11-30] MEDS ORDERED: DILAUDID IV PRN ×2 (20:26)
[2018-11-30] MEDS ORDERED: PHENERGAN PR PRN ×2 (20:26→23:03)
[2018-11-30] MEDS ORDERED: NARCAN 0.4 MG/1 ML IV PRN ×2 (20:26→23:03)
--- NOTE | 2018-11-30 20:26 | Anesthesia Day of Surgery ---
Anesthesia Day of Surgery - Day of Surgery Patient Examined: Yes Patient H&P Reviewed: Yes Patient is NPO: No
--- NOTE | 2018-11-30 20:26 | Anesthesia Consultation ---
Anesthesia Consult and Med Hx Date of service: 11/30/18 - Airway Anesthetic Teeth Evaluation: Good ROM Head & Neck: Adequate Mental/Hyoid Distance: Adequate Mallampati Class: Class II Intubation Access Assessment: Probably Good - Pulmonary Exam CTA: Yes - Cardiac Exam Cardiac Exam: RRR - Pre-Operative Health Status ASA Pre-Surgery Classification: ASA3 Proposed Anesthetic Plan: Spinal - Pulmonary Hx Smoking: Yes (quit 03/21) Hx Asthma: No COPD: No Hx Pneumonia: No - Cardiovascular System Hx Hypertension: Yes (chronic) - Central Nervous System Hx Seizures: No Hx Psychiatric Problems: No - Endocrine Hx Renal Disease: No Hx End Stage Renal Disease: No Hx Hypothyroidism: No Hx Hyperthyroidism: No - Hematic Hx Anemia: No Hx Sickle Cell Disease: No - Other Systems Hx Alcohol Use: No Hx Obesity: Yes
[2018-11-30] MEDS ORDERED: NUBAIN IV PRN (20:27)
[2018-11-30] MEDS ORDERED: SODIUM CHLORIDE FLUSH SYRINGE 10 ML IV NR ×2 (21:00→23:45)
--- NOTE | 2018-11-30 21:44 | History and Physical Report ---
History of Present Illness Date of examination: 11/30/18 Date of admission: 11/30/18 20:18 Chief complaint: SIUP at 37 weeks and 3 days gestation in early labor. Previous C/section x 2. History of present illness: Patient is a 28 year old , LMP 03/13/18, EDC 12/18/18 at 38 weeks and 3 days gestation who presented to triage complaining of having contractions. She denies any fluid leakage or bleeding. She reports good movement. Exam: stable vital signs, cervix: 3 cm/70%/-2. She had 2 previous C/sections. She has a history of chronic HTN and her BP has been stable during the . She had +GC and chlamydia during the . She was treated but MANUEL was not done. She did not do her glucose challenge test. HbA1c was 5.5. She is a smoker. 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 History: chlamydia, gonorrhea, herpes Family/Genetic History: none Social history: smoking - Obstetrical History Expected Date of Delivery: 12/18/18 Actual Gestation: 37 Week(s) 3 Day(s) : 6 Para: 5 Number of Living Children: 5 Medications and Allergies Allergies Allergy/AdvReac Type Severity Reaction Status Date / Time beeswax Allergy Swelling Verified 10/27/18 13:41 sun Allergy Swelling Uncoded 09/10/15 11:35 Home Medications Medication Instructions Recorded Confirmed Last Taken Type Ferrous Sulfate [Feosol 325 MG tab] 325 mg PO BID #60 tablet 09/03/15 10/28/18 10/27/18 Rx Vit Calc,Iron,Folic 1 each PO DAILY #30 tablet 09/03/15 10/28/18 10/27/18 Rx [ Vitamins] Albuterol Sulfate [Albuterol 0.63% 0.63 mg IH TID PRN #1 inh 10/31/18 Unknown Rx NEBS] Azithromycin [Zithromax TAB] 500 mg PO QDAY 7 Days #7 tablet 10/31/18 Unknown Rx Budesonide/Formoterol Fumarate 10.2 gm IH BID 39 Days #1 10/31/18 Unknown Rx [Symbicort 160-4.5 Mcg Inhaler] hfa.aer.ad MDD 2 INHALATIONS BID Montelukast [Singulair] 10 mg PO QPM 30 Days #30 tablet 10/31/18 Unknown Rx Peak Flow Meter [Truzone Peak Flow 1 each MC DAILY 30 Days #1 each 10/31/18 Unknown Rx Meter] predniSONE [Deltasone] 40 mg PO QDAY 5 Days #5 tab 10/31/18 Unknown Rx Active Meds: Active Medications Acetaminophen (Tylenol) 650 mg PO Q6H AMIE Stop: 12/02/18 15:01 Citric Acid/Sodium Citrate (Bicitra) 30 ml PO ONCE AMIE Stop: 12/01/18 19:56 Last Admin: 11/30/18 21:40 Dose: 30 ml Documented by: Famotidine (Pepcid) 20 mg IV ONCE AMIE Stop: 12/01/18 19:56 Last Admin: 11/30/18 21:39 Dose: 20 mg Documented by: Hydromorphone HCl (Dilaudid) 0.5 mg IV Q5M PRN PRN Reason: Breakthrough Pain Stop: 12/01/18 02:16 Hydromorphone HCl (Dilaudid) 0.5 mg IV Q4H PRN PRN Reason: breakthrough pain > 7/10 Lactated Ringer's (Lactated Ringers) 1,000 mls @ 125 mls/hr IV DIRECT AMIE Last Admin: 11/30/18 20:40 Dose: 125 mls/hr Documented by: Oxytocin/Sodium Chloride (Pitocin/Ns 20 Unit/1000ml Drip) 20 units in 1,000 mls @ 0 mls/hr IV TITR AMIE Lactated Ringer's (Lactated Ringers) 1,000 mls @ 2,250 mls/hr IV PREOP AMIE Stop: 12/01/18 20:27 Cefazolin Sodium (Ancef/Sterile Water 2 Gm/20 Ml) 2 gm in 20 mls @ 80 mls/hr IV PREOP NR; Protocol Stop: 12/01/18 19:59 Ketorolac Tromethamine (Toradol) 15 mg IV Q6HR AMIE Stop: 12/02/18 18:01 Metoclopramide HCl (Reglan) 10 mg IV ONCE AMIE Stop: 12/01/18 19:56 Last Admin: 11/30/18 21:39 Dose: 10 mg Documented by: Nalbuphine HCl (Nubain) 10 mg IV Q2H PRN PRN Reason: Pain, Moderate (4-6) Naloxone HCl (Narcan 0.4 Mg/1 Ml) 0.2 mg IV Q2MIN PRN PRN Reason: Res Rate </= 8 or 02 SAT < 92% Ondansetron HCl (Zofran) 4 mg IV Q8H PRN PRN Reason: Nausea And Vomiting Promethazine HCl (Phenergan) 25 mg PO Q6H PRN PRN Reason: Nausea And Vomiting Promethazine HCl (Phenergan) 25 mg MS Q6H PRN PRN Reason: Nausea And Vomiting Sodium Chloride (Sodium Chloride Flush Syringe 10 Ml) 10 ml IV PRN NR Stop: 12/01/18 20:59 - Vital Signs Vital signs: Vital Signs Pulse BP 97 H 122/72 11/30/18 16:07 11/30/18 16:07 Temp Pulse Resp BP Pulse Ox 98.4 F 91 H 122/62 11/30/18 19:13 11/30/18 21:03 11/30/18 21:03 - Physical Exam Cardiovascular: Normal S1, Normal S2 Lungs: Positive: Clear to auscultation Vulva: both: normal Adnexa: both: normal Deep Tendon Reflex Grade: Normal +2 - Obstetrical FHR: category 1 Uterine Contraction Monitor Mode: External Cervical Dilatation: 3 Cervical Effacement Percentage: 70 station: -2 Uterine Contraction Pattern: Irregular Uterine Contraction Intensity: Moderate Results Result Diagrams: 11/30/18 19:45 Abnormal lab results 11/30/18 11/30/18 Range/Units 16:30 19:45 Hgb 9.7 L (10.1-14.3) gm/dl MCV 71 L (79-97) fl MCH 23 L (28-32) pg RDW 22.5 H (13.2-15.2) % Urine WBC (Auto) 18.0 H (0.0-6.0) /HPF All other labs normal. Assessment and Plan - Patient Problems (1) 37 weeks gestation of Current Visit: Yes Status: Acute (2) Active labor Current Visit: Yes Status: Acute (3) Previous section Current Visit: Yes Status: Acute Plan to address problem: Admit to labor floor. Routine preop labs. IV hydration. Keep NPO. monitoring. Patient was counselled for repeat C/section. Risks, benefits, and alternatives of the procedure were discussed in detail with the patient which included but not limited to the risk of infection, hemorrhage requiring blood transfusion, injury to the bowel or bladder and blood vessels. The patient expressed understanding, her questions were answered, and she gave informed consent. Anesthesia notified. (4) Anemia Current Visit: Yes Status: Acute (5) Obesity Current Visit: Yes Status: Acute Qualifiers: Obesity type: due to excess calories
[2018-11-30] MEDS ORDERED: NACL 0.9% IR ONE (22:15)
[2018-11-30] MEDS ORDERED: WATER FOR IRRIG STERILE IR ONE (22:15)
[2018-11-30] MEDS ORDERED: TORADOL IV PRN ×2 (23:03)
[2018-11-30] MEDS ORDERED: MYLICON PO PRN (23:03)
[2018-11-30] MEDS ORDERED: SENOKOT PO PRN (23:03)
[2018-11-30] MEDS ORDERED: LANSINOH TP PRN (23:03)
[2018-11-30] MEDS ORDERED: TYLENOL PO PRN (23:03)
[2018-11-30] MEDS ORDERED: TUCKS PAD TP PRN (23:03)
[2018-11-30] MEDS ORDERED: MORPHINE IV PRN ×2 (23:03)
[2018-11-30] MEDS ORDERED: MILK OF MAGNESIA PO PRN (23:03)
[2018-11-30] MEDS ORDERED: ANUCORT-HC PR PRN (23:03)
--- NOTE | 2018-11-30 23:10 | Operative Report ---
Operative Report Operative Report: Operative Report: Preoperative diagnosis 1. SIUP at 37 weeks and 3 days gestation in labor. 2. Previous C/section x 2. Postoperative diagnosis: Same. Procedure: Repeat low-transverse section. Surgeon: Dr. Phillips Arc Welder Apprentice: none Anesthesia: epidural. IVF: RL 2000 cc EBL: 400 cc Urine: 50 cc clear Complications: none. Intraoperative findings: 1. A female infant found in an LEA position, delivered at 10:31 PM, Apgars 8 at 1 minute and 9 at 5 minutes, weight 7 lbs. 3 oz. 2. Normal fallopian tubes and ovaries bilaterally. Procedure details: Risks, benefits, and alternatives of the procedure were discussed in detail with the patient which included but not limited to the risk of infection, hemorrhage requiring blood transfusion, injury to the bowel or bladder and blood vessels. The patient expressed understanding, her questions were answered, and she gave informed consent. The patient was taken to the operating room with an IV fluid infusing Ringers lactate. In the operating room, she was placed in a sitting position and given spinal anesthesia. She was then placed in a dorsal supine position with a leftward tilt. Esquivel catheter in Venodyne boots were placed. The abdomen was washed and she was prepared and draped in usual sterile fashion. After confirming adequate anesthesia, the Pfannenstiel skin incision was made in the lower abdomen about 2 cm above the pubic symphysis using the scalpel. This incision was carried down to the underlying fascia using the Bovie. The fascia was opened bilaterally in a curvilinear fashion using the Bovie. 2 straight Kocker clamps were used to grasp the upper edge of the fascia from which the underlying rectus abdominis muscles was dissected off using the Bovie. A similar procedure was done with the lower edge of the fascia to dissect the underlying rectus abdominis muscle. The muscle was bluntly from the midline by pulling. The parietal peritoneum was grasped with 2 hemostat clamps and entered sharply using Metzenbaum scissors. A quick survey of the anatomy revealed a gravid uterus, normal fallopian tubes and ovaries bilaterally. A bladder flap was created. Clyde'O retractor was placed in the incision for proper visualization. A low transverse incision was made in the lower uterine segment using the scalpel and extended bilaterally in a curvilinear fashion using bandage scissors. There was copious amount of clear amniotic fluids. The infant was found in an LEA position, the head was delivered atraumatically followed by the delivery of the shoulders and the rest of the body at 10:31 PM. The cord was clamped 2 and cut and the was handed off to the waiting marine safety officer. The infant was a female, Apgars were 8 at 1 minute and 9 at 5 minutes, weight was 7 pounds and 3 ounces. Cord blood was collected. The placenta was delivered manually and it was complete with a three-vessel cord. The uterine cavity was cleaned of clots and debris using dry lap sponges. The uterine incision was repaired in a running locked fashion using 0 Vicryl sutures. A second layer of imbrication was placed. The gutters were cleaned of clots and debris using dry lap sponges. After confirming adequate hemostasis, the instruments were removed from the abdominal cavity. The rectus muscle was reapproximated in an interrupted fashion using 0 Vicryl sutures. The fascia was closed in a running fashion using 0 Vicryl sutures. The subcutaneous adipose layer was closed with 0 vicryl. The skin was closed with janes. Sterile dressing was placed. The counts of laps, needles, sponges, and instruments were correct 2. The patient tolerated the procedure well, she was taken to the recovery room in a stable condition.
[2018-11-30] MEDS ORDERED: ZOFRAN ONE (23:21)
[2018-11-30] MEDS ORDERED: NEO SYNEPHRINE/NS Syringe(OR USE) IV ONE (23:21)
--- NOTE | 2018-11-30 23:21 | Post Anesthesia Evaluation ---
- Post Anesthesia Evaluation Patient Participated: Yes Airway Patent: Yes Stable Respiratory Function: Yes Nausea/Vomiting: No Temp > 96.8F: Yes Pain Manageable: Yes Adequeate Hydration: Yes Anesthesia Complications: No Block Receding Appropriately: Yes
[2018-12-01] MEDS ORDERED: TORADOL IV SCH
[2018-12-01] MEDS: LACTATED RINGERS 1,000 ML IV SCH (00:37)
[2018-12-01] MEDS: TYLENOL PO SCH ×2 (04:19→15:34)
[2018-12-01] MEDS: FEOSOL PO SCH (10:57)
[2018-12-01] MEDS: PRENATAL VITAMIN PO SCH (10:57)
[2018-12-01 12:08] LABS: Hematocrit 28.4 % (30.3-42.9); Hemoglobin 9.3 gm/dl (10.1-14.3)
--- NOTE | 2018-12-01 12:23 | Progress Note ---
Assessment and Plan - Patient Problems (1) S/P repeat low transverse Current Visit: Yes Status: Acute Plan to address problem: PPD - unstable Continue routine postop orders Discontinue ca catheter and IV hydration per protocol Ambulation encouraged, as tolerated Anticipate discharge in 24-48 hours (2) Unproductive cough Current Visit: Yes Status: Acute Plan to address problem: Advised pt to use her Incentive spirometer as directed Encouraged splinting when coughing. Instructions given (3) Anemia due to blood loss, acute Current Visit: Yes Status: Acute Plan to address problem: Asymptomatic Continue iron therapy Subjective - Subjective Date of service: 12/01/18 Principal diagnosis: POD #1; s/p Repeat LTCS Interval history: see H&P and Operative Report Patient reports: appetite normal, other (reports nonproductive cough post c/s. Denies SOB, palpitations, dizziness or lightheadedness. Incentive spirometer at bedside. Sequential compression device in place. Ca catheter in place due to oliguria) [place]: doing well, bottle feeding Objective - Vital Signs Latest vital signs: Vital Signs Temp Pulse Resp BP BP Pulse Ox 12/01/18 09:10 98.2 F 72 18 118/88 12/01/18 06:57 20 12/01/18 06:30 97.7 F 97 H 18 113/75 95 12/01/18 01:28 97.9 F 86 18 102/62 99 12/01/18 00:55 97.9 F 81 20 128/69 98 12/01/18 00:45 85 21 119/76 100 12/01/18 00:35 77 23 125/67 100 12/01/18 00:25 76 22 87/40 99 12/01/18 00:15 97.7 F 82 20 102/59 98 12/01/18 00:13 18 12/01/18 00:00 83 20 98/41 97 11/30/18 23:45 84 19 89/48 96 11/30/18 23:30 82 20 95/41 96 11/30/18 23:25 84 20 91/32 95 11/30/18 23:20 84 19 86/37 94 11/30/18 23:15 97.6 F 87 20 87/34 95 11/30/18 21:03 91 H 122/62 11/30/18 20:06 86 112/52 11/30/18 19:13 98.4 F 11/30/18 19:08 92 H 111/58 11/30/18 16:07 97 H 122/72 Intake and Output 11/30/18 12/01/18 12/01/18 23:59 07:59 15:59 Intake Total 2056.25 841.25 320 Output Total 25 250 Balance 2031.25 591.25 320 Intake: IV 2056.25 481.25 Lactated Ringers 1,000 ml 56.25 481.25 @ 125 mls/hr IV DIRECT AMIE Rx#:[id number] Oral 320 Intake, Free Water 360 Output: Urine 25 250 Indwelling Catheter 250 Other: Total, Intake Amount 320 Total, Output Amount 250 Weight 135.171 kg Estimated Blood Loss 400 - Exam Cardiovascular: Present: Regular rate Lungs: Present: Clear to auscultation Abdomen: Present: normal appearance, soft Vulva: both: normal Uterus: Present: normal, firm, fundal height at umbilicus Incision: Present: normal, dry, dressed Comments: small lochia - Labs Labs: Abnormal lab results 11/30/18 11/30/18 12/01/18 Range/Units 16:30 19:45 11:46 Hgb 9.7 L 9.3 L (10.1-14.3) gm/dl Hct 28.4 L (30.3-42.9) % MCV 71 L (79-97) fl MCH 23 L (28-32) pg RDW 22.5 H (13.2-15.2) % Urine WBC (Auto) 18.0 H (0.0-6.0) /HPF
[2018-12-01] MEDS: PERCOCET 5/325 PO PRN ×2 (14:49→20:48)
[2018-12-01] MEDS: IBUPROFEN PO PRN (20:48)
[2018-12-02] MEDS: PHENERGAN PO PRN ×2 (01:16→23:12)
[2018-12-02] MEDS: IBUPROFEN PO PRN ×3 (05:37→23:08)
[2018-12-02] MEDS: PERCOCET 5/325 PO PRN ×3 (05:37→23:09)
[2018-12-02] MEDS: FEOSOL PO SCH (11:34)
[2018-12-02] MEDS: PRENATAL VITAMIN PO SCH (11:34)
--- NOTE | 2018-12-02 12:32 | Progress Note ---
Assessment and Plan - Patient Problems (1) S/P repeat low transverse Current Visit: Yes Status: Acute Plan to address problem: Continue routine PP orders Anticipate d/c home in 24 hrs (2) Anemia Current Visit: Yes Status: Acute Qualifiers: Anemia type: iron deficiency Iron deficiency anemia type: inadequate dietar y iron intake Qualified Code(s): D50.8 - Other iron deficiency anemias Plan to address problem: Continue daily oral iron supplementation (3) Obesity Current Visit: Yes Status: Acute Qualifiers: Obesity type: due to excess calories (4) Unproductive cough Current Visit: Yes Status: Acute Plan to address problem: Tessalon pearls 100mg po q 8hrs prn for cough Subjective - Subjective Date of service: 12/02/18 Principal diagnosis: POD #2; s/p Repeat LTCS Interval history: See admission H & P, OB operative report and PP progress notes Patient reports: appetite normal, voiding normally, pain well controlled, flatus, ambulating normally, no bowel movement : doing well, bottle feeding Objective - Vital Signs Latest vital signs: Vital Signs Temp Pulse Resp BP BP Pulse Ox 12/02/18 07:40 98.2 F 98 H 18 113/66 12/02/18 05:37 20 12/02/18 00:14 98.4 F 101 H 20 111/69 93 12/01/18 20:50 99.2 F 106 H 20 116/72 96 12/01/18 20:48 20 12/01/18 16:10 98.3 F 100 H 20 124/73 Intake and Output 12/01/18 12/02/18 12/02/18 23:59 07:59 15:59 Intake Total 120 600 Output Total 600 800 Balance -480 -200 Intake: Oral 120 600 Output: Urine 600 800 Void 600 800 Other: Total, Intake Amount 120 480 Total, Output Amount 400 800 # Voids Void 1 1 - Exam Breasts: Present: deferred Cardiovascular: Present: Regular rate Lungs: Present: Normal air movement Abdomen: Present: soft, tenderness, normal bowel sounds Uterus: Present: firm, fundal height below umbilicus (U-1) Deep Tendon Reflex Grade: Normal +2 Incision: Present: dressed (no shadow draining or bleeding noted)
[2018-12-02] MEDS: TESSALON PERLES PO SCH ×2 (14:00→21:55)
[2018-12-03] MEDS: TESSALON PERLES PO SCH (05:41)
[2018-12-03] MEDS ORDERED: DEPO-PROVERA (CONTRACEPTION) IM ONE (11:27)
--- NOTE | 2018-12-03 11:27 | Progress Note ---
Assessment and Plan A: POD #3 Asymtomatic Anemia P: Follow Routine Orders FeSO4 325mg PO BID D/C home today Depo Provera 150mg IM x 1 dose prior to discharge RTO in one Week Subjective - Subjective Date of service: 12/03/18 Principal diagnosis: POD #2; s/p Repeat LTCS Patient reports: appetite normal, voiding normally, pain well controlled, flatus, ambulating normally : doing well, bottle feeding Objective - Vital Signs Latest vital signs: Vital Signs Temp Pulse Resp BP BP Pulse Ox 12/03/18 08:06 98.7 F 95 H 18 122/83 97 12/03/18 00:50 99.2 F 95 H 20 136/76 96 12/02/18 23:09 20 12/02/18 23:08 20 12/02/18 16:43 98.1 F 105 H 18 122/81 12/02/18 15:45 20 Intake and Output 12/02/18 12/03/18 12/03/18 22:59 06:59 14:59 Intake Total 480 480 Balance 480 480 Intake: Oral 480 480 Other: Total, Intake Amount 480 240 # Voids Void 1 - Exam Breasts: Present: normal Cardiovascular: Present: Regular rate Lungs: Present: Clear to auscultation, Normal air movement Abdomen: Present: normal appearance, soft, normal bowel sounds Uterus: Present: normal, firm, fundal height below umbilicus Extremities: Present: normal Incision: Present: normal, dry, intact
--- NOTE | 2018-12-03 11:28 | Discharge Summary ---
Providers - Providers Date of Admission: 11/30/18 20:18 Date of discharge: 12/03/18 Attending physician: YOLANDE SUTTON MD Primary care physician: YOLANDE SUTTON MD Hospitalization Reason for admission: section Delivery: Procedure: repeat low transverse Episiotomy: none Laceration: none Incision: normal, dry, intact Other procedures: none complications: none Discharge diagnosis: IUP at term delivered [place] baby: female Condition at discharge: Good Disposition: DC-01 TO HOME OR SELFCARE Plan - Discharge Medications Prescriptions: Ibuprofen [Motrin] 800 mg PO Q8HR PRN #30 tablet PRN Reason: Pain, Moderate (4-6) oxyCODONE /ACETAMINOPHEN [Percocet 5/325] 1 tab PO Q4HR #20 tab - Provider Discharge Summary Activity: routine, no sex for 6 weeks, no heavy lifting 4 weeks, no strenuous exercise Diet: routine Instructions: routine Additional instructions: [] Smoking cessation referral if applicable(refer to patient education folder for contact #) [] Refer to [facility] Booklet Call your doctor immediately for: * Fever > 100.5 * Heavy vaginal bleeding ( >1 pad per hour) * Severe persistent headache * Shortness of breath * Reddened, hot, painful area to leg or breast * Drainage or odor from incision. * Keep incision clean and dry at all times and follow doctor's instructions regarding bathing/showering - Follow up plan Follow up: YOLNADE SUTTON MD [Primary Care Provider] - 7 Days
[2018-12-03] MEDS: IBUPROFEN PO PRN (11:39)
[2018-12-03] MEDS: FEOSOL PO SCH (11:39)
[2018-12-03] MEDS: PRENATAL VITAMIN PO SCH (11:40)
[2018-12-03] MEDS: PERCOCET 5/325 PO PRN (11:40)
[2018-12-03 19:11] VITALS: BP 128/76
== END 2018-12-03 13:00 | disposition home or self-care (01) | DRG 765 ==
LOC: TRG 15:48 → APU 20:18 → OB 12-01 01:14
PROVIDERS: ADMIT Obstetrics & Gynecology; ATTEND Obstetrics & Gynecology
PROC: 10D00Z1 Extraction of Products of Conception, Low, Open Approach (ICD-10-PCS; principal; 2018-11-30)
DX: O34.211 Maternal care for low transverse scar from previous cesarean delivery (principal); D62 Acute posthemorrhagic anemia; O10.92 Unspecified pre-existing hypertension complicating childbirth; Z3A.37 37 weeks gestation of pregnancy; Z37.0 Single live birth; E66.01 Morbid (severe) obesity due to excess calories; Z71.3 Dietary counseling and surveillance; O90.81 Anemia of the puerperium; Z91.048 Other nonmedicinal substance allergy status; Z87.891 Personal history of nicotine dependence
CPT/HCPCS: 36415; 59025; 81001; 85014; 85018; 85027; 86592; 86850; 86900; 86901; 87086; G0378; J0690; J1170; J1885; J2370; J2405; J2590; J2765; J3490; J7120; Q0169

== ENCOUNTER 2019-04-12 04:12 | Emergency (ER) | payer MEDICAID ==
[2019-04-12] MEDS ORDERED: IPRATROPIUM 0.02% NEBU 2.5 ML IH ONE ×2 (04:20→04:26)
[2019-04-12] MEDS ORDERED: ALBUTEROL 2.5 MG/3 ML NEBU IH ONE ×2 (04:20→04:26)
[2019-04-12 05:21] LABS: Basophils % (Auto) 0.3 % (0.0-1.8); Eosinophils # (Auto) 0.2 K/mm3 (0.0-0.4); Eosinophils % (Auto) 3.3 % (0.0-4.3); Hematocrit 36.6 % (30.3-42.9); Hemoglobin 11.8 gm/dl (10.1-14.3); Lymphocytes # (Auto) 1.7 K/mm3 (1.2-5.4); Lymphocytes % (Auto) 30.1 % (13.4-35.0); Mean Corpuscular HGB Conc 32 % (30-34); Mean Corpuscular Volume 82 fl (79-97); Monocytes # (Auto) 0.5 K/mm3 (0.0-0.8); Monocytes % (Auto) 9.4 % (0.0-7.3); Platelet Count 221 K/mm3 (140-440); Red Blood Count 4.47 M/mm3 (3.65-5.03); Red Cell Distribution Width 16.3 % (13.2-15.2)
--- NOTE | 2019-04-12 05:27 | XRay Report ---
CHEST 1 VIEW INDICATION / CLINICAL INFORMATION: Dyspnea. COMPARISON: 10/28/2018 FINDINGS: SUPPORT DEVICES: None. HEART / MEDIASTINUM: No significant abnormality. LUNGS / PLEURA: No significant pulmonary or pleural abnormality. No pneumothorax. ADDITIONAL FINDINGS: No significant additional findings. IMPRESSION: 1. No acute findings. No interval change. Signer Name: Emilia Cadet MD Signed: 04/12/2019 5:23 AM Workstation Name: [id number]
[2019-04-12] MEDS ORDERED: predniSONE 20 MG TAB PO ONE (06:15)
[2019-04-12] MEDS ORDERED: DOXYCYCLINE 100 MG CAPSULE PO ONE (06:17)
[2019-04-12 06:33] LABS: Creatine Kinase MB 1.4 ng/mL (0.0-4.0)
[2019-04-12 06:37] LABS: Alanine Aminotransferase 17 units/L (7-56); Albumin 4.2 g/dL (3.9-5); BUN/Creatinine Ratio 15; Blood Urea Nitrogen 9 mg/dL (7-17); Calcium 8.6 mg/dL (8.4-10.2); Hemolysis Index 0
--- NOTE | 2019-04-12 07:07 | Emergency Department Report ---
- General Chief Complaint: Dyspnea/Respdistress Stated Complaint: COUGHING, WHEEZING, EAR INFECTION AND BACK PAINS Time Seen by Provider: 04/12/19 06:14 Source: patient, old records reviewed Mode of arrival: Ambulatory Limitations: No Limitations - History of Present Illness Initial Comments: CC: "I have a chest cold and an ear infection." HPI: Nyasia is a 29 yo female with hx of anemia, HTN, bronchitis who presents with shortness of breath, wheezing, cough and left ear pain. Her symptoms began 2 days ago. Her daughter is also sick at home. She denies fever. She has nonproductive cough. Last year she was diagnosed with ear infection. In March while she was diagnosed with bronchitis. She was encouraged to stop smoking. Since that time she's had 2 previous ED visits requiring bronchodilator treatment and prednisone therapy. . She does not have a primary care physician. She has been waiting for several months for a pulmonology referral by her automobile racer. She came by private auto. She feels much improved after receiving albuterol and Atrovent here in the emergency department. She has mild left ear pain without radiation. NO drainage. No tra dori to the ear. States she has not smoked cigarettes since March 1 year ago. However her significant other does smoke tobacco in her presence. MD Complaint: cough, other (ear pain wheezing shortness of breath) -: Gradual, days(s) (2) Severity: moderate Consistency: now resolved Improves With: other (bronchodilator therapy) Worsens With: other (exertion activity) Context: sick contacts Associated Symptoms: denies other symptoms, cough, shortness of breath, other (wheezing left ear pain) - Related Data Previous Rx's Medication Instructions Recorded Last Taken Type Ferrous Sulfate [Feosol 325 MG tab] 325 mg PO BID #60 tablet 09/03/15 10/27/18 Rx Vit Calc,Iron,Folic 1 each PO DAILY #30 tablet 09/03/15 10/27/18 Rx [ Vitamins] Albuterol Sulfate [Albuterol 0.63% 0.63 mg IH TID PRN #1 inh 10/31/18 Unknown Rx NEBS] Azithromycin [Zithromax TAB] 500 mg PO QDAY 7 Days #7 tablet 10/31/18 Unknown Rx Budesonide/Formoterol Fumarate 10.2 gm IH BID 39 Days #1 10/31/18 Unknown Rx [Symbicort 160-4.5 Mcg Inhaler] hfa.aer.ad MDD 2 INHALATIONS BID Montelukast [Singulair] 10 mg PO QPM 30 Days #30 tablet 10/31/18 Unknown Rx Peak Flow Meter [Truzone Peak Flow 1 each MC DAILY 30 Days #1 each 10/31/18 Unknown Rx Meter] predniSONE [Deltasone] 40 mg PO QDAY 5 Days #5 tab 10/31/18 Unknown Rx Ibuprofen [Motrin] 800 mg PO Q8HR PRN #30 tablet 12/02/18 Unknown Rx oxyCODONE /ACETAMINOPHEN [Percocet 1 tab PO Q4HR #20 tab 12/02/18 Unknown Rx 5/325] ALBUTEROL Inhaler (OR & NICU) 2 puff IH QID PRN #8.5 gram 04/12/19 Unknown Rx [ProAir HFA Inhaler] Doxycycline Hyclate [Doxycycline 100 mg PO Q12HR 10 Days #20 tab 04/12/19 Unknown Rx Hyclate TAB] Fluconazole [Diflucan TAB] 150 mg PO ONCE #1 tablet 04/12/19 Unknown Rx Loratadine [Claritin] 10 mg PO DAILY 30 Days #30 tablet 04/12/19 Unknown Rx predniSONE [Deltasone] 3 tab PO QDAY 3 Days #9 tab 04/12/19 Unknown Rx Allergies Allergy/AdvReac Type Severity Reaction Status Date / Time beeswax Allergy Swelling Verified 10/27/18 13:41 sun Allergy Swelling Uncoded 09/10/15 11:35 ED Review of Systems ROS: Stated complaint: COUGHING, WHEEZING, EAR INFECTION AND BACK PAINS Other details as noted in HPI Comment: All other systems reviewed and negative Constitutional: malaise ENT: ear pain Respiratory: shortness of breath, wheezing ED Past Medical Hx - Past Medical History Previous Medical History?: Yes Hx Hypertension: Yes (chronic) Hx Congestive Heart Failure: No Hx Diabetes: No Hx Deep Vein Thrombosis: No Hx Renal Disease: No Hx Sickle Cell Disease: No Hx Seizures: No Hx Asthma: No Hx COPD: No Hx HIV: No Additional medical history: anemia - Surgical History Past Surgical History?: Yes Additional Surgical History: csection X 2 - Social History Smoking Status: Former Smoker Substance Use Type: None - Medications Home Medications: Home Medications Medication Instructions Recorded Confirmed Last Taken Type Ferrous Sulfate [Feosol 325 MG tab] 325 mg PO BID #60 tablet 09/03/15 12/01/18 10/27/18 Rx Vit Calc,Iron,Folic 1 each PO DAILY #30 tablet 09/03/15 12/01/18 10/27/18 Rx [ Vitamins] Albuterol Sulfate [Albuterol 0.63% 0.63 mg IH TID PRN #1 inh 10/31/18 12/01/18 Unknown Rx NEBS] Azithromycin [Zithromax TAB] 500 mg PO QDAY 7 Days #7 tablet 10/31/18 12/01/18 Unknown Rx Budesonide/Formoterol Fumarate 10.2 gm IH BID 39 Days #1 10/31/18 12/01/18 Unknown Rx [Symbicort 160-4.5 Mcg Inhaler] hfa.aer.ad MDD 2 INHALATIONS BID Montelukast [Singulair] 10 mg PO QPM 30 Days #30 tablet 10/31/18 12/01/18 Unknown Rx Peak Flow Meter [Truzone Peak Flow 1 each MC DAILY 30 Days #1 each 10/31/18 12/01/18 Unknown Rx Meter] predniSONE [Deltasone] 40 mg PO QDAY 5 Days #5 tab 10/31/18 12/01/18 Unknown Rx Ibuprofen [Motrin] 800 mg PO Q8HR PRN #30 tablet 12/02/18 Unknown Rx oxyCODONE /ACETAMINOPHEN [Percocet 1 tab PO Q4HR #20 tab 12/02/18 Unknown Rx 5/325] ALBUTEROL Inhaler (OR & NICU) 2 puff IH QID PRN #8.5 gram 04/12/19 Unknown Rx [ProAir HFA Inhaler] Doxycycline Hyclate [Doxycycline 100 mg PO Q12HR 10 Days #20 tab 04/12/19 Unknown Rx Hyclate TAB] Fluconazole [Diflucan TAB] 150 mg PO ONCE #1 tablet 04/12/19 Unknown Rx Loratadine [Claritin] 10 mg PO DAILY 30 Days #30 tablet 04/12/19 Unknown Rx predniSONE [Deltasone] 3 tab PO QDAY 3 Days #9 tab 04/12/19 Unknown Rx ED Physical Exam - General Limitations: No Limitations General appearance: alert, in no apparent distress, other (frequent cough) - Head Head exam: Present: atraumatic, normocephalic - Eye Eye exam: Present: normal appearance - ENT ENT exam: Present: mucous membranes moist, other (right TM within normal limits, left TM bulging and erythematous with opaque effusion) - Neck Neck exam: Present: normal inspection - Respiratory Respiratory exam: Present: normal lung sounds bilaterally. Absent: respiratory distress, wheezes, rales, rhonchi, chest wall tenderness, accessory muscle use, decreased breath sounds, prolonged expiratory - Cardiovascular Cardiovascular Exam: Present: regular rate, normal rhythm, normal heart sounds. Absent: systolic murmur, diastolic murmur, rubs, gallop - GI/Abdominal GI/Abdominal exam: Present: soft, normal bowel sounds. Absent: distended, tenderness, guarding, rebound - Extremities Exam Extremities exam: Present: normal inspection - Back Exam Back exam: Present: normal inspection - Neurological Exam Neurological exam: Present: alert, oriented X3 - Psychiatric Psychiatric exam: Present: normal affect, normal mood - Skin Skin exam: Present: warm, dry, intact, normal color. Absent: rash ED Course Vital Signs 04/12/19 04/12/19 04/12/19 04:29 04:30 04:36 Pulse Rate 107 H Pulse Rate [ 98 H Bilateral] Respiratory 14 12 Rate Respiratory 22 Rate [Bilateral ] Blood Pressure 124/77 Blood Pressure [Left] O2 Sat by Pulse Oximetry 04/12/19 04/12/19 04/12/19 04:46 05:00 05:16 Pulse Rate 103 H 108 H 101 H Pulse Rate [ Bilateral] Respiratory 25 H 29 H 25 H Rate Respiratory Rate [Bilateral ] Blood Pressure 124/77 125/68 125/68 Blood Pressure [Left] O2 Sat by Pulse 99 99 98 Oximetry 04/12/19 04/12/19 04/12/19 05:30 05:46 06:00 Pulse Rate 99 H 105 H 116 H Pulse Rate [ Bilateral] Respiratory 26 H 25 H 13 Rate Respiratory Rate [Bilateral ] Blood Pressure 125/68 125/68 125/68 Blood Pressure [Left] O2 Sat by Pulse 98 96 95 Oximetry 04/12/19 04/12/19 06:30 06:46 Pulse Rate 116 H 112 H Pulse Rate [ Bilateral] Respiratory 31 H 18 Rate Respiratory Rate [Bilateral ] Blood Pressure 120/72 Blood Pressure 102/52 [Left] O2 Sat by Pulse 95 100 Oximetry ED Medical Decision Making - Lab Data Result diagrams: 04/12/19 Unknown 04/12/19 05:49 Laboratory Results - last 24 hr 04/12/19 04/12/19 04/12/19 05:49 05:49 Unknown WBC 5.6 RBC 4.47 Hgb 11.8 Hct 36.6 MCV 82 MCH 26 L MCHC 32 RDW 16.3 H Plt Count 221 Lymph % (Auto) 30.1 Bates % (Auto) 9.4 H Eos % (Auto) 3.3 Baso % (Auto) 0.3 Lymph # 1.7 Bates # 0.5 Eos # 0.2 Baso # 0.0 Seg Neutrophils % 56.9 Seg Neutrophils # 3.2 Sodium 142 Potassium 3.7 Chloride 106.5 Carbon Dioxide 21 L Anion Gap 18 BUN 9 Creatinine 0.6 L Estimated GFR > 60 BUN/Creatinine Ratio 15 Glucose 123 H Calcium 8.6 Total Bilirubin 0.60 AST 18 ALT 17 Alkaline Phosphatase 85 Total Creatine Kinase 283 H CK-MB (CK-2) 1.4 CK-MB (CK-2) Rel Index 0.4 Troponin T < 0.010 Total Protein 7.5 Albumin 4.2 Albumin/Globulin Ratio 1.3 - EKG Data EKG shows normal: sinus rhythm, axis, intervals, QRS complexes, ST-T waves Rate: normal - EKG Data Interpretation: no acute changes, normal EKG - Radiology Data Radiology results: report reviewed Chest radiograph according to radiology report: No acute changes no acute findings - Medical Decision Making Ms. Dugan has left otitis media. Concern for recurrent bronchitis due to smoke exposure vs asthma. Strongly recommended obtaining primary care provider. She is insured. 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 Prescriptions provided for prednisone doxycycline albuterol and Claritin. Critical care attestation.: If time is entered above; I have spent that time in minutes in the direct care of this critically ill patient, excluding procedure time. ED Disposition Clinical Impression: Left otitis media with effusion, Acute bronchitis Disposition: DC-01 TO HOME OR SELFCARE Is pt being admited?: No Does the pt Need Aspirin: No Condition: Stable Instructions: Acute Bronchitis (ED), Otitis Media (ED) Prescriptions: Loratadine [Claritin] 10 mg PO DAILY 30 Days #30 tablet predniSONE [Deltasone] 3 tab PO QDAY 3 Days #9 tab Fluconazole [Diflucan TAB] 150 mg PO ONCE #1 tablet Doxycycline Hyclate [Doxycycline Hyclate TAB] 100 mg PO Q12HR 10 Days #20 tab ALBUTEROL Inhaler (OR & NICU) [ProAir HFA Inhaler] 2 puff IH QID PRN #8.5 gram PRN Reason: Shortness Of Breath Referrals: [facility] [Outside] - 3-5 Days IVON HAWKINS MD [Staff Physician] - 3-5 Days Forms: Work/School Release Form(ED)
[2019-04-12 07:56] VITALS: BP 109/57
== END 2019-04-12 07:57 | disposition home or self-care (01) ==
LOC: ED 04:12
DX: J20.9 Acute bronchitis, unspecified (principal); H65.92 Unspecified nonsuppurative otitis media, left ear; I10 Essential (primary) hypertension; Z87.891 Personal history of nicotine dependence; Z91.030 Bee allergy status; Z91.048 Other nonmedicinal substance allergy status; Z79.899 Other long term (current) drug therapy
CPT/HCPCS: 36415; 71045; 80053; 82550; 82553; 84484; 85025; 93005; 93010; 94644; 99284; J7512

== ENCOUNTER 2020-09-18 04:38 | Outpatient (CLI) | payer MEDICAID ==
[2020-09-18 05:04] VITALS: BP 115/75
[2020-09-18] MEDS ORDERED: LACTATED RINGERS 500 ML IV ONE (05:05)
[2020-09-18] MEDS ORDERED: ACETAMINOPHEN 500 MG TAB PO ONE (05:23)
== END 2020-09-18 05:50 | disposition home or self-care (01) ==
LOC: TRG 04:38 → APU 04:39 → TRG 05:50
PROVIDERS: ATTEND Obstetrics & Gynecology
DX: O26.892 Other specified pregnancy related conditions, second trimester (principal); M54.5 Low back pain; Z3A.20 20 weeks gestation of pregnancy
CPT/HCPCS: 59025

== ENCOUNTER 2020-12-13 19:27 | Emergency (ER) | payer MEDICAID ==
[2020-12-13] MEDS ORDERED: ALBUTEROL 2.5 MG/3 ML NEBU IH ONE (20:13)
[2020-12-13] MEDS ORDERED: IPRATROPIUM 0.02% NEBU 2.5 ML IH ONE (20:13)
[2020-12-13] MEDS ORDERED: dexAMETHasone 20 MG/5 ML VIAL IV ONE (20:13)
--- NOTE | 2020-12-13 20:14 | Event Note ---
ED Screening Note ED Screening Note: Patient presents for asthma exacerbation that began earlier today She has associated wheezing, shortness of breath, chest tightness, dry cough She denies any productive cough, fever, nausea, vomiting, diarrhea She states that she is used her nebulizer machine twice today and her inhaler once but continues to have shortness of breath and wheezing Also has a past medical history of a PE in 2019 and is currently on Lovenox She is 36 weeks , she denies any abdominal pain or vaginal bleeding This initial assessment/diagnostic orders/clinical plan/treatment(s) is/are subject to change based on patients health status, clinical progression and re- assessment by fellow clinical providers in the ED. Further treatment and workup at subsequent clinical providers discretion. Patient/guardian urged not to elope from the ED as their condition may be serious if not clinically assessed and managed. Initial orders include: meds
[2020-12-13 20:19] VITALS: BP 143/73
--- NOTE | 2020-12-13 20:28 | Emergency Department Report ---
ED General Adult HPI - General Chief complaint: Adult Asthma Stated complaint: ASTHMA Time Seen by Provider: 12/13/20 20:13 Source: patient Mode of arrival: Wheelchair Limitations: No Limitations - History of Present Illness Initial comments: 30-year-old female (36 weeks gestation) patient with history of asthma and pulmonary embolism presents to the emergency department with complaints of cough, wheezing, and shortness of breath starting today. Patient has been using her beta agonist inhaler with limited relief. No known sick contacts. No current steroid or antibiotic use. No recent travel. Denies fever, chills, palpitations, syncope, hemoptysis, lower extremity pain/swelling. Denies all other complaints at this time. - Related Data Previous Rx's Medication Instructions Recorded Last Taken Type Ferrous Sulfate [Feosol 325 MG tab] 325 mg PO BID #60 tablet 09/03/15 10/27/18 Rx Vit Calc,Iron,Folic 1 each PO DAILY #30 tablet 09/03/15 10/27/18 Rx [ Vitamins] Albuterol Sulfate [Albuterol 0.63% 0.63 mg IH TID PRN #1 inh 10/31/18 Unknown Rx NEBS] Azithromycin [Zithromax TAB] 500 mg PO QDAY 7 Days #7 tablet 10/31/18 Unknown Rx Budesonide/Formoterol Fumarate 10.2 gm IH BID 39 Days #1 10/31/18 Unknown Rx [Symbicort 160-4.5 Mcg Inhaler] hfa.aer.ad MDD 2 INHALATIONS BID Montelukast [Singulair] 10 mg PO QPM 30 Days #30 tablet 10/31/18 Unknown Rx Peak Flow Meter [Truzone Peak Flow 1 each MC DAILY 30 Days #1 each 10/31/18 Unknown Rx Meter] predniSONE [Deltasone] 40 mg PO QDAY 5 Days #5 tab 10/31/18 Unknown Rx Ibuprofen [Motrin] 800 mg PO Q8HR PRN #30 tablet 12/02/18 Unknown Rx oxyCODONE /ACETAMINOPHEN [Percocet 1 tab PO Q4HR #20 tab 12/02/18 Unknown Rx 5/325] Albuterol Mdi (or & Nicu Only) 2 puff IH QID PRN #8.5 gram 04/12/19 Unknown Rx [ProAir HFA Inhaler] Doxycycline Hyclate [Doxycycline 100 mg PO Q12HR 10 Days #20 tab 04/12/19 Unknown Rx Hyclate TAB] Fluconazole (Nf) [Diflucan TAB] 150 mg PO ONCE #1 tablet 04/12/19 Unknown Rx Loratadine (Nf) [Claritin] 10 mg PO DAILY 30 Days #30 tablet 04/12/19 Unknown Rx predniSONE [Deltasone] 3 tab PO QDAY 3 Days #9 tab 04/12/19 Unknown Rx Albuterol Sulfate [Proair 90 mcg IH Q4H #1 aer.pow.ba 12/13/20 Unknown Rx Respiclick] predniSONE [Deltasone] 20 mg PO QDAY 5 Days tab 12/13/20 Unknown Rx Allergies Allergy/AdvReac Type Severity Reaction Status Date / Time beeswax Allergy Swelling Verified 10/27/18 13:41 sun Allergy Swelling Uncoded 09/10/15 11:35 ED Review of Systems ROS: Stated complaint: ASTHMA Other details as noted in HPI Other: GENERAL: Negative for fever, chills, weight change, anorexia, fatigue. ENT: Negative for ear pain, difficulty hearing, sore throat, nasal congestion, epistaxis. CARDIOVASCULAR: Negative for chest pain, palpitations, lower extremity swelling. PULMONARY: Positive for cough, wheezing, shortness of breath. GASTROINTESTINAL: Negative for abdominal pain, nausea, vomiting, diarrhea, constipation. MUSCULOSKELETAL: Negative for joint pain, joint swelling, myalgias, back pain, neck pain. NEUROLOGICAL: Negative for headache, seizure, syncope, paresthesias, weakness. INTEGUMENTARY: Negative for erythema, rash, diaphoresis, laceration, ecchymosis. HEMATOLOGICAL: Negative for hemoptysis, hematemesis, hematochezia, hematuria. PSYCHIATRIC: Negative for hallucinations, suicidal ideation, homicidal ideation, anxiety, depression. ED Past Medical Hx - Past Medical History Hx Hypertension: Yes Hx Congestive Heart Failure: No Hx Diabetes: No Hx Deep Vein Thrombosis: No Hx Pulmonary Embolism: Yes (2019 on Lovenox) Hx Renal Disease: No Hx Sickle Cell Disease: No Hx Seizures: No Hx Asthma: Yes Hx COPD: No Hx HIV: No Additional medical history: anemia - Surgical History Past Surgical History?: Yes Additional Surgical History: csection X 2 - Social History Smoking Status: Former Smoker Substance Use Type: None - Medications Home Medications: Home Medications Medication Instructions Recorded Confirmed Last Taken Type Ferrous Sulfate [Feosol 325 MG tab] 325 mg PO BID #60 tablet 09/03/15 12/01/18 10/27/18 Rx Vit Calc,Iron,Folic 1 each PO DAILY #30 tablet 09/03/15 12/01/18 10/27/18 Rx [ Vitamins] Albuterol Sulfate [Albuterol 0.63% 0.63 mg IH TID PRN #1 inh 10/31/18 12/01/18 Unknown Rx NEBS] Azithromycin [Zithromax TAB] 500 mg PO QDAY 7 Days #7 tablet 10/31/18 12/01/18 Unknown Rx Budesonide/Formoterol Fumarate 10.2 gm IH BID 39 Days #1 10/31/18 12/01/18 Unknown Rx [Symbicort 160-4.5 Mcg Inhaler] hfa.aer.ad MDD 2 INHALATIONS BID Montelukast [Singulair] 10 mg PO QPM 30 Days #30 tablet 10/31/18 12/01/18 Unknown Rx Peak Flow Meter [Truzone Peak Flow 1 each MC DAILY 30 Days #1 each 10/31/18 12/01/18 Unknown Rx Meter] predniSONE [Deltasone] 40 mg PO QDAY 5 Days #5 tab 10/31/18 12/01/18 Unknown Rx Ibuprofen [Motrin] 800 mg PO Q8HR PRN #30 tablet 12/02/18 Unknown Rx oxyCODONE /ACETAMINOPHEN [Percocet 1 tab PO Q4HR #20 tab 12/02/18 Unknown Rx 5/325] Albuterol Mdi (or & Nicu Only) 2 puff IH QID PRN #8.5 gram 04/12/19 Unknown Rx [ProAir HFA Inhaler] Doxycycline Hyclate [Doxycycline 100 mg PO Q12HR 10 Days #20 tab 04/12/19 Unknown Rx Hyclate TAB] Fluconazole (Nf) [Diflucan TAB] 150 mg PO ONCE #1 tablet 04/12/19 Unknown Rx Loratadine (Nf) [Claritin] 10 mg PO DAILY 30 Days #30 tablet 04/12/19 Unknown Rx predniSONE [Deltasone] 3 tab PO QDAY 3 Days #9 tab 04/12/19 Unknown Rx Albuterol Sulfate [Proair 90 mcg IH Q4H #1 aer.pow.ba 12/13/20 Unknown Rx Respiclick] predniSONE [Deltasone] 20 mg PO QDAY 5 Days tab 12/13/20 Unknown Rx ED Physical Exam - General Limitations: No Limitations - Other Other exam information: General: Awake and alert. Mild respiratory distress. Head: Atraumatic, normocephalic. Eyes: EOMI. Pupils are equal and round. Normal sclera and conjunctiva. ENT: Oral mucosa is moist. Normal pharyngeal exam. Neck: Supple. No lymphadenopathy. Pulmonary: Tachypneic. Mild respiratory distress. Diffuse expiratory wheezing. Diminished air movement. Cardiac: Tachycardic. Pulses are palpable and equal bilaterally. No lower extre mity cyanosis or edema. Skin: Warm and dry. No rashes. Abdomen: Soft, non-tender, non-protuberant. No guarding, rigidity, or rebound. Bowel sounds are normal. No organomegaly or masses noted. Back: Normal alignment. No CVA tenderness. Extremities: Symmetrical. Full range of motion intact. No calf tenderness. Equal calf circumference. Neurological: Alert and oriented, appropriately interactive, no focal deficits. Psych: Cooperative. Appropriate mood and affect. Speech is evenly metered. Thoughts are logically construed. ED Course Vital Signs 12/13/20 12/13/20 20:07 20:23 Temperature 98.8 F Pulse Rate 120 H Pulse Rate [ 110 H Bilateral] Respiratory 28 H Rate Respiratory 20 Rate [Bilateral ] Blood Pressure 143/73 O2 Sat by Pulse 98 Oximetry ED Medical Decision Making - Medical Decision Making Differential diagnosis including but not limited to: asthma exacerbation, pulmonary embolism, pleural effusion, pneumothorax On reevaluation, patient is stable and states her symptoms have significantly improved. Repeat cardiopulmonary exam demonstrate tremendous improvement with air movement and resolution of wheezing. Tachypnea resolved. Tachycardia improved; heart rate likely still mildly elevated due to effect of beta agonist. Patient adamantly endorses compliance with her anticoagulation and once again denies pleuritic chest pain and lower extremity symptoms. Clinical presentation is suggestive of asthma exacerbation. No clinical indication for further diagnostic work-up on an emergent basis at this time. Based on the patient's coughing/wheezing rapidly improving with asthma treatment, risk of chest CTA to assess for PE recurrence outweighs benefit, particularly since patient is compliant with her medications and in the third trimester of her . Patient is feeling better and states she is ready to be discharged home. She will be prescribed a refill of her albuterol inhaler and provided with a prescription for steroids. Emphasized the importance of consulting her surg rn this week before starting the steroids. Patient expressed understanding and is agreeable to plan of care. Strict return precautions provided. Repeat exam is unremarkable and benign. History, exam, diagnostic testing, and current condition do not suggest worrisome pathology to warrant further testing, continued ED treatment, admission, or surgical evaluation at this point. Given the low probability of a significant medical illness, it would be more likely to result in harm than benefit to perform further testing at this stage. Discussed findings, presumptive diagnosis, need for follow-up and specific signs/symptoms that should prompt immediate return to the emergency department. Instructions were explained in detail to the patient in addition to giving written discharge information. Patient expressed understanding and was given the opportunity to ask questions, all of which were satisfactorily answered prior to discharge home. Case discussed with Dr. Flores, attending emergency physician, who agrees with diagnostic work-up/plan of care. Critical care attestation.: If time is entered above; I have spent that time in minutes in the direct care of this critically ill patient, excluding procedure time. ED Disposition Clinical Impression: Third trimester Asthma exacerbation Qualifiers: Asthma severity: unspecified severity Asthma persistence: unspecified Qualified Code(s): J45.901 - Unspecified asthma with (acute) exacerbation Disposition: - TO HOME OR SELFCARE Is pt being admited?: No Does the pt Need Aspirin: No Condition: Stable Instructions: Third Trimester of , [id number], Asthma, Adult, [id number] Additional Instructions: Continue all medications as previously prescribed. Use albuterol inhaler as directed. Rest. Drink plenty of fluids. Gradually advance physical activity slowly as tolerated. Avoid environmental triggers which may worsen your symptoms. You have been provided with a prescription for Prednisone. Please consult your surg rn before filling the prescription and starting the medication. Follow-up with your surg rn this week. Call tomorrow to schedule an appointment. Return to the emergency department immediately for new or worsening symptoms. Specifically, return to the emergency department immediately for fever, dif ficulty breathing, wheezing, mental status changes, chest pain, pain/swelling of your legs, or any other concerns. Prescriptions: predniSONE [Deltasone] 20 mg PO QDAY 5 Days tab Albuterol Sulfate [Proair Respiclick] 90 mcg IH Q4H #1 aer.pow.ba Referrals: [facility] [Provider Group] - 3-5 Days Time of Disposition: 21:35
== END 2020-12-13 22:10 | disposition home or self-care (01) ==
LOC: ED 19:27
DX: O99.513 Diseases of the respiratory system complicating pregnancy, third trimester (principal); J45.901 Unspecified asthma with (acute) exacerbation; I10 Essential (primary) hypertension; Z3A.36 36 weeks gestation of pregnancy; Z98.890 Other specified postprocedural states; Z87.891 Personal history of nicotine dependence; Z79.899 Other long term (current) drug therapy; Z88.8 Allergy status to other drugs, medicaments and biological substances
CPT/HCPCS: 94644; 96374; 99283; J1100

== ENCOUNTER 2020-12-14 17:07 | Outpatient (CLI) | payer MEDICAID ==
[2020-12-14 17:56] VITALS: BP 104/62
[2020-12-14] MEDS ORDERED: LEVALBUTEROL 0.63 MG/3 ML NEBU IH ONE (18:32)
[2020-12-14] MEDS ORDERED: LEVALBUTEROL 0.63 MG/3 ML NEBU IH PRN (18:46)
--- NOTE | 2020-12-14 20:33 | XRay Report ---
CHEST 1 VIEW INDICATION / CLINICAL INFORMATION: cough. FINDINGS: SUPPORT DEVICES: None. HEART / MEDIASTINUM: No significant abnormality. LUNGS / PLEURA: No significant pulmonary or pleural abnormality. No pneumothorax. ADDITIONAL FINDINGS: No significant additional findings. IMPRESSION: 1. No acute findings. Signer Name: Sharan Goodman MD Signed: 12/14/2020 8:29 PM Workstation Name: [id number]
== END 2020-12-14 21:39 | disposition home or self-care (01) ==
LOC: TRG 17:07 → APU 17:40 → TRG 21:39
PROVIDERS: ATTEND Obstetrics & Gynecology
DX: Z34.93 Encounter for supervision of normal pregnancy, unspecified, third trimester (principal); R05 Cough; Z3A.36 36 weeks gestation of pregnancy
CPT/HCPCS: 59025; 71045; A9270

== ENCOUNTER 2020-12-22 09:10 | Inpatient (IN) | payer MEDICAID ==
[2020-12-22] MEDS ORDERED: FAMOTIDINE 20 MG/2 ML INJ IV SCH ×2 (09:31→10:49)
[2020-12-22] MEDS ORDERED: METOCLOPRAMIDE 10 MG/2 ML INJ IV SCH ×2 (09:31→10:49)
[2020-12-22] MEDS ORDERED: BICITRA ORAL LIQD 30ML PO SCH ×2 (09:31→10:49)
[2020-12-22] MEDS ORDERED: LACTATED RINGERS 1,000 ML IV SCH ×2 (09:45→11:00)
[2020-12-22] MEDS ORDERED: OXYTOCIN DRIP 30 UNITS/500 ML BAG IV SCH ×3 (10:00→14:00)
[2020-12-22] MEDS ORDERED: ceFAZolin/Water 2 GM/20 ML 2 GM/20 ML SYRINGE IV NR (10:00)
[2020-12-22 10:35] LABS: Basophils % (Auto) 0.3 % (0.0-1.8); Eosinophils # (Auto) 0.1 K/mm3 (0.0-0.4); Eosinophils % (Auto) 1.4 % (0.0-4.3); Hematocrit 36.2 % (30.3-42.9); Hemoglobin 11.8 gm/dl (10.1-14.3); Lymphocytes # (Auto) 2.2 K/mm3 (1.2-5.4); Mean Corpuscular HGB Conc 33 % (30-34); Mean Corpuscular Volume 82 fl (79-97); Monocytes # (Auto) 0.7 K/mm3 (0.0-0.8); Monocytes % (Auto) 10.8 % (0.0-7.3); Platelet Count 282 K/mm3 (140-440); Red Blood Count 4.44 M/mm3 (3.65-5.03); Red Cell Distribution Width 16.5 % (13.2-15.2)
--- NOTE | 2020-12-22 10:57 | History and Physical Report ---
History of Present Illness Date of examination: 12/22/20 Date of admission: 12/22/20 09:10 Chief complaint: previous X 2. DESIRE FOR BTL.38 WKS IUP History of present illness: The patient is a 30-year-old -Nepalese female 7 para 6-0-0-6 fema rose. She has a history of section x3 x2 she had grand multiparity and desires a tubal ligation she has a history of herpes she has been on suppression since 36 weeks she has a history of hypertension has been on labetalol 200 mg p.o. twice daily. Pulmonary embolism 2018 she was started on Lovenox per [facility] on 11/29/2020. [facility] she has had 6 visits at the office her EDC by ultrasound is 2020 she weighs [address] [facility]. At the clinic her blood type was O+ antibody screen was negative hematocrit is 35.5% 39.5% Pap smear was normal rubella was immune VDRL was nonreactive hepatitis B was negative HIV test was negative platelet was 292,000 varicella zoster was immune hemoglobin electrophoresis was AAA. Gonorrhea chlamydia tests were negative. His trichomonas test was negative. Hemoglobin A1c was 5.3% BUN was 3 creatinine 0.5 uric acid 2.5 LDH 186 AST 28 and ALT was 17. She had ultrasound done on 10/12/2020 consistent with 27.1 weeks with a EDC of 01/10/2021 diabetic screen was 82. Her maternal T 21 was negative. She has no allergies Her medications include Flagyl labetalol Lovenox Gummies vitamins and Valtrex 500 mg twice daily. Her family medical history is negative. She has a history of normal Pap smear she takes lisinopril prior to . Her were performed 2010 2015 and 2018. Catamenia 16 x 28 x 4 her VBACs were in 2012 2017 and another vaginal delivery was in 2007. Social history patient works at [employer] she smokes 3 to 4 cigarettes a day. The patient is admitted today for repeat section and for bilateral tubal ligation. Past History Past Medical History: hypertension, other (HX OF PULMONARY EMBOLISM) Past Surgical History: other (2 C/S) Family/Genetic History: none Social history: single - Obstetrical History Expected Date of Delivery: 01/10/21 Actual Gestation: 37 Week(s) 2 Day(s) : 7 Para: 6 Hx # Term Pregnancies: 6 Number of Pregnancies: 0 Spontaneous Abortions: 0 Induced : 0 Number of Living Children: 6 Medications and Allergies Allergies Allergy/AdvReac Type Severity Reaction Status Date / Time beeswax Allergy Swelling Verified 10/27/18 13:41 sun Allergy Severe Swelling Uncoded 12/14/20 18:01 Home Medications Medication Instructions Recorded Confirmed Last Taken Type Ferrous Sulfate [Feosol 325 MG tab] 325 mg PO BID #60 tablet 09/03/15 12/01/18 10/27/18 Rx Vit Calc,Iron,Folic 1 each PO DAILY #30 tablet 09/03/15 12/01/18 12/22/20 Rx [ Vitamins] Albuterol Sulfate [Albuterol 0.63% 0.63 mg IH TID PRN #1 inh 10/31/18 12/01/18 Unknown Rx NEBS] Azithromycin [Zithromax TAB] 500 mg PO QDAY 7 Days #7 tablet 10/31/18 12/01/18 Unknown Rx Budesonide/Formoterol Fumarate 10.2 gm IH BID 39 Days #1 10/31/18 12/01/18 Unknown Rx [Symbicort 160-4.5 Mcg Inhaler] hfa.aer.ad MDD 2 INHALATIONS BID Ibuprofen [Motrin] 800 mg PO Q8HR PRN #30 tablet 12/02/18 Unknown Rx Albuterol Mdi (or & Nicu Only) 2 puff IH QID PRN #8.5 gram 04/12/19 Unknown Rx [ProAir HFA Inhaler] Doxycycline Hyclate [Doxycycline 100 mg PO Q12HR 10 Days #20 tab 04/12/19 Unknown Rx Hyclate TAB] Fluconazole (Nf) [Diflucan TAB] 150 mg PO ONCE #1 tablet 04/12/19 Unknown Rx Albuterol Sulfate [Proair 90 mcg IH Q4H #1 aer.pow.ba 12/13/20 Unknown Rx Respiclick] Lovenox 1 insert SUB-Q HS 12/22/20 12/22/20 12/21/20 History lisinopriL 1 tab PO BID 12/22/20 12/22/20 12/21/20 History Active Meds: Active Medications Citric Acid/Sodium Citrate (Bicitra Oral Liqd 30ml) 30 ml PO ONCE AMIE Stop: 12/22/20 23:00 Famotidine (Famotidine 20 Mg/2 Ml Inj) 20 mg IV ONCE AMIE Stop: 12/22/20 23:00 Lactated Ringer's (Lactated Ringers) 1,000 mls @ 2,250 mls/hr IV PREOP AMIE Stop: 12/23/20 10:12 Last Admin: 12/22/20 10:22 Dose: 2,250 mls/hr Documented by: Oxytocin/Sodium Chloride (Pitocin/Ns 30 Unit/500ml) 30 units in 500 mls @ 0 mls/hr IV TITR AMIE; Protocol Cefazolin Sodium (Ancef/Sterile Water 2 Gm/20 Ml) 2 gm in 20 mls @ 80 mls/hr IV PREOP NR; Protocol Stop: 12/22/20 23:00 Metoclopramide HCl (Metoclopramide 10 Mg/2 Ml Inj) 10 mg IV ONCE AMIE Stop: 12/22/20 23:32 Review of Systems All systems: negative - Vital Signs Vital signs: Vital Signs Pulse Pulse Ox 102 H 97 12/22/20 09:55 12/22/20 09:55 Temp Pulse Resp BP Pulse Ox 98.4 F 93 H 16 128/70 98 12/22/20 09:58 12/22/20 10:50 12/22/20 09:58 12/22/20 09:59 12/22/20 10:50 - Physical Exam Breasts: Cardiovascular: Regular rate, Normal S1, Normal S2 Lungs: Positive: Clear to auscultation, Normal air movement Abdomen: Positive: normal appearance, soft, normal bowel sounds. Negative: distention, tenderness Genitourinary (Female): Positive: normal external genitalia, normal perenium Vulva: both: normal Vagina: Positive: normal moisture. Negative: discharge Cervix: Negative: lesion, discharge Uterus: Positive: normal size, enlarged (37 WKS), normal contour Adnexa: both: normal Anus/Rectum: Positive: normal perianal skin, heme negative. Negative: rectal mass, hemorrhoids Extremities: Positive: normal Deep Tendon Reflex Grade: Normal +2 - Obstetrical FHR: category 1 Uterine Contraction Monitor Mode: External Uterine Contraction Duration: NONE Results Result Diagrams: 12/22/20 10:15 Abnormal lab results 12/22/20 Range/Units 10:15 MCH 27 L (28-32) pg RDW 16.5 H (13.2-15.2) % Real % (Auto) 10.8 H (0.0-7.3) % All other labs normal. Assessment and Plan 37-week intrauterine history of hypertension. History of pulmonary embolism on Lovenox. Obesity. Precesarean section x2. Plan low transverse section and bilateral tubal ligation end of history and physical on teratomas by Dr. Barragan thank you
--- NOTE | 2020-12-22 11:34 | Anesthesia Day of Surgery ---
Anesthesia Day of Surgery - Day of Surgery Patient Examined: Yes Patient H&P Reviewed: Yes Patient is NPO: Yes Beta Blockers: Yes Cardiac Clearance: No Pulmonary Clearance: No Alex's Test: N/A
--- NOTE | 2020-12-22 11:38 | Anesthesia Consultation ---
Anesthesia Consult and Med Hx Date of service: 12/22/20 - Airway Anesthetic Teeth Evaluation: Poor ROM Head & Neck: Adequate Mental/Hyoid Distance: Adequate Mallampati Class: Class III Intubation Access Assessment: Probably Good - Pulmonary Exam CTA: Yes - Cardiac Exam Cardiac Exam: RRR - Pre-Operative Health Status ASA Pre-Surgery Classification: ASA3 Proposed Anesthetic Plan: Spinal - Pulmonary Hx Smoking: Yes (quit 03/21) Hx Asthma: Yes (last attact 12/21) Hx Respiratory Symptoms: Yes (Pulmonary Embolism-2019. Last Lovenox dose 12/20/20) SOB: No COPD: No Home Oxygen Therapy: No Hx Pneumonia: No Hx Sleep Apnea: No - Cardiovascular System Hx Hypertension: Yes Hx Coronary Artery Disease: No Hx Heart Attack/AMI: No Hx Angina: No Hx Percutaneous Transluminal Coronary Angioplasty (PTCA): No Hx Cardia Arrhythmia: No Hx Pacemaker: No Hx Internal Defibrillator: No Hx Valvular Heart Disease: No Hx Heart Murmur: No Hx Peripheral Vascular Disease: No - Central Nervous System Hx Neuromuscular Disorder: No Hx Seizures: No CVA: No Hx Back Pain: Yes Hx Psychiatric Problems: No - Gastrointestinal Hx Ulcer: No Hx Gastroesophageal Reflux Disease: Yes - Endocrine Hx Renal Disease: No Hx End Stage Renal Disease: No Hx Cirrhosis: No Hx Liver Disease: No Hx Insulin Dependent Diabetes: No Hx Non-Insulin Dependent Diabetes: No Hx Thyroid Disease: No Hx Hypothyroidism: No Hx Hyperthyroidism: No - Hematic Hx Anemia: No (2012) Hx Sickle Cell Disease: No - Other Systems Hx Alcohol Use: No Hx Substance Use: No Hx Cancer: No Hx Obesity: Yes
[2020-12-22] MEDS ORDERED: HYDROmorphone 1 MG/1 ML INJ IV PRN (12:00)
[2020-12-22] MEDS ORDERED: NALOXONE 0.4 MG/1 ML INJ IV PRN ×2 (12:00→13:57)
[2020-12-22] MEDS ORDERED: ONDANSETRON 4 MG/2 ML INJ IV PRN ×2 (12:00→14:00)
[2020-12-22] MEDS ORDERED: SUCCINYLCHOLINE CHLORIDE 200 MG/10 ML INJ MDV ONE (12:30)
[2020-12-22] MEDS ORDERED: propofoL 200 MG/20 ML VIAL IV ONE (12:30)
[2020-12-22] MEDS ORDERED: LIDOCAINE MPF (2%) 20 MG/1 ML VIAL 5 ML ONE (12:31)
[2020-12-22] MEDS ORDERED: SODIUM CHLORIDE 0.9% IRR 1,000 ML BOTTLE IR ONE (12:54)
[2020-12-22] MEDS ORDERED: WATER FOR IRRIG STERILE 1,000 ML BOTTLE IR ONE (12:54)
[2020-12-22] MEDS ORDERED: HYDROmorphone 1 MG/1 ML INJ ONE (13:02)
[2020-12-22] MEDS ORDERED: KETAMINE/STERILE WATER 50 MG/ML SYRINGE ONE (13:13)
[2020-12-22] MEDS ORDERED: KETOROLAC 30 MG/1 ML INJ ONE (13:16)
[2020-12-22] MEDS ORDERED: ROCURONIUM 50 MG/5 ML INJ IV ONE (13:25)
[2020-12-22] MEDS ORDERED: NEOSTIGMINE 10MG/10 ML INJ MDV ONE (13:52)
[2020-12-22] MEDS ORDERED: GLYCOPYRROLATE 0.4 MG/2 ML INJ ONE (13:53)
[2020-12-22] MEDS ORDERED: LANOLIN/ZINC/DIMETHICONE (LANSINOH) 7 GM TP PRN (13:57)
[2020-12-22] MEDS ORDERED: WITCH HAZEL/ GLYCERIN PAD TP PRN (13:57)
[2020-12-22] MEDS ORDERED: dexAMETHasone 20 MG/5 ML VIAL ONE (14:00)
[2020-12-22] MEDS ORDERED: MORPHINE 4 MG/1 ML INJ IV PRN (14:00)
[2020-12-22] MEDS ORDERED: ACETAMINOPHEN 325 MG TAB PO PRN (14:00)
--- NOTE | 2020-12-22 14:23 | Progress Note ---
Spinal Anesthesia Block - Spinal Anesthesia Block Start Time: 12:00 Stop Time: 12:12 Performed by:: CHATO BEYER Procedure: Patient uncooperative for procedure, unable to maintain proper positioning. Complained of pressure pain when attempting to place spinal needle. It was decided to convert to GETA since the procedure could not be performed safely.
--- NOTE | 2020-12-22 14:35 | Procedure Note ---
Date of procedure: 12/22/20 Pre-op diagnosis: 38 wks iup, hx of prior pulmonary embolism, multiparity Post-op diagnosis: same Procedure: This is Dr. Mg dictating operative report on the patient Gina Tubbs. Preoperative diagnosis 39-week intrauterine previous section x2 history of pulmonary embolism, multiparity and desire for bilateral tubal ligation. Postoperative diagnosis same, omental abdominal wall adhesions adhesions in the lower pelvis from the previous section. Procedure repeat low transverse section, bilateral Matthew tubal ligation. Lysis of adhesions. Anesthesia General with intubation. Drains Esquivel. Specimen none. Estimated blood loss 600 cc. Findings liveborn female infant weighing 5 pounds 9 ounces with Apgars 8 and 9. IV fluids 1 L. Urine output 150 cc. Time of surgery was 1 hour. Patient was taken to the operatory we could not get a spinal anesthetic or epidural anesthetic. Subsequently the patient was made ready for general anesthetic once we had prepped and draped and given her indwelling Esquivel catheter. We then created a Pfannenstiel incision along the previous Pfannenstiel incision and into the abdominal cavity anatomically because she had several previous surgeries she had adhesions in the lower pelvis muscle stretch these adhesions the vesicouterine peritoneum was stuck up high subsequently we opened the lower uterine segment with a scalpel. And a fetus in occiput anterior presentation was then with baby had nuchal cord and cord wrapped around extremity. Uterus so that opened up the vesicouterine peritoneum. The baby had a nuchal cord and cord wrapped around extremities. Nasopharynx and oropharynx were suctioned with the bulb. Chronic cord was doubly clamped and cut. Cord blood was obtained baby was passed off to the nurses from the nursery. Subsequently uterus was delivered extra-abdominal uterus the placenta was then delivered manually uterus was cleaned of debris membranes uterine incision was repaired in 2 layers first layer was in deep manage using running 0 Vicryl and the second was superficial myometrium was repaired with running 2-0 Vicryl. Because the patient had a previous adhesions we opened the vesicouterine peritoneum related adhesion barrier across the base of the incision because we did have a vesicouterine peritoneum to reapproximate. All instruments removed from abdominal cavity uterus brought back to abdominal cavity prior to that we did use a [place] to elevate the fallopian tubes and a window was made in the broad ligament of each fallopian tube was then a 2 cm segment of fallopian tube was tied distally and proximally 0 chromic the tach portion of fallopian tube was removed with scissors and so we have a segment from the right fallopian tube left fallopian tube that was only fallopian tube. This was felt to be adequate sterilization by myself as operating surgeon. At this point the uterus was dropped back into the abdominal cavity. Because of the adhesions we could not close the anterior abdominal peritoneum and we closed the rectus muscles with 2-0 chromic suture the fascia was closed with running 2- 0 running 0 Vicryl the subcutaneous tissue was closed with running 2-0 chromic skin was repaired with running subcuticular 4-0 Vicryl on a Volodymyr needle and drained with Dermabond patient tolerated procedure well she was then returned to the recovery room in stable condition end of operative note on Nyasia anderson. Anesthesia: GETA Surgeon: CADE MG Estimated blood loss: other (500) IV fluids: 1,000 Urine output: 150 Pathology: list (portion of right and left fallopian tubes.) Specimen disposition: to lab Condition: stable Disposition: PACU
[2020-12-22] MEDS: HYDROmorphone 1 MG/1 ML INJ IV PRN ×2 (14:47→14:58)
[2020-12-22] MEDS: ENOXAPARIN 40 MG/0.4 ML INJ SUB-Q SCH (21:47)
[2020-12-23] MEDS: ALBUTEROL 2.5 MG/3 ML NEBU IH SCH ×2 (02:49→10:34)
[2020-12-23] MEDS ORDERED: D5W/LACTATED RINGERS 1,000 ML IV SCH (03:00)
[2020-12-23 04:04] LABS: Hematocrit 32.1 % (30.3-42.9); Hemoglobin 10.6 gm/dl (10.1-14.3)
[2020-12-23] MEDS: HYDROcodone/ACETAMINOPHEN 5-325 MG TAB PO PRN ×3 (05:17→18:23)
--- NOTE | 2020-12-23 09:28 | Post Anesthesia Evaluation ---
- Post Anesthesia Evaluation Patient Participated: Yes Airway Patent: Yes Stable Respiratory Function: Yes Nausea/Vomiting: Yes Temp > 96.8F: No Pain Manageable: Yes Adequeate Hydration: Yes Anesthesia Complications: No Block Receding Appropriately: Yes Patient on Ventilator: No
[2020-12-23] MEDS: IBUPROFEN 600 MG TAB PO PRN (12:18)
--- NOTE | 2020-12-23 13:48 | Progress Note ---
Assessment and Plan A: /postop day 1 S/P repeat LTCS with BTL. Anemia. History of PE in 2019; on Lovenox. Chronic hypertension. Obesity. P: Supplement with iron. Continue Lovenox as ordered. Routine /postop care. Subjective - Subjective Date of service: 12/23/20 Principal diagnosis: /postop day 1 S/P repeat LTCS with BTL Interval history: History of PE in 2019; on Lovenox. Patient denies chest pain, shortness of breath, leg pain, or any other problems. Patient reports small amount of lochia. Patient reports: appetite normal, voiding normally, pain well controlled, flatus, ambulating normally, no dizzy ambulation, no nauseated [place]: doing well Objective - Vital Signs Latest vital signs: Vital Signs Temp Pulse Pulse Resp Resp BP BP 12/23/20 12:24 98.4 F 88 18 123/63 12/23/20 10:34 82 14 12/23/20 08:31 97.8 F 91 H 18 122/70 12/23/20 05:17 20 12/23/20 02:56 90 16 12/23/20 02:19 98.1 F 86 18 118/70 12/22/20 21:43 98.0 F 86 16 104/62 12/22/20 19:52 18 12/22/20 16:30 98.7 F 87 20 114/56 12/22/20 15:50 98.6 F 86 18 107/55 12/22/20 15:40 89 18 119/64 12/22/20 15:30 18 111/61 12/22/20 15:15 98.7 F 78 14 111/59 12/22/20 15:00 76 16 117/54 12/22/20 14:58 16 12/22/20 14:47 16 12/22/20 14:45 98.9 F 76 16 110/56 12/22/20 14:35 72 16 10/53 12/22/20 14:30 98 F 74 18 133/61 12/22/20 14:20 80 16 116/61 12/22/20 14:15 98 F 78 16 121/63 12/22/20 14:10 97.3 F L 14 112/56 12/22/20 14:06 80 14 110/56 Pulse Ox 12/23/20 12:24 98 12/23/20 10:34 12/23/20 08:31 97 12/23/20 05:17 12/23/20 02:56 12/23/20 02:19 97 12/22/20 21:43 97 12/22/20 19:52 12/22/20 16:30 12/22/20 15:50 95 12/22/20 15:40 96 12/22/20 15:30 94 12/22/20 15:15 94 12/22/20 15:00 97 12/22/20 14:58 12/22/20 14:47 12/22/20 14:45 99 12/22/20 14:35 100 12/22/20 14:30 97 12/22/20 14:20 98 12/22/20 14:15 97 12/22/20 14:10 97 12/22/20 14:06 97 Intake and Output 12/22/20 12/23/20 12/23/20 23:59 07:59 15:59 Intake Total 340 Output Total 100 2000 600 Balance -100 -1660 -600 Intake: Intake, Free Water 340 Output: Urine 100 2000 600 Indwelling Catheter 100 1500 Void 500 600 Other: Total, Output Amount 100 500 600 - Exam Cardiovascular: Present: Regular rate Lungs: Present: Clear to auscultation Abdomen: Present: normal appearance, soft, normal bowel sounds. Absent: distention, tenderness, guarding, rigidity Uterus: Present: normal, firm, fundal height below umbilicus. Absent: boggi ness, tenderness Extremities: Absent: tenderness, edema Incision: Present: normal, dry, intact
[2020-12-23] MEDS: FERROUS SULFATE 325 MG TAB PO SCH (16:28)
[2020-12-24] MEDS: HYDROcodone/ACETAMINOPHEN 5-325 MG TAB PO PRN (00:48)
[2020-12-24] MEDS: ENOXAPARIN 40 MG/0.4 ML INJ SUB-Q SCH (00:50)
[2020-12-24] MEDS: FERROUS SULFATE 325 MG TAB PO SCH (09:25)
[2020-12-24] MEDS: IBUPROFEN 600 MG TAB PO PRN (09:26)
[2020-12-24] MEDS: ALBUTEROL 2.5 MG/3 ML NEBU IH SCH ×2 (10:35→14:16)
--- NOTE | 2020-12-24 13:24 | Discharge Summary ---
Providers - Providers Date of Admission: 12/22/20 09:10 Date of discharge: 12/24/20 Attending physician: CADE TIERNEY MD Primary care physician: BALAJI MARIA Hospitalization Reason for admission: section Delivery: Procedure: section, bilateral tubal ligation, repeat low transverse Laceration: none Incision: normal Other procedures: tubal ligation complications: other (mild left lower extremity swelling.) Discharge diagnosis: IUP at term delivered Hospital course: The patient is a 30-year-old -[place] female 7 para 6-0-0-6 female. She has a history of section x3 x2 she had grand multiparity and desires a tubal ligation she has a history of herpes she has been on suppression since 36 weeks she has a history of hypertension has been on labetalol 200 mg p.o. twice daily. Pulmonary embolism 2018 she was started on Lovenox per [facility] on 11/29/2020. [facility] she has had 6 visits at the office her EDC by ultrasound is 2020 she weighs 295 pounds. Patient doing well on postoperative day 2 however noted to staff that she was having left lower extremity bruising and potential swelling. She reports compliance with her Lovenox. Provider recommended Doppler ultrasound prior to discharge home but patient declined and requested to leave AGAINST MEDICAL ADVICE. Reports that she would continue with her current Lovenox dose at present if indicated. Plan follow-up as outpatient within this next week. Disposition: DC- TO HOME OR SELFCARE Plan - Provider Discharge Summary Activity: no sex for 6 weeks, no heavy lifting 4 weeks, no strenuous exercise Diet: routine Instructions: routine Additional instructions: [] Smoking cessation referral if applicable(refer to patient education folder for contact #) [] Refer to [facility] Booklet Call your doctor immediately for: * Fever > 100.5 * Heavy vaginal bleeding ( >1 pad per hour) * Severe persistent headache * Shortness of breath * Reddened, hot, painful area to leg or breast * Drainage or odor from incision. * Keep incision clean and dry at all times and follow doctor's instructions reg arding bathing/showering - Follow up plan Follow up: CADE TIERNEY MD [Staff Physician] - 7 Days Forms: [facility] [place] Discharge Summary
[2020-12-24 13:55] VITALS: BP 137/79
== END 2020-12-24 13:25 | disposition left against medical advice (07) | DRG 766 ==
LOC: APU 09:10 → OB 16:35
PROC: 10D00Z1 Extraction of Products of Conception, Low, Open Approach (ICD-10-PCS; principal; 2020-12-22)
PROC: 0UB70ZZ Excision of Bilateral Fallopian Tubes, Open Approach (ICD-10-PCS; 2020-12-22)
DX: O99.214 Obesity complicating childbirth (principal); Z3A.38 38 weeks gestation of pregnancy; O99.62 Diseases of the digestive system complicating childbirth; O99.02 Anemia complicating childbirth; K21.9 Gastro-esophageal reflux disease without esophagitis; Z37.0 Single live birth; Z53.29 Procedure and treatment not carried out because of patient's decision for other reasons; O99.892 Other specified diseases and conditions complicating childbirth; N73.6 Female pelvic peritoneal adhesions (postinfective); O34.211 Maternal care for low transverse scar from previous cesarean delivery; O16.4 Unspecified maternal hypertension, complicating childbirth; Z20.822 Contact with and (suspected) exposure to COVID-19; Z64.1 Problems related to multiparity; Z86.711 Personal history of pulmonary embolism; Z91.048 Other nonmedicinal substance allergy status; Z30.2 Encounter for sterilization; D64.9 Anemia, unspecified
CPT/HCPCS: 36415; 85014; 85018; 85025; 86850; 86900; 86901; 88302; 94640; 99406; G0378; J0330; J1100; J1170; J1650; J1885; J2704; J2710; J2765; J3490; J7120; J7121; U0003